=== PATIENT | male | born 1955 | race Caucasian/White ===

== ENCOUNTER 2018-03-21 14:35 | Emergency (ER) | payer MEDICAID, SELFPAY ==
[2018-03-21] VITALS (7 sets, daily range): BP systolic 103–141; BP diastolic 69–89; PULSE 86–94; RESP 16–25; TEMP 36.9; O2SAT 96–99; BMI 46.7
--- NOTE | 2018-03-21 14:49 | CT_ITS ---
STUDY: CT BRAIN WITHOUT CONTRAST REASON FOR EXAM: Male, 62 years old. Trauma RADIATION DOSAGE (If Supplied By Facility): CTDIvol = ( 44.99 ) mGy, DLP = ( 779.24 ) mGycm TECHNIQUE: Transaxial CT imaging of the brain was performed without administration of intravenous contrast material. Individualized dose optimization techniques were used for this CT. COMPARISON: Report of previous study of 04/24/2012 FINDINGS: Normal soft tissue structures. Normal calvarium. There is mild cerebral atrophy with widening of the extra-axial spaces and ventricular dilatation. Normal white matter tracts of the cerebral hemispheres. Normal basal ganglia and thalami. Normal brainstem. Normal cerebellum. There is no intracranial hemorrhage. There are no findings of an acute ischemic infarction. There is mucosal thickening of the left maxillary sinus and visualized bilateral frontal sinuses. CT/Brain/Head without Contrast IMPRESSION: Chronic involutional changes of the brain. Chronic pansinusitis. There is no intracranial hemorrhage or calvarial fracture. Electronically Signed: Sami Leon MD at 16:50 EDT , Service support ,
--- NOTE | 2018-03-21 14:51 | CT_ITS ---
STUDY: CT CERVICAL SPINE WITHOUT CONTRAST REASON FOR EXAM: Male, 62 years old. Fall. RADIATION DOSAGE (If Supplied By Facility): CTDIvol = ( 38.54 ) mGy, DLP = ( 777.17 ) mGycm TECHNIQUE: High resolution transaxial imaging was performed without contrast material. Sagittal and coronal images were reconstructed. Individualized dose optimization techniques were used for this CT. COMPARISON: None FINDINGS: Examination is limited by patient's size which causes artifact and significantly decreased resolution. Craniocervical junction and C1-C2 articulations are intact. There is straightening. There is normal alignment. No definite acute fractures or dislocations. Small fractures however cannot be excluded. Facet joints intact at all levels. Mild degenerative disc disease and loss of disc height at C5-C6 and C6-C7. The visualized soft tissues show no gross acute abnormalities. CT/Spine Cervical without Contras IMPRESSION: Limited by patient's size. No gross acute fracture/dislocation.. Electronically Signed: Juan Chou MD at 16:29 EDT , Service support ,
--- NOTE | 2018-03-21 14:59 | ED.VISSUMM ---
- ER Visit Summary Date of Service: 03/21/18 Chief Complaint: Fall unknown cause with decreased level of consciousness History of Present Illness: The patient is a 62 M who [facility]. Had a fall. Circumstances led to the fall are uncertain. The sales project manager from the nursing facility presently with the patient saw him fall. She states he had loss of consciousness. He is confused and not alert, which is abnormal for patient. Per review of old records and what sales project manager is able to tell me he is on no anticoagulant. He does have history of diabetes type 2 with insulin dependency. Patient's biggest complaint is pain. He complains of neck pain question chest pain. He does complain of head pain. He denies any nausea or vomiting. Reagent Tender states he did complain of abdominal pain. History is limited secondary to patient's altered mental status. Physical Examination: Vitals are unremarkable. He is not hypoxic. BMI is 46.8. There is no obvious head trauma. Pupils equal round reactive. Extra muscle intact. Sclerae anicteric. There is no hemotympanum. There is no CSF otorrhea or rhinorrhea. He does have pain the patient cervical spine. He remained with his head immobilized. Trachea is midline. There is no stridor. Lungs reveal rales at both bases with diminished breath sounds. This may be limited secondary fact the patient is supine as a prominent abdomen, which is restricting his expiratory volume. Heart is regular. Heart tones are distant. There is no obvious murmur, gallop or rub. Abdomen is marked for multiple ecchymotic areas. Abdominal wall veins are prominent. Unable to assess for hepatosplenomegaly secondary to body habitus. There is no caput medusa noted even though his veins are prominent. There is no CVA tenderness. Difficult to assess for thoracic lumbar tenderness. He has no pain the patient the pelvis. He has stigmata of peripheral vascular disease lower extremity. DP pulses absent bilaterally. He is not alert. He is disoriented to time. GCS is 14. He does move all extremities. DTRs are symmetric with no clonus or Babinski. Range 2 through 12 are intact. Test Results: CT of the head reveals no evidence of intracranial bleed. There is no acute findings. There is evidence of left maxillary sinusitis, chronic. C-spine reveals minimal degenerative changes C5-6. There is no fracture, subluxation or dislocation. There is no soft tissue swelling. White count is slightly elevated 12.5. Electro panel is marked for sodium 129 and chloride of 92. Glucose 119. Coags normal. EKG revealed a sinus rhythm with no ischemic changes. Emergency Department Course and Treatment: In light of patient's multiple medical problems decreased level consciousness secondary to fall need to rule out intracranial process. Since she has history of COPD with a BMI of approximate 47 one needs to rule out CO2 retention. An ABG was obtained. EKG was obtained to rule out cardiac dysrhythmia/ischemia. Appropriate blood work was also obtained including a PTT to rule out hypo-glycemia. Because he complains of neck pain a CT was obtained since he has a short neck and a cervical x-ray would be limited at best. Treatment Plan: When patient was reassessed at 1701. He was sitting up in no distress and back to baseline. The exact mechanism of his fall is unknown however with negative workup and return to baseline he will be discharged to nursing facility. Disposition: Discharged to nursing facility Impression: 1. Fall with injury 2. Concussion with loss of consciousness initial encounter 3. Hyponatremia secondary to diuretic 4. History of COPD 5. History of schizophrenia This note was generated with BlooBox dictation software. It may contain incorrect words, spelling, and punctuation that were not noted in review of the chart prior to signing ED Disposition - Plan for ED Patient: Disposition: [facility] Facility Chief Complaint: Fall Instructions: ED Fall Uncertain Cause, ED Concussion, ED Hyponatremia Referrals: Apolinar Win [Primary Care Provider] - 3-5 Days
--- NOTE | 2018-03-21 15:04 | ED.DCSUM_ITS ---
- ER Visit Summary Date of Service: 03/21/18 Chief Complaint: Fall unknown cause with decreased level of consciousness History of Present Illness: The patient is a 62 M who resides at a residential. Had a fall. Circumstances led to the fall are uncertain. The knitting machine operator from the nursing facility presently with the patient saw him fall. She states he had loss of consciousness. He is confused and not alert, which is abnormal for patient. Per review of old records and what knitting machine operator is able to tell me he is on no anticoagulant. He does have history of diabetes type 2 with insulin dependency. Patient's biggest complaint is pain. He complains of neck pain question chest pain. He does complain of head pain. He denies any nausea or vomiting. Door Frame Assembler Machine states he did complain of abdominal pain. History is limited secondary to patient's altered mental status. Physical Examination: Vitals are unremarkable. He is not hypoxic. BMI is 46.8. There is no obvious head trauma. Pupils equal round reactive. Extra muscle intact. Sclerae anicteric. There is no hemotympanum. There is no CSF otorrhea or rhinorrhea. He does have pain the patient cervical spine. He remained with his head immobilized. Trachea is midline. There is no stridor. Lungs reveal rales at both bases with diminished breath sounds. This may be limited secondary fact the patient is supine as a prominent abdomen, which is restricting his expiratory volume. Heart is regular. Heart tones are distant. There is no obvious murmur, gallop or rub. Abdomen is marked for multiple ecchymotic areas. Abdominal wall veins are prominent. Unable to assess for hepatosplenomegaly secondary to body habitus. There is no caput medusa noted even though his veins are prominent. There is no CVA tenderness. Difficult to assess for thoracic lumbar tenderness. He has no pain the patient the pelvis. He has stigmata of peripheral vascular disease lower extremity. DP pulses absent bilaterally. He is not alert. He is disoriented to time. GCS is 14. He does move all extremities. DTRs are symmetric with no clonus or Babinski. Range 2 through 12 are intact. Test Results: CT of the head reveals no evidence of intracranial bleed. There is no acute findings. There is evidence of left maxillary sinusitis, chronic. C-spine reveals minimal degenerative changes C5-6. There is no fracture, subluxation or dislocation. There is no soft tissue swelling. White count is slightly elevated 12.5. Electro panel is marked for sodium 129 and chloride of 92. Glucose 119. Coags normal. EKG revealed a sinus rhythm with no ischemic changes. Emergency Department Course and Treatment: In light of patient's multiple medical problems decreased level consciousness secondary to fall need to rule out intracranial process. Since she has history of COPD with a BMI of approximate 47 one needs to rule out CO2 retention. An ABG was obtained. EKG was obtained to rule out cardiac dysrhythmia/ischemia. Appropriate blood work was also obtained including a PTT to rule out hypo-glycemia. Because he complains of neck pain a CT was obtained since he has a short neck and a cervical x-ray would be limited at best. Treatment Plan: When patient was reassessed at 1701. He was sitting up in no distress and back to baseline. The exact mechanism of his fall is unknown however with negative workup and return to baseline he will be discharged to nursing facility. Disposition: Discharged to nursing facility Impression: 1. Fall with injury 2. Concussion with loss of consciousness initial encounter 3. Hyponatremia secondary to diuretic 4. History of COPD 5. History of schizophrenia This note was generated with Sparkroom dictation software. It may contain incorrect words, spelling, and punctuation that were not noted in review of the chart prior to signing ED Disposition - Plan for ED Patient: Disposition: Intermediate Facility Chief Complaint: Fall Instructions: ED Fall Uncertain Cause, ED Concussion, ED Hyponatremia Referrals: Apolinar Win [Primary Care Provider] - 3-5 Days
[2018-03-21 15:11] LABS: Base Excess 0 mmol/L (-2 to +2); Bicarbonate 25.5 mmol/L (22-26); Blood Gas Specimen Type ART; O2 Delivery Device Room Air; PO2 70 mmHG (75-100); SITE L Brachial; SO2 93 % (95-99); Time Given 1502; Total Carbon Dioxide 27 mmol/L; pCO2 45.8 mmHg (35-45); pH 7.36 (7.35-7.45)
[2018-03-21 15:24] LABS: Absolute Lymphocyte Count 1.73 X10^3/ul (0.83-4.51); Absolute Neutrophil Count 10.1 X10^3/uL (2.0-7.7); Basophil# 0.04 X10^3/uL; Basophil% 0.3 % (0-1); Eosinophil# 0.03 X10^3/uL; Eosinophils% 0.2 % (0-5); Hematocrit 38.6 % (40-54); Hemoglobin 12.7 g/dl (13.0-16.5); Lymphocyte # 1.73 X10^3/ul (4.0); Lymphocyte % 13.8 % (19-41); Mean Corp Hgb Conc 32.9 g/gl (32-36); Mean Corpuscular Hgb 30.4 pg (27.0-32.0); Mean Corpuscular Volume 92.3 fL (80-94); Mean Platelet Vol. 8.2 fl (6.2-12.0); Monocyte% 4.8 % (0-10); Neutrophil # 10.06 X10^3/uL (2.7-7.7); Neutrophil % 80.6 % (47-70); Platelet Count 284 K/mm3 (150-450); RBC Distribution Width CV 13.4 % (11.6-14.6); RBC Distribution Width SD 44.9 fl (35.1-43.9); Red Blood Count 4.18 M/mm3 (4.6-6.2); White Blood Count 12.5 K/mm3 (4.4-11.0)
[2018-03-21 15:25] LABS: POSITIVE COUNT NO; POSITIVE DIFFERENTIAL NO; POSITIVE MORPHOLOGY NO
[2018-03-21 15:26] LABS: Bedside Glucose 112 mg/dL (70-110)
[2018-03-21 15:29] LABS: Prothrombin Time (Protime)PT. 13.5 SECONDS (11.7-14.9)
[2018-03-21 15:30] LABS: Partial Thromboplast Time 29.1 Seconds (24.1-36.2)
--- NOTE | 2018-03-21 15:43 | RAD_ITS ---
STUDY: X-RAY CHEST REASON FOR EXAM: Male, 62 years old. Pain. TECHNIQUE: Single AP portable view of the chest. COMPARISON: 03/20/2014. FINDINGS: Limited by significant artifact from spine board. Normal lung volumes. Cannot exclude 1.8 cm nodule just beyond the left heart border in the mid left lung. CT scan recommended. No infiltrates. No effusions. Normal size heart. Normal mediastinum and ruben. Normal visualized pulmonary arteries. Normal visualized aortic arch and descending thoracic aorta. Normal visualized thoracic spine. Normal visualized ribs, clavicles, and shoulders. There is no demonstrated abnormality of the visualized soft tissue structures of the upper abdomen. RAD/Chest 1 View (Portable) IMPRESSION: Cannot exclude 1.8 cm nodule just beyond the left heart border in the mid left lung. CT scan recommended. Electronically Signed: Juan Chou MD at 15:51 EDT , Service support ,
[2018-03-21 15:45] LABS: Anion Gap 7 (5-15); BUN 13 mg/dL (7-18); BUN/Creat Ratio 11.3 RATIO (10-20); Calcium,Total 9.4 mg/dL (8.5-10.1); Chloride 92 mmol/L (98-107); Creatinine, Serum 1.15 mg/dL (0.70-1.30); EST Glomerular Filtration Rate 69 mL/min (>60); Est Glom Filt Rate - Afr Amer 83 mL/min (>60); Estimated Creatinine Clearance 47.71 ml/min; Glucose 119 mg/dL (74-106); Potassium 4.5 mmol/L (3.5-5.1); Sodium Level 129 mmol/L (136-145)
[2018-03-21 17:05] LABS: Color, Urine Yellow (Yellow); Glucose, Dipstick NEGATIVE (Normal); Ketone-Dipstick Negative (Negative); Protein-Dipstick 30 mg/dl (Negative); Urine Bilirubin Dipstick Negative (Negative); Urine Clarity Sl Cloudy (Clear); Urine Urobilinogen Normal (Normal)
[2018-03-21 17:06] LABS: Leukocyte Esterase-Dipstick 25 /ul (Negative); Nitrite-Dipstick Negative (Negative); Occult Blood-Urine Negative /ul (Negative)
[2018-03-21 17:08] LABS: Bacteria RARE /hpf (None Seen); Hyaline Cast 0-5 SEEN /lpf (0-5); Mucous, Urine 1+ /hpf (<or=2+); Red Blood Cells-Urine 0-5 SEEN /hpf (0-5); Squamous Epithelial Cells - UA 0-5 SEEN /hpf (0-5); White Blood Cells 0-5 SEEN /hpf (0-5)
== END 2018-03-21 17:50 | disposition skilled nursing facility (03) ==
PROVIDERS: Emergency Provider Emergency Medicine; Family Provider Family Medicine; PCP Family Medicine
DX: S06.0X9A Concussion with loss of consciousness of unspecified duration, initial encounter (principal); W19.XXXA Unspecified fall, initial encounter; Y93.9 Activity, unspecified; Y92.129 Unspecified place in nursing home as the place of occurrence of the external cause; E87.1 Hypo-osmolality and hyponatremia; J44.9 Chronic obstructive pulmonary disease, unspecified; F20.9 Schizophrenia, unspecified; I73.9 Peripheral vascular disease, unspecified; E66.9 Obesity, unspecified; Z68.42 Body mass index [BMI] 45.0-49.9, adult; E11.9 Type 2 diabetes mellitus without complications; I10 Essential (primary) hypertension; E03.9 Hypothyroidism, unspecified; Z79.82 Long term (current) use of aspirin; Z79.4 Long term (current) use of insulin; Z79.899 Other long term (current) drug therapy
CPT/HCPCS: 36600; 70450; 71045; 72125; 80048; 81001; 82803; 82962; 84484; 85025; 85610; 85730; 99285; P9612; A4216

== ENCOUNTER 2023-12-10 08:53 | Inpatient (IN) | payer MEDICAID, SELFPAY ==
[2023-12-10] VITALS (15 sets, daily range): BP systolic 95–114; BP diastolic 30–71; PULSE 80–92; RESP 16–24; TEMP 36.4–37.4; O2SAT 91–100; BMI 40.6
--- NOTE | 2023-12-10 09:08 | EKG12_ITS ---
Test Reason : SOB Blood Pressure : / mmHG Vent. Rate : 090 BPM Atrial Rate : 090 BPM P-R Int : 154 ms QRS Dur : 130 ms QT Int : 356 ms P-R-T Axes : 065 -78 032 degrees QTc Int : 435 ms Normal sinus rhythm Left axis deviation Right bundle branch block Abnormal ECG Confirmed by VIOLETTA PAINTER, SUMI ([id number]), editor continuity and script ASIF HUERTA ([id number]) on 12/11/2023 6:24:02 AM Referred By: JONATHON/SHAINA Confirmed By:SUMI SHIPLEY MD
--- NOTE | 2023-12-10 09:09 | ED.VIS.DYS ---
HPI History of Present Illness Chief Complaint: Shortness of Breath Informant: patient and EMS Onset/Context/Timing Onset: Today Context: gradual Timing: Continuous Current Severity: Moderate Maximum Severity: Moderate Associated Symptoms cough Chest Pain: Positive for None Narrative Narrative: 68-year-old male extensive past medical history of COPD, CHF, diabetes and Lynn's palsy. He is currently resides at [facility]. Reportedly today he had a room air pulse ox of 79% and it jumped up to 96% on 2 L. He was given a breathing treatment prior to arrival. Patient states he has not felt well for a week. He denies any fever but states he said a cough with nausea, vomiting and diarrhea. PE Risk Factors: Negative for Cancer, OCP + Smoking + > 35, Prior DVT or PE, Recent surgery or Recent travel Prior similar symptoms: No Recent Illness/Hospitalization: No [facility] Medical History (Updated 12/10/23 @ 11:[address] Jenna Howell, DO) Diabetes mellitus type II GERD History of Lynn's palsy History of COPD History of diabetes mellitus Hypertension Hypothyroidism Schizophrenia Home Medications acetaminophen 500 mg tablet 500 mg PO TID 03/20/14 [History Last Taken Unknown] aspirin 81 mg chewable tablet 81 mg PO DAILY@0800 03/20/14 [History Last Taken Unknown] benztropine 2 mg tablet 1 mg PO DAILY 03/20/14 [History Last Taken Unknown] carbamazepine 200 mg tablet (Tegretol) 200 mg PO 4X/DAY 03/20/14 [History Last Taken Unknown] clozapine 100 mg tablet (Clozaril) 100 mg PO BID 03/20/14 [History Last Taken Unknown] clozapine 200 mg tablet 500 mg PO QHS 03/20/14 [History Last Taken Unknown] duloxetine 20 mg capsule,delayed release 20 mg PO DAILY 03/20/14 [History Last Taken Unknown] ergocalciferol (vitamin D2) 1,250 mcg (50,000 unit) capsule (Vitamin D2) 50,000 unit PO Q7D 03/20/14 [History Last Taken Unknown] famotidine 20 mg tablet 20 mg PO BID 03/20/14 [History Last Taken Unknown] fluticasone 250 mcg-salmeterol 50 mcg/dose blistr powdr for inhalation (Advair Diskus) 1 puff inhalation BID 03/20/14 [History Last Taken Unknown] folic acid 800 mcg tablet 1 mg PO DAILY 03/20/14 [History Last Taken Unknown] furosemide 40 mg tablet 20 mg PO DAILY 03/20/14 [History Last Taken Unknown] levothyroxine 75 mcg tablet 75 mcg PO DAILY 03/20/14 [History Last Taken Unknown] lisinopril 2.5 mg tablet 2.5 mg PO DAILY 03/20/14 [History Last Taken Unknown] lorazepam 0.5 mg tablet 1 mg PO TID 03/20/14 [History Last Taken Unknown] metformin 500 mg tablet 500 mg PO BIDCM 03/20/14 [History Last Taken Unknown] metoprolol succinate 25 mg tablet,extended release 24 hr 12.5 mg PO DAILY 03/20/14 [History Last Taken Unknown] olanzapine 20 mg tablet (Zyprexa) 15 mg PO DAILY 03/20/14 [History Last Taken Unknown] omega-3 fatty acids-fish oil 340 mg-1,000 mg capsule (Fish Oil) 1 ea PO DAILY 03/20/14 [History Last Taken Unknown] simvastatin 40 mg tablet 40 mg PO QHS 03/20/14 [History Last Taken Unknown] albuterol sulfate 90 mcg/actuation aerosol inhaler (ProAir HFA) 2 puff inhalation Q4H PRN PRN Wheezing 03/21/14 [History Last Taken Unknown] albuterol sulfate 90 mcg/actuation aerosol inhaler (Ventolin HFA) 2 puff inhalation Q3H PRN Wheezing 03/21/14 [History Last Taken Unknown] aluminum-mag hydroxide-simethicone 400 mg-400 mg-40 mg/5 mL oral susp (Mag-Al Plus Extra Strength) 30 ml PO Q4H PRN PRN Indigestion 03/21/14 [History Last Taken Unknown] magnesium hydroxide 400 mg/5 mL oral suspension 30 ml PO DAILY PRN PRN Constipation 03/21/14 [History Last Taken Unknown] tramadol 50 mg tablet 50 mg PO Q6H PRN PRN Pain 03/21/14 [History Last Taken Unknown] calcium carbonate 500 mg calcium (1,250 mg) tablet 500 mg PO BID 03/21/18 [History Last Taken Unknown] insulin glargine 100 unit/mL subcutaneous solution (Lantus U-100 Insulin) 5 unit subcut QHS 03/21/18 [History Last Taken Unknown] montelukast 10 mg tablet 10 mg PO DAILY 03/21/18 [History Last Taken Unknown] sodium chloride 1 gram tablet 1 g PO BID 03/21/18 [History Last Taken Unknown] tamsulosin 0.4 mg capsule 0.4 mg PO DAILY 03/21/18 [History Last Taken Unknown] albuterol sulfate 2.5 mg/3 mL (0.083 %) solution for nebulization 2.5 mg inhalation Q4H PRN shortness of breath or wheezing 12/10/23 [History Last Taken Unknown] Allergy/AdvReac Type Severity Reaction Status Date / Time No Known Allergies Allergy Verified 12/10/23 09:00 Social History Smoking Status: Light Smoker (<10/day) ROS ROS ED ROS Narrative Cough. Nausea, vomiting diarrhea. Review of Systems ROS Unobtainable: Denies due to encephalopathy Constitutional Constitutional ED: Denies chills or fever(s) ENT ENT ED: Denies ear pain Cardiovascular Cardiovascular: Denies chest pain Respiratory/Chest Respiratory/Chest: Reports cough; Denies dyspnea Gastrointestinal Gastrointestinal: Reports diarrhea, nausea and vomiting; Denies abdominal pain, constipation or melena Genitourinary Genitourinary ED: Denies dysuria Musculoskeletal Musculoskeletal: Denies arthralgias Integumentary Denies abscess Neurologic Neurologic: Denies headache(s) Psychiatric Psychiatric: Denies anxiety Endocrine Endocrinology: Denies cold intolerance Hematologic/Lymphatic Hematologic/Lymphatic: Denies easy bleeding Allergic/Immunologic Allergic/Immunologic ED: Denies mouth swelling, tongue swelling or urticaria EXAM Physical Exam Narrative Exam Narrative: 68-year-old male vital signs are 6 show a initial blood pressure 97/30. He is hypotensive. Temperature nine 9.3. Pulse ox 92% on oxygen. Reportedly was 79% on room air earlier today. HEENT exam pupils round reactive light. No facial trauma. No facial droop. Moist mucous membranes. Neck nontender. No lymphadenopathy. Lungs coarse breath sounds bilaterally. No wheezing. No appreciable rhonchi. Heart regular rhythm rate about 90 no murmur. Chest wall and ribs nontender. Abdomen soft nontender. Moving all 4 extremities. Nontender no deformity. No edema. Neurologically he is awake. He is answering questions. He has no focal motor deficit except he does have right facial palsy with a history of Lnyn's palsy. Const Vital Signs: 03/13/24 08:55 12/10/23 08:59 12/10/23 09:42 Temperature 99.3 F H 99.3 F H Temperature Source Oral Oral Pulse Rate 92 92 87 Respiratory Rate 24 H 24 H 22 H Respiratory Effort Respiratory Depth Respiratory Pattern Blood Pressure 97/30 L 97/30 L 113/62 Blood Pressure Mean 52 52 79 Pulse Ox 92 92 92 Oxygen Delivery Method Room Air Room Air Room Air 12/10/23 10:03 12/10/23 10:03 12/10/23 10:05 Temperature 99.3 F H Temperature Source Temporal Pulse Rate 86 86 Respiratory Rate 21 H 21 H Respiratory Effort Short of Breath Respiratory Depth Normal Respiratory Pattern Tachypnea Blood Pressure 112/64 112/64 Blood Pressure Mean 80 80 Pulse Ox 91 92 Oxygen Delivery Method Room Air Room Air Room Air Positive well nourished, well developed and obese; Negative for cachectic, contractures or unkempt General Appearance ED: well developed; Negative for unkempt, cachectic, contractures, NAD or pallor Nutritional Appearance: obese; Negative for cachectic HEENT Reports moist mucous membranes atraumatic; Negative for trauma or tenderness Eyes PERRL and EOMs intact bilaterally General Eye ED: Negative for pale conjunctiva or scleral icterus Neck no lymphadenopathy, supple, no meningeal signs and no JVD Lymph Lymphatic: Negative for other Resp normal respiratory effort and clear to auscultation bilaterally Effort and Inspection: Negative for pain with movement Auscultation: Negative for rales, rhonchi, wheezes or diminished lung sounds Cardio regular rate, regular rhythm, S1 normal heart sound, S2 normal heart sound and no murmurs Rate: Negative for bradycardia or tachycardic Rhythm: Negative for abnormal rhythm GI non-tender, non-distended and no masses Inspection: Negative for other Palpation: soft; Negative for tender, guarding or rebound tenderness present Back/Spine no CVA tenderness and normal to inspection General Back: Negative for CVA tenderness Extremity normal to inspection General Extremety ED: Negative for edema or tenderness General Extremity: Negative for edema Neuro No oriented x3 Neuro Narrative: Right facial droop. Sensorium / Orientation: alert, oriented to person and oriented to place; Negative for oriented to time Motor Exam: strength 5/5 throughout Psych mental status grossly normal Appearance: Negative for unkempt Attitude: No agitated Mood & Affect: Negative for depressed, anxious or tearful Skin no wounds General Skin Exam: Negative for jaundice or pallor Lesions: no lesions Rashes: no rashes Trauma: Negative for abrasion or laceration MDM MDM MDM Narrative Medical decision making narrative: 68-year-old male extensive past medical history from extended-care facility with hypotension 97/30 and hypoxic on room air at 79%. Due to his hypotension low-grade fever he meets the sepsis protocol be put to the sepsis protocol. Tylenol for his fever. IV fluid bolus. Most likely will need to be admitted. Repeat exam at 10:40 AM patient resting comfortably. Currently is not hypoxic his pulse ox on room air is between 92 to 94%. He is in no respiratory distress. He is receiving IV fluids. He did not get the Tylenol because he has trouble with potential aspiration. I have the hospitalist on page for admission. We will start the patient on IV antibiotics both Zithromax and Rocephin until proven whether he has pneumonia or not. History & Record Review Discussion w/independent historian: EMS personnel and Patient Additional record(s) reviewed:: Prior inpatient record, Prior outpatient record, Prior ED visit and Prior labs Lab Data Attestation: I reviewed the patient's lab results. Lab results narrative: CBC shows a normal white count 9.1. H&H 10.5 and 31.6. Platelets 233. Hemoglobin was previously 12.7. PT/INR 13 and 1. PTT 32. Electrolytes show sodium 131. Gap of 8. BUN 27 creatinine 1.42. Kidney function was previously normal. Glucose 135. Lactic acid 2.0. Liver enzymes unremarkable. COVID-negative. Flu a positive. Chest x-ray possible left hilar and left upper lobe infiltrate. Labs: Laboratory Results - last 24 hr 12/10/23 09:16 WBC 9.1 RBC 3.48 L Hgb 10.5 L Hct 31.6 L MCV 90.8 MCH 30.2 MCHC 33.2 RDW Std Deviation 44.8 H RDW Coeff of Reid 13.4 Plt Count 233 MPV 9.0 Immature Gran % (Auto) 0.400 Neut % (Auto) 87.8 H Lymph % (Auto) 4.5 L [place] % (Auto) 7.1 Eos % (Auto) 0.0 Baso % (Auto) 0.2 Absolute Neuts (auto) 8.0 H Absolute Lymphs (auto) 0.41 L Nucleated RBC % 0 PT 13.9 INR 1.1 APTT 32.4 Sodium 131 L Potassium 4.3 Chloride 97 L Carbon Dioxide 26.0 Anion Gap 8 BUN 27 H Creatinine 1.42 H Estim Creat Clear Calc 50.22 Est GFR (MDRD) Af Amer 64 Est GFR (MDRD) Non-Af 53 L BUN/Creatinine Ratio 19.0 Glucose 135 H Lactic Acid 2.0 Calcium 8.8 Total Bilirubin 0.60 AST 36 ALT 31 Alkaline Phosphatase 88 Total Protein 7.4 Albumin 3.1 L Globulin 4.3 H Albumin/Globulin Ratio 0.7 L Radiography Chest X-Ray - ED: 1 View, Read by ED Physician, Heart, Mediastinum, Bony Structures, Chronic Changes and Left Infiltrate Diagnostic Testing: Clinical Impression(s) from Imaging Studies Chest X-Ray 12/10/23 09:15 IMPRESSION: Patchy left perihilar and left lower lobe infiltrate. Electronically Signed: Cleve Clarke MD at 10:15 EDT , Chest x-ray, portable, single view interpreted both by myself and the radiologist shows a left hilar and left upper lobe possible infiltrate. Rhythm Strip Rhythm Strip: Sinus Rhythm Rate: 90 Ectopy: None EKG Initial EKG: Attestation: I personally reviewed and interpreted this EKG as follows: Interpretation: Sinus Rhythm and No Acute Injury Pattern Comments: Normal sinus rhythm rate of 90 no acute signs of [place] or ischemia. Right bundle branch block. Discharge Plan Dx/Rx/DC Orders Clinical Impression: Acute kidney injury, Acute dehydration, History of COPD, Influenza A, Anemia, Hypoxia, History of Lynn's palsy, History of diabetes mellitus, Pneumonia Disposition Disposition: Acute Care [facility]
[2023-12-10] MEDS: 0.9% Normal Saline (1000mL) 1,000 ML 999 ML IV (09:15)
--- NOTE | 2023-12-10 09:15 | RAD_ITS ---
STUDY: X-RAY CHEST REASON FOR EXAM: Male, 68 years old. Cough TECHNIQUE: Single AP portable view of the chest. COMPARISON: Comparison is made with prior study dated March 21, 2018. FINDINGS: EKG electrodes are seen. Patchy left perihilar and left lower lobe infiltrate. There is no demonstrated pleural abnormality. Normal size heart. Normal mediastinum and ruben. Normal visualized pulmonary arteries. Normal visualized aortic arch and descending thoracic aorta. There are diffuse degenerative changes of the visualized thoracic spine. Normal visualized ribs, clavicles, and shoulders. There is no demonstrated abnormality of the visualized soft tissue structures of the upper abdomen. RAD/Chest 1 View (Portable) IMPRESSION: Patchy left perihilar and left lower lobe infiltrate. Electronically Signed: Cleve Clarke MD at 10:15 EDT ,
[2023-12-10 09:37] LABS: Absolute Lymphocyte Count 0.41 X10^3/uL (0.83-4.51); Basophil# 0.02 X10^3/uL; Basophil% 0.2 % (0-1); Hematocrit 31.6 % (40-54); Hemoglobin 10.5 g/dL (13.0-16.5); Lymphocyte # 0.41 X10^3/ul (0.83-4.51); Lymphocyte % 4.5 % (19-41); Mean Corp Hgb Conc 33.2 g/dL (32-36); Mean Corpuscular Hgb 30.2 pg (27.0-32.0); Mean Corpuscular Volume 90.8 fL (80-94); Monocyte# 0.65 X10^3/uL; Monocyte% 7.1 % (0-10); NRBC Flagged by Analyzer 0 % (0-5); Neutrophil # 7.99 X10^3/uL (2.7-7.7); Neutrophil % 87.8 % (47-70); POSITIVE DIFFERENTIAL YES; Platelet Count 233 K/mm3 (150-450); RBC Distribution Width CV 13.4 % (11.6-14.6); RBC Distribution Width SD 44.8 fl (35.1-43.9); Red Blood Count 3.48 M/mm3 (4.6-6.2); White Blood Count 9.1 K/mm3 (4.4-11.0)
[2023-12-10 09:47] LABS: International Normalized Ratio 1.1; Prothrombin Time (Protime)PT. 13.9 SECONDS (11.7-14.9)
[2023-12-10 09:48] LABS: Partial Thromboplast Time 32.4 Seconds (24.1-36.2)
[2023-12-10 09:53] LABS: ALB/GLOB Ratio 0.7 RATIO (0.9-2.4); AST(SGOT) 36 U/L (15-37); Alanine Aminotransfer ALT/SGPT 31 U/L (16-61); Albumin, Serum 3.1 g/dL (3.2-5.0); Alkaline Phosphatase 88 U/L (45-117); Anion Gap 8 (5-15); BUN 27 mg/dL (7-18); Calcium,Total 8.8 mg/dL (8.5-10.1); Chloride 97 mmol/L (98-107); Creatinine, Serum 1.42 mg/dL (0.70-1.30); EST Glomerular Filtration Rate 53 mL/min (>60); Est Glom Filt Rate - Afr Amer 64 mL/min (>60); Estimated Creatinine Clearance 50.22 ml/min; Globulin 4.3 g/dL (2.2-4.2); Glucose 135 mg/dL (74-106); Potassium 4.3 mmol/L (3.5-5.1); Protein, Total 7.4 g/dL (6.4-8.2); Sodium Level 131 mmol/L (136-145)
--- NOTE | 2023-12-10 10:06 | ED.RN ---
rn at the bedside to administer po tylenol, patient states he is able to swallow pills. rn has pt swallow water first and pt coughs on water. dr coleman notified at this time.
--- NOTE | 2023-12-10 10:50 | NURSING ---
DR GIBRAN MERRITT
--- NOTE | 2023-12-10 10:59 | HP.PCM.HOS_ITS ---
HPI - General General Date of Admission: 12/10/23 Date of Service: 12/10/23 Chief Complaint: Shortness of breath HPI Narrative FAYE TRINIDAD, is a 68 M who presented to the emergency department at [facility] on 12/10/2023 with shortness of breath. He is currently a resident at [facility] and they have an outbreak of influenza. Per report from [facility] he had a pulse ox of about 79% on room air and then it jumped up to 96% on 2 L nasal cannula. He was given a breathing treatment prior to arrival. Patient indicated on presentation he had not been well for about a week. He denies fever but stated he has had a cough with some nausea and intermittent vomiting and diarrhea. 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 On presentation he was found of a temperature of 99.3, blood pressure was 97/30, respiratory was 24 and oxygen saturation here was initially 92% on room air. His CBC shows a normal white count with a chronic anemia that is stable and a left shift with an 87.8% neutrophilia. Coags were normal. His chemistry panel showed mild hyponatremia that appears to be chronic and likely precipitated from his psych medications as well as an elevated BUN/creatinine at 27 and 1.42 with apparent baseline of 1.0-1.2. His glucose was mildly elevated at 135. Lactic acid was normal. Chest x-ray showed a patchy left perihilar and left lower lobe infiltrate. Rapid flu was positive on presentation. He was given aerosols and started on antibiotics in the emergency department and request for admission was made. [facility] Medical History Diabetes mellitus type II GERD History of Lynn's palsy History of COPD History of diabetes mellitus Hypertension Hypothyroidism Schizophrenia Home Medications acetaminophen 500 mg tablet 1,000 mg PO TID 03/20/14 [History Last Taken Unknown] carbamazepine 200 mg tablet (Tegretol) 200 mg PO 4X/DAY 03/20/14 [History Last Taken Unknown] clozapine 100 mg tablet (Clozaril) 100 mg PO BID SCHIZOPHRENIA 03/20/14 [History Last Taken Unknown] duloxetine 20 mg capsule,delayed release 20 mg PO DAILY 03/20/14 [History Last Taken Unknown] famotidine 20 mg tablet 20 mg PO BID 03/20/14 [History Last Taken Unknown] fluticasone 250 mcg-salmeterol 50 mcg/dose blistr powdr for inhalation (Advair Diskus) 1 puff inhalation BID 03/20/14 [History Last Taken Unknown] levothyroxine 75 mcg tablet 75 mcg PO DAILY 03/20/14 [History Last Taken Unknown] lisinopril 2.5 mg tablet 2.5 mg PO DAILY 03/20/14 [History Last Taken Unknown] metformin 500 mg tablet 1,000 mg PO BID 03/20/14 [History Last Taken Unknown] metoprolol succinate 25 mg tablet,extended release 24 hr 12.5 mg PO DAILY 03/20/14 [History Last Taken Unknown] simvastatin 40 mg tablet 40 mg PO QHS 03/20/14 [History Last Taken Unknown] albuterol sulfate 90 mcg/actuation aerosol inhaler (ProAir HFA) 2 puff inhalation Q4H PRN PRN Wheezing 03/21/14 [History Last Taken Unknown] magnesium hydroxide 400 mg/5 mL oral suspension 30 ml PO DAILY PRN Constipation 03/21/14 [History Last Taken Unknown] calcium carbonate 500 mg calcium (1,250 mg) tablet 500 mg PO BID 03/21/18 [History Last Taken Unknown] montelukast 10 mg tablet 10 mg PO DAILY 03/21/18 [History Last Taken Unknown] tamsulosin 0.4 mg capsule 0.4 mg PO DAILY 03/21/18 [History Last Taken Unknown] albuterol sulfate 2.5 mg/3 mL (0.083 %) solution for nebulization 2.5 mg inhalation Q4H PRN shortness of breath or wheezing 12/10/23 [History Last Taken Unknown] aluminum-mag hydroxide-simethicone 200 mg-200 mg-20 mg/5 mL oral susp (Antacid) 30 ml PO Q4H PRN GI UPSET 12/10/23 [History Last Taken Unknown] aspirin 81 mg tablet,delayed release 81 mg PO DAILY 12/10/23 [History Last Taken Unknown] benztropine 0.5 mg tablet 0.5 mg PO DAILY 12/10/23 [History Last Taken Unknown] bisacodyl 10 mg rectal suppository (Dulcolax (bisacodyl)) 10 mg OK DAILY PRN constipation 12/10/23 [History Last Taken Unknown] cholecalciferol (vitamin D3) 1,250 mcg (50,000 unit) capsule 1,250 mcg PO TU 12/10/23 [History Last Taken Unknown] clozapine 100 mg tablet 500 mg PO QHS SCHIZOPHRENIA 12/10/23 [History Last Taken Unknown] docusate sodium 100 mg tablet 100 mg PO DAILY CONSTIPATION 12/10/23 [History Last Taken Unknown] folic acid 400 mcg tablet 400 mcg PO DAILY 12/10/23 [History Last Taken Unknown] furosemide 20 mg tablet 20 mg PO DAILY 12/10/23 [History Last Taken Unknown] ibuprofen 400 mg tablet (IBU) 400 mg PO Q6H PRN pain 12/10/23 [History Last Taken Unknown] lorazepam 1 mg tablet (Ativan) 1 mg PO TID 12/10/23 [History Last Taken Unknown] nicotine (polacrilex) 2 mg buccal lozenge 2 mg PO Q2H 12/10/23 [History Last Taken Unknown] nicotine 10 mg inhalation cartridge (Nicotrol) 1 inh inhalation Q2H PRN nicotine cravings 12/10/23 [History Last Taken Unknown] olanzapine 15 mg tablet 15 mg PO QHS 12/10/23 [History Last Taken Unknown] omega-3 fatty acids 1,000 mg capsule 1,000 mg PO BID CHOLESTEROL 12/10/23 [H istory Last Taken Unknown] oseltamivir 75 mg capsule (Tamiflu) 75 mg PO BID 12/10/23 [History Last Taken Unknown] sodium chloride 1,000 mg soluble tablet 1,000 mg PO BID 12/10/23 [History Last Taken Unknown] white petrolatum 44 % topical ointment (DermaPhor) 1 ea topical PRN DRY SKIN 12/10/23 [History Last Taken Unknown] Allergy/AdvReac Type Severity Reaction Status Date / Time No Known Allergies Allergy Verified 12/10/23 09:00 unable to obtain unable to obtain Social History Smoking Status: Light Smoker (<10/day) ROS ROS Narrative Speech is fairly unintelligible and patient is somewhat confused so review of systems was extremely difficult and patient was not able to contribute much at this time Vital Signs Vital Signs Vital Signs: 12/10/23 08:55 12/10/23 08:59 12/10/23 09:42 Temperature 99.3 F H 99.3 F H Temperature Source Oral Oral Pulse Rate 92 92 87 Respiratory Rate 24 H 24 H 22 H Respiratory Effort Respiratory Depth Respiratory Pattern Blood Pressure 97/30 L 97/30 L 113/62 Blood Pressure Mean 52 52 79 Pulse Ox 92 92 92 Oxygen Delivery Method Room Air Room Air Room Air 12/10/23 10:03 12/10/23 10:03 12/10/23 10:05 Temperature 99.3 F H Temperature Source Temporal Pulse Rate 86 86 Respiratory Rate 21 H 21 H Respiratory Effort Short of Breath Respiratory Depth Normal Respiratory Pattern Tachypnea Blood Pressure 112/64 112/64 Blood Pressure Mean 80 80 Pulse Ox 91 92 Oxygen Delivery Method Room Air Room Air Room Air Weight Weight: 97.4 kg Body Mass Index (BMI) 40.6 Physical Exam Const alert, no apparent distress and well nourished; Negative for average body habitus or healthy appearing Constitutional Narrative: Mild confusion, speech is garbled which is his baseline due to history of Lynn's palsy and psychiatric disorder, morbidly obese, male, sitting up in bed, very pleasant and eye contact is good, nursing at bedside, currently pillows comfor table and nontoxic overall. General Appearance: cooperative HEENT normocephalic, head/scalp atraumatic and hearing grossly normal bilaterally HEENT Narrative: Mallampati 4, large tongue, no thrush, edentulous Eyes PERRL, EOMs intact bilaterally and conjunctivae normal Eyes Narrative: No scleral icterus Neck no lymphadenopathy and supple Neck Narrative: Trachea midline, no thyroid enlargement Resp no retractions, no use of accessory muscles and No clear to auscultation bilaterally Resp Narrative: Mild tachypnea, scattered end expiratory wheezing diffusely Auscultation: wheezes; Negative for rales or rhonchi Cardio regular rate, regular rhythm, S1 normal heart sound, S2 normal heart sound, no murmurs, no rub, no gallops and no clicks GI normal to inspection, nondistended, normoactive bowel sounds, soft to palpation and non-tender Extremity no clubbing, cyanosis or edema Extremity Narrative: Pedal pulses are 2+, feet are considerably dry and have extensive callus formation Skin no rashes or lesions noted, no wounds, skin turgor normal, no jaundice, no petechiae and no mottling Neuro No CN's II-XII intact bilaterally, moves all extremities and no focal motor deficits Neuro Narrative: Follows commands well but speech is difficult to understand, chronic facial droop on the right, no significant weakness noted Sensorium / Orientation: awake, alert and oriented to person Speech: Negative for speech normal Psych affect normal Psych Narrative: Very pleasant, interacts appropriately Results Lab / Micro Data 12/10/23 09:16 12/10/23 09:16 Labs: Laboratory Results - last 24 hr 12/10/23 09:16: WBC 9.1, RBC 3.48 L, Hgb 10.5 L, Hct 31.6 L, MCV 90.8, MCH 30.2, MCHC 33.2, RDW Std Deviation 44.8 H, RDW Coeff of Reid 13.4, Plt Count 233, MPV 9.0, Immature Gran % (Auto) 0.400, Neut % (Auto) 87.8 H, Lymph % (Auto) 4.5 L, [place] % (Auto) 7.1, Eos % (Auto) 0.0, Baso % (Auto) 0.2, Absolute Neuts (auto) 8.0 H, Absolute Lymphs (auto) 0.41 L, Nucleated RBC % 0, PT 13.9, INR 1.1, APTT 32.4, Sodium 131 L, Potassium 4.3, Chloride 97 L, Carbon Dioxide 26.0, Anion Gap 8, BUN 27 H, Creatinine 1.42 H, Estim Creat Clear Calc 50.22, Est GFR (MDRD) Af Amer 64, Est GFR (MDRD) Non-Af 53 L, BUN/Creatinine Ratio 19.0, Glucose 135 H, Lactic Acid 2.0, Calcium 8.8, Total Bilirubin 0.60, AST 36, ALT 31, Alkaline Phosphatase 88, Total Protein 7.4, Albumin 3.1 L, Globulin 4.3 H, Albumin/Globulin Ratio 0.7 L Micro: Microbiology 12/10/23 09:15 Mucosa - Nose SARS-CoV-2, Influenza & RSV (PCR) - Final Influenzae A Rhythm Strip Rhythm Strip: Sinus Rhythm Rate: 90 Ectopy: None Imaging Radiology Impression Chest X-Ray 12/10/23 09:15 IMPRESSION: Patchy left perihilar and left lower lobe infiltrate. Electronically Signed: Cleve Clarke MD at 10:15 EDT , Assessment & Plan Assessment/Plan (1) Pneumonia: (2) Influenza A: (3) Anemia: (4) Hypoxia: (5) Acute dehydration: (6) Hyponatremia: (7) Elevated serum creatinine: (8) COPD with acute exacerbation: PLAN: Plan Acute hypoxic respiratory failure secondary to viral pneumonia plus minus bacterial superinfection/acute exacerbation of COPD -Patient was found to be hypoxic on room air at his extended care facility with an oxygen saturation 79% and improved to 96 on 2 L nasal cannula -Wean oxygen as able -Influenza A is positive -Patient was started on Tamiflu as an outpatient will continue -Check respiratory viral panel -Check strep pneumo and Legionella antigens -Will cover with ceftriaxone and azithromycin for now -Steroids 40 every 8 -Aggressive pulmonary toilet -Incentive spirometry and Acapella if patient can participate -Check sputum culture if able to be produced Hyponatremia -Appears to be chronic and likely related to his baseline psychiatric medications -Continue home sodium chloride tablets Anemia -Appears to be chronic -Check iron studies -No acute workup needed any further at this time Elevated serum creatinine -Admission serum creatinine slightly above baseline and appears to be related to dehydration -Gentle hydration -Repeat lab in a.m. -Hold home ibuprofen COPD -Hold home inhalers -Pulmonary toilet as noted above 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 DM-2 -Hold home metformin -SSI -Accu-Cheks as ordered Hyperlipidemia -Continue home simvastatin BPH with obstruction -Continue home Flomax Allergies -Continue home Singulair Hypertension -continue home metoprolol -Continue lisinopril -Continue home Lasix Hypothyroidism -Check TSH -Continue home levothyroxine Schizophrenia -Continue home Clozaril -Continue home Tegretol -Continue home Cogentin -Continue home Ativan -Continue home olanzapine DVT prophylaxis -Subcu Lovenox twice daily due to BMI greater than 40 CODE STATUS -DNR CCA with no intubation per records from [facility] Charges/Coding Visit Charges Inpatient E&M: 62649 Init Hosp L2
--- NOTE | 2023-12-10 11:04 | NURSING ---
MED SURG GIBRAN FLU A, DEHYDRATED, PNEUMONIA, HYPOXIA, ANEMIA
[2023-12-10] MEDS: Ceftriaxone 1 GM/50 ML BAG IV (11:33)
[2023-12-10 11:45] LABS: Ferritin 83 ng/mL (26-388); Iron 31 ug/dL (65-175); Iron Binding Capacity,Total 220 ug/dL (250-450); PERCENT IRON SATURATION 14.1 % (15.0-55.0)
[2023-12-10] MEDS: Azithromycin 500 MG in Dextrose 5%-Water (250mL Bag) 250 ML 250 MG IV (12:09)
[2023-12-10 13:26] LABS: Reflex Lactate? Y
--- NOTE | 2023-12-10 14:36 | NURSING ---
in to see patient with Primary RN. noted confusion, pt rolling tongue. hard to understand at times other times responses clear and appropriately. talked with Vesta RN in ER to establish baseline cognition, aware slurred words/ confused for them. talked with Makenna nurse at [facility] [place] states patient's baseline is a&ox3 but hard to understand and slurs words at time. per Dr. Dante garciaop is chronic, hx grimaldo's palsy. primary RN aware.
[2023-12-10] MEDS: Lactated Ringers 1,000 ML 75 ML IV (15:31)
[2023-12-10 16:15] LABS: Bedside Glucose 107 mg/dL (74-106)
[2023-12-10] MEDS: Ipratropium/Albuterol Sulfate 3 ML AMPUL.NEB INHALATION ×2 (19:57→23:16)
[2023-12-10] MEDS: Enoxaparin 40 MG/0.4 ML Syringe SC (20:32)
[2023-12-10] MEDS: guaiFENesin 1,200 MG Tablet 1200 MG PO (20:32)
--- OUTSIDE RECORDS SUMMARY | 2023-12-10 21:40 | XMS RPT_ITS | CCD ---
Author Name Unknown Address [address] [place] [address] Organization [facility] Care Team Providers Care Cooler Man Name Role Phone Aurelia Celaya MD Unavailable [phone] WINDY REED Unavailable Unavailable Jaylen Win Unavailable Unavailable Jaylen Win Unavailable Unavailable Aurelia Celaya MD Unavailable [phone] Medications Completed/Discontinued Medications Medication Drug Class(es) Dates Sig (Normalized) Sig (Original) ACETAMINOPHEN CAPS (2 sources) Start: 05-22-2017 TYLENOL CAPS ACETAMINOPHEN CAPS [id number] Aurelia Celaya MD ALBUTEROL SULFATE (4 sources) beta2-Adrenergic Agonist Start: 05-22-2017 ALBUTEROL SULFATE (2.5 MG/3ML) 0.083% NEBU ALBUTEROL SULFATE [id number] Aurelia Celaya MD Problems Active Problems Problem Classification Problem Date Documented Date Episodic/Chronic Chronic obstructive pulmonary disease and bronchiectasis (2 sources) Chronic obstructive lung disease; Translations: [Chronic obstructive pulmonary disease, unspecified] Onset: 05-22-2017 05-22-2017 Chronic Congestive heart failure; nonhypertensive (2 sources) Heart failure; Translations: [Heart failure, unspecified] Onset: 05-22-2017 05-22-2017 Chronic Developmental disorders (2 sources) Moderate mental retardation (I.Q. 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); Translations: [Moderate intellectual disabilities] Onset: 05-22-2017 05-22-2017 Chronic Diabetes mellitus without complication (2 sources) Type 2 diabetes mellitus without complication; Translations: [Type 2 diabetes mellitus without complications] Onset: 05-22-2017 05-22-2017 Chronic Esophageal disorders (2 sources) Gastroesophageal reflux disease; Translations: [Gastro-esophageal reflux disease without esophagitis] Onset: 05-22-2017 05-22-2017 Chronic Essential hypertension (2 sources) Essential hypertension; Translations: [Essential (primary) hypertension] Onset: 05-22-2017 05-22-2017 Chronic Gastroduodenal ulcer (except hemorrhage) (2 sources) Chronic peptic ulcer; Translations: [Chronic peptic ulcer, site unspecified, without hemorrhage or perforation] Onset: 05-22-2017 05-22-2017 Chronic Hyperplasia of prostate (2 sources) Benign localized hyperplasia of prostate; Translations: [Benign prostatic hyperplasia without lower urinary tract symptoms] Onset: 05-22-2017 05-22-2017 Chronic Hypertension with complications and secondary hypertension (2 sources) Hypertensive heart failure; Translations: [Hypertensive heart disease with heart failure] Onset: 05-22-2017 05-22-2017 Chronic Other nutritional; endocrine; and metabolic disorders (3 sources) Hypocalcemia; Translations: [Morbid obesity] Onset: 05-22-2017 05-22-2017 Chronic Other nutritional; endocrine; and metabolic disorders (1 source) Morbid obesity; Translations: [Morbid (severe) obesity due to excess calories] Onset: 05-22-2017 05-22-2017 Chronic Pancreatic disorders (not diabetes) (2 sources) Acute pancreatitis without necrosis or infection, unspecified; Translations: [Acute pancreatitis without necrosis or infection, unspecified] Onset: 05-22-2017 05-22-2017 Peripheral and visceral atherosclerosis (2 sources) Peripheral vascular disease; Translations: [Peripheral vascular disease, unspecified] Onset: 05-22-2017 05-22-2017 Chronic Schizophrenia and other psychotic disorders (2 sources) Schizophrenia; Translations: [Schizophrenia, unspecified] Onset: 05-22-2017 05-22-2017 Chronic Substance-related disorders (2 sources) Nicotine dependence; Translations: [Nicotine dependence, unspecified, uncomplicated] Onset: 05-22-2017 05-22-2017 Chronic Thyroid disorders (2 sources) Hypothyroidism; Translations: [Hypothyroidism, unspecified] Onset: 05-22-2017 05-22-2017 Chronic Past or Other Problems Problem Classification Problem Date Documented Da te Episodic/Chronic Abdominal pain (4 sources) Generalized abdominal pain; Translations: [Lower abdominal pain] Onset: 05-22-2017 05-22-2017 Episodic Anal and rectal conditions (2 sources) Anal and rectal polyp; Translations: [Rectal polyp] Onset: 05-22-2017 05-22-2017 Episodic Fluid and electrolyte disorders (2 sources) Hypo-osmolality and or hyponatremia; Translations: [Hypo-osmolality and hyponatremia] Onset: 05-22-2017 05-22-2017 Episodic Gastrointestinal hemorrhage (2 sources) Hemorrhage of rectum and anus; Translations: [Hemorrhage of anus and rectum] Onset: 05-22-2017 05-22-2017 Episodic Hemorrhoids (2 sources) Hemorrhoids; Translations: [Unspecified hemorrhoids] Onset: 05-22-2017 05-22-2017 Episodic Inflammation; infection of eye (except that caused by tuberculosis or sexually transmitteddisease) (2 sources) External hordeolum; Translations: [Hordeolum externum unspecified eye, unspecified eyelid] Onset: 05-22-2017 05-22-2017 Episodic Malaise and fatigue (2 sources) Asthenia; Translations: [Weakness] Onset: 05-22-2017 05-22-2017 Episodic Nonspecific chest pain (2 sources) Chest pain; Translations: [Chest pain, unspecified] Onset: 05-22-2017 05-22-2017 Episodic Other and unspecified benign neoplasm (2 sources) Benign neoplasm of descending colon; Translations: [Benign neoplasm of descending colon] Onset: 05-22-2017 05-22-2017 Episodic Other connective tissue disease (2 sources) Muscle atrophy; Translations: [Muscle wasting and atrophy, not elsewhere classified, unspecified site] Onset: 05-22-2017 05-22-2017 Episodic Other eye disorders (2 sources) Tear film insufficiency; Translations: [Dry eye syndrome of unspecified lacrimal gland] Onset: 05-22-2017 05-22-2017 Episodic Other nervous system disorders (2 sources) H/O: Lynn's palsy; Translations: [Personal history of other diseases of the nervous system and sense organs] Onset: 05-22-2017 05-22-2017 Episodic Residual codes; unclassified (2 sources) Altered mental status; Translations: [Altered mental status, unspecified] Onset: 05-22-2017 05-22-2017 Episodic Results Test Name Value Interpretation Reference Range Facil ity Vital Signs Date Time Vital Sign Value Performing Clinician Facility 05-22-2017 13: BMI (Body Mass Index) 41.19 kg/m2 Aurelia Celaya MD [facility] [employer] Work Phone: 05-22-2017 13:22-0400 Body Temperature 98.2 [degF] Aurelia Celaya MD [facility] Work Phone: 05-22-2017 13:22-0400 BP Diastolic 72 mm[Hg] Aurelia Celaya MD [facility] Work Phone: 05-22-2017 13:22-0400 BP Systolic 125 mm[Hg] Aurelia Celaya MD [facility] Work Phone: 05-22-2017 13:22-0400 Height 162.56 cm Aurelia Celaya MD [facility] Work Phone: 05-22-2017 13:22-0400 Pulse (Heart Rate) 89 /min Aurelia Celaya MD [facility] Work Phone: 05-22-2017 13:22-0400 Respiratory Rate 18 /min Aurelia Celaya MD [facility] Work Phone: 05-22-2017 13:22-0400 Weight 108.86 kg Aurelia Celaya MD [facility] Work Phone: Encounters Encounter Date Encounter Type Care Provider Facility Start: 05-23-2017 [facility] Date Care Activity Detail Author Start: 05-22-2017 End: 05-26-2017 Follow Up Appt Other Follow Up Appt Other [facility] Work Phone: Payers Date Payer Category Payer Policy ID Medicaid Summary Purpose Family History No Family History Records Found Advance Directives No Advanced Directives Records Found Additional Source Comments (unrecognized sect ion and content) No Status Records Found INFORMATION SOURCE (unrecogn ized section and content) FOR RECORDS PERTAINING TO PATIENTS WHO ARE OR HAVE BEEN ENROLLED IN A CHEMICAL DEPENDENCY/SUBSTANCEABUSE PROGRAM, SOME INFORMATION MAY BE OMITTED. This clinical summary was aggregated from multiple sources. Caution should be exercised in using it in the provision of clinical care. This summary normalizes information from multiple sources, and as a consequence, information in this document may materially change the coding, format and clinical context of patient data. In addition, data may be omitted in some cases. CLINICAL DECISIONS SHOULD BE BASED ON THE PRIMARY CLINICAL RECORDS. [facility] provides no warranty or guarantee of the accuracy or completeness of information in this document.
[2023-12-11] VITALS (13 sets, daily range): BP systolic 115–140; BP diastolic 62–70; PULSE 67–89; RESP 16–18; TEMP 36.4–37; O2SAT 89–96; BMI 40.5
[2023-12-11] MEDS: MELATONIN 3 MG TABLET PO (00:38)
[2023-12-11 00:51] LABS: Bedside Glucose 148 mg/dL (74-106)
[2023-12-11 01:18] LABS: Bacteria 0 SEEN /hpf (None Seen); Mucous, Urine 0 SEEN /hpf (<or=2+); Red Blood Cells-Urine 0 SEEN /hpf (0-5); Squamous Epithelial Cells - UA 0 SEEN /hpf (0-5); White Blood Cells 0 SEEN /hpf (0-5)
[2023-12-11 01:22] LABS: Color, Urine Yellow (Yellow); Glucose, Dipstick Normal (Normal); Ketone-Dipstick Negative (Negative); Leukocyte Esterase-Dipstick Negative /ul (Negative); Nitrite-Dipstick Negative (Negative); Occult Blood-Urine 25 /ul (Negative); Protein-Dipstick 30 mg/dl (Negative); Specific Gravity, Urine 1.005 (1.002-1.030); Urine Bilirubin Dipstick Negative (Negative); Urine Clarity Clear (Clear); Urine Urobilinogen Normal (Normal)
[2023-12-11] MEDS: Ipratropium/Albuterol Sulfate 3 ML AMPUL.NEB INHALATION ×6 (03:25→23:04)
[2023-12-11 07:11] LABS: Bedside Glucose 135 mg/dL (74-106)
[2023-12-11 08:16] LABS: Absolute Lymphocyte Count 1.41 X10^3/uL (0.83-4.51); Absolute Neutrophil Count 10.7 X10^3/uL (2.0-7.7); Basophil# 0.03 X10^3/uL; Basophil% 0.2 % (0-1); Hematocrit 32.4 % (40-54); Hemoglobin 10.5 g/dL (13.0-16.5); Lymphocyte # 1.41 X10^3/ul (0.83-4.51); Lymphocyte % 11.3 % (19-41); Mean Corp Hgb Conc 32.4 g/dL (32-36); Mean Corpuscular Hgb 29.3 pg (27.0-32.0); Mean Corpuscular Volume 90.5 fL (80-94); Mean Platelet Vol. 9.8 fl (6.2-12.0); Monocyte# 0.33 X10^3/uL; Monocyte% 2.6 % (0-10); NRBC Flagged by Analyzer 0 % (0-5); Neutrophil # 10.66 X10^3/uL (2.7-7.7); Neutrophil % 85.3 % (47-70); Platelet Count 241 K/mm3 (150-450); RBC Distribution Width CV 13.3 % (11.6-14.6); RBC Distribution Width SD 44.3 fl (35.1-43.9); Red Blood Count 3.58 M/mm3 (4.6-6.2); White Blood Count 12.5 K/mm3 (4.4-11.0)
[2023-12-11] MEDS: Enoxaparin 40 MG/0.4 ML Syringe SC ×2 (09:27→23:10)
[2023-12-11] MEDS: Acetaminophen 325 MG Tablet 650 MG PO (09:27)
[2023-12-11] MEDS: Ceftriaxone 2 GM in 0.9% Normal Saline (50mL MB+) 50 ML IV (09:28)
[2023-12-11] MEDS: guaiFENesin 1,200 MG Tablet 1200 MG PO ×2 (09:31→23:10)
[2023-12-11] MEDS: Azithromycin 500 MG in Dextrose 5%-Water (250mL Bag) 250 ML 250 MG IV (09:36)
[2023-12-11 09:59] LABS: ALB/GLOB Ratio 0.6 RATIO (0.9-2.4); AST(SGOT) 27 U/L (15-37); Alanine Aminotransfer ALT/SGPT 28 U/L (16-61); Albumin, Serum 2.9 g/dL (3.2-5.0); Alkaline Phosphatase 85 U/L (45-117); Anion Gap 10 (5-15); BUN 17 mg/dL (7-18); Calcium,Total 8.8 mg/dL (8.5-10.1); Chloride 103 mmol/L (98-107); EST Glomerular Filtration Rate 79 mL/min (>60); Est Glom Filt Rate - Afr Amer 96 mL/min (>60); Estimated Creatinine Clearance 71.31 ml/min; Globulin 4.7 g/dL (2.2-4.2); Glucose 132 mg/dL (74-106); Magnesium 1.7 mg/dL (1.6-2.6); Phosphorus 2.5 mg/dL (2.5-4.9); Potassium 4.1 mmol/L (3.5-5.1); Protein, Total 7.6 g/dL (6.4-8.2); Sodium Level 136 mmol/L (136-145); Thyroid Stim Hormone (TSH) 0.65 uIU/mL (0.358-3.74)
--- NOTE | 2023-12-11 11:33 | CASEMGMT ---
Discharge Planning Updates faxed to [facility] CHARLES Gentile and fax confirmation received. Mayela Chua, Discharge Planning Asst.
[2023-12-11] MEDS: Insulin Lispro 100 UNIT/ML INSULN.PEN SC ×2 (12:03→16:27)
[2023-12-11 12:26] LABS: Bedside Glucose 222 mg/dL (74-106)
--- NOTE | 2023-12-11 12:41 | CASEMGMT ---
Social Work SW met with pt and introduced self and role of SW. Pt is admitted from [facility]. Pt confirms plans to return to [facility] when able. Phone call to pt's sister/HCPOA Gonzales who confirms plan to return to [facility]. DC appeals assistant notified to send updates to facility. Plan: Return to [facility], when medically ready EDINSON Nathan
--- NOTE | 2023-12-11 12:45 | CASEMGMT ---
Social Work Living will and health care power of assistant district attorney naming his sister Gonzales Cuevas was printed from the Echart and placed on pt chart for scanning into the EMR. EDINSON Nathan
--- NOTE | 2023-12-11 13:46 | PN.HOSP_ITS ---
Reason for Visit Reason for Visit: Shortness of breath Subjective Subjective Patient indicates he is feeling much better. Has been weaned to room air. Did an ambulatory pulse ox and he is 94 on room air at rest but drops to 89 with exertion. I would like to see him a little bit better with exertion hopefully next 24 hours with ongoing IV steroids and aggressive pulmonary toilet, etc. we can get him back home tomorrow as long as he continues to improve. Objective Data Objective Data Vital Signs: Vital Signs Temp Pulse Resp BP Pulse Ox O2 Del Method 97.5 F L 82 18 140/70 H 94 Room Air 12/11/23 08:57 12/11/23 11:10 12/11/23 11:10 12/11/23 08:57 12/11/23 12:15 12/11/23 11:10 Oxygen Delivery Method Room Air Weight: 97.386 kg Body Mass Index (BMI) 40.5 Intake & Output: Intake and Output for Last 24 Hours 12/09/23 12/10/23 12/11/23 23:59 23:59 23:59 Intake Total 1905 / 1905 2550 / 2550 Output Total 300 / 300 1100 / 1100 Balance 1605 / 1605 1450 / 1450 Lab / Micro Data 12/11/23 06:53 12/11/23 06:53 Labs: Laboratory Results - last 24 hr 12/10/23 13:35: Lactic Acid 2.0 12/10/23 15:57: POC Glucose 107 H 12/10/23 20:44: POC Glucose 148 H 12/11/23 01:00: Urine Color Yellow, Urine Clarity Clear, Urine pH 7.0, Ur Specific [place] 1.005, Urine Protein 30 H, Urine Glucose (UA) Normal, Urine Ketones Negative, Urine Occult Blood 25 H, Urine Nitrite Negative, Urine Bilirubin Negative, Urine Urobilinogen Normal, Ur Leukocyte Esterase Negative, Urine RBC 0 SEEN, Urine WBC 0 SEEN, Ur Squamous Epith Cells 0 SEEN, Urine Bacteria 0 SEEN, Urine Mucus 0 SEEN 12/11/23 05:37: POC Glucose 135 H 12/11/23 06:53: WBC 12.5 H, RBC 3.58 L, Hgb 10.5 L, Hct 32.4 L, MCV 90.5, MCH 29.3, MCHC 32.4, RDW Std Deviation 44.3 H, RDW Coeff of Reid 13.3, Plt Count 241, MPV 9.8, Immature Gran % (Auto) 0.600, Neut % (Auto) 85.3 H, Lymph % (Auto) 11.3 L, Grand % (Auto) 2.6, Eos % (Auto) 0.0, Baso % (Auto) 0.2, Absolute Neuts (auto) 10.7 H, Absolute Lymphs (auto) 1.41, Nucleated RBC % 0, Sodium 136, Potassium 4.1, Chloride 103, Carbon Dioxide 23.0, Anion Gap 10, BUN 17, Creatinine 1.00, Estim Creat Clear Calc 71.31, Est GFR (MDRD) Af Amer 96, Est GFR (MDRD) Non-Af 79, BUN/Creatinine Ratio 17.0, Glucose 132 H, Calcium 8.8, Phosphorus 2.5, Magnesium 1.7, Total Bilirubin 0.60, AST 27, ALT 28, Alkaline Phosphatase 85, Total Protein 7.6, Albumin 2.9 L, Globulin 4.7 H, Albumin/Globulin Ratio 0.6 L, TSH 0.65 12/11/23 12:00: POC Glucose 222 H Micro: Microbiology 12/11/23 09:53 Stool Stool Occult Blood (JUSTINE) - Final 12/11/23 06:15 Stool Enteric Bacteriology - Final 12/11/23 06:15 Stool Clostridioides difficile (PCR) - Final 12/10/23 16:15 Mucosa - Nasopharyngeal Respiratory Panel (PCR) - Final Influenza A (Subtype H3) 12/10/23 09:15 Mucosa - Nose SARS-CoV-2, Influenza & RSV (PCR) - Final Influenzae A Radiography Diagnostic Testing: Radiology Impression Chest X-Ray 12/10/23 09:15 IMPRESSION: Patchy left perihilar and left lower lobe infiltrate. Electronically Signed: Cleve Clarke MD at 10:15 EDT , Rhythm Strip Rhythm Strip: Sinus Rhythm Rate: 90 Ectopy: None Physical Exam Const alert, no apparent distress and well nourished; Negative for average body habitus or healthy appearing Constitutional Narrative: Upper middle-aged, male, sitting up in a chair at the bedside, morbidly obese, appears comfortable and nontoxic, has been weaned to room air at rest General Appearance: cooperative HEENT normocephalic, head/scalp atraumatic, hearing grossly normal bilaterally and moist oral mucous membranes HEENT Narrative: Mallampati is 3-4, no thrush Resp normal respiratory effort, no retractions, no use of accessory muscles and No clear to auscultation bilaterally Resp Narrative: Few scattered wheezes but much improved, tachypnea has resolved Auscultation: wheezes; Negative for rales or rhonchi Cardio regular rate, regular rhythm, S1 normal heart sound, S2 normal heart sound, no murmurs, no rub, no gallops and no clicks GI normal to inspection, nondistended, normoactive bowel sounds, soft to palpation and non-tender Extremity no clubbing, cyanosis or edema Extremity Narrative: Pedal pulses are 2+, feet are considerably dry and have extensive callus formation Neuro No CN's II-XII intact bilaterally, moves all extremities and no focal motor deficits Neuro Narrative: Follows commands well but speech is difficult to understand, chronic facial droop on the right, no significant weakness noted Speech: Negative for speech normal Psych affect normal Psych Narrative: Very pleasant, interacts appropriately Assessment & Plan Assessment/Plan (1) Pneumonia: (2) Influenza A: (3) Anemia: (4) Hypoxia: (5) Acute dehydration: (6) Hyponatremia: (7) Elevated serum creatinine: (8) COPD with acute exacerbation: PLAN: Plan Acute hypoxic respiratory failure secondary to viral influenza A pneumonia plus minus bacterial superinfection/acute exacerbation of COPD -Patient was found to be hypoxic on room air at his extended care facility with an oxygen saturation 79% and improved to 96 on 2 L nasal cannula -Patient has been weaned to room air at rest and amatory pulse ox was 89% -Influenza A is positive -Patient was started on Tamiflu as an outpatient will continue -Check respiratory viral panel -Urine antigens for strep pneumo and Legionella were ordered yesterday but not yet collected-discussed with nursing -Will cover with ceftriaxone and azithromycin for now -Continue steroids 40 every 8 -Aggressive pulmonary toilet -Incentive spirometry and Acapella if patient can participate -Sputum culture was ordered and pending Hyponatremia -Resolved -Continue home sodium chloride tablets Anemia -Appears to be chronic and currently stable -Iron studies are consistent with anemia of chronic disease -No acute workup needed any further at this time Elevated serum creatinine -Resolved COPD -Hold home inhalers -Pulmonary toilet as noted above 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 DM-2 -Hold home metformin -Fasting blood sugar this morning is 132 and stable -SSI -Accu-Cheks as ordered Hyperlipidemia -Continue home simvastatin BPH with obstruction -Continue home Flomax Allergies -Continue home Singulair Hypertension -continue home metoprolol -Continue lisinopril -Continue home Lasix Hypothyroidism -TSH within normal limits -Continue home levothyroxine Schizophrenia -Continue home Clozaril -Continue home Tegretol -Continue home Cogentin -Continue home Ativan -Continue home olanzapine DVT prophylaxis -Subcu Lovenox twice daily due to BMI greater than 40 CODE STATUS -DNR CCA with no intubation per records from ECF Disposition: -Probable discharge tomorrow -He was able to be on room air at rest but did desat to 89% with exertion. I would like to see him, but little bit with exertion prior to sending him back to avoid readmission Charges/Coding Visit Charges Inpatient E&M: 97157 Subs Hosp L2
[2023-12-11] MEDS: LORazepam 1 MG Tablet PO ×2 (14:38→23:10)
[2023-12-11] MEDS: carBAMazepine 200 MG Tablet PO ×3 (14:40→23:10)
[2023-12-11 16:53] LABS: Bedside Glucose 163 mg/dL (74-106)
[2023-12-11] MEDS: cloZAPine 100 MG TABLET 500 MG PO (23:09)
[2023-12-11] MEDS: cloZAPine 100 MG TABLET PO (23:09)
[2023-12-11] MEDS: Sodium Chloride 1 GM Tablet PO (23:09)
[2023-12-11] MEDS: Atorvastatin Calcium 20 MG Tablet PO (23:09)
[2023-12-11] MEDS: OLANZapine 10 MG Tablet 15 MG PO (23:10)
[2023-12-11] MEDS: Calcium (Elemental) 500 MG Tablet PO (23:10)
[2023-12-11] MEDS: Famotidine 20 MG Tablet PO (23:26)
[2023-12-12] VITALS (11 sets, daily range): BP systolic 127–141; BP diastolic 73–82; PULSE 68–93; RESP 16–21; TEMP 36.1–36.6; O2SAT 92–98; BMI 38.7
[2023-12-12 06:46] LABS: Hematocrit 31.4 % (40-54); Hemoglobin 10.5 g/dL (13.0-16.5); Mean Corp Hgb Conc 33.4 g/dL (32-36); Mean Corpuscular Hgb 30.5 pg (27.0-32.0); Mean Corpuscular Volume 91.3 fL (80-94); Mean Platelet Vol. 9.2 fl (6.2-12.0); Platelet Count 274 K/mm3 (150-450); RBC Distribution Width CV 13.8 % (11.6-14.6); RBC Distribution Width SD 46.3 fl (35.1-43.9); Red Blood Count 3.44 M/mm3 (4.6-6.2); White Blood Count 12.1 K/mm3 (4.4-11.0)
[2023-12-12] MEDS: LORazepam 1 MG Tablet PO (06:48)
[2023-12-12] MEDS: Levothyroxine 75 MCG Tablet PO (06:48)
[2023-12-12] MEDS: Ipratropium/Albuterol Sulfate 3 ML AMPUL.NEB INHALATION ×4 (07:10→19:30)
[2023-12-12 07:18] LABS: Bedside Glucose 147 mg/dL (74-106)
[2023-12-12 07:33] LABS: Anion Gap 6 (5-15); BUN 20 mg/dL (7-18); BUN/Creat Ratio 22.4 RATIO (10-20); Calcium,Total 8.9 mg/dL (8.5-10.1); Chloride 110 mmol/L (98-107); Creatinine, Serum 0.89 mg/dL (0.70-1.30); EST Glomerular Filtration Rate 90 mL/min (>60); Est Glom Filt Rate - Afr Amer 109 mL/min (>60); Estimated Creatinine Clearance 78.13 ml/min; Glucose 175 mg/dL (74-106); Potassium 4.3 mmol/L (3.5-5.1); Sodium Level 139 mmol/L (136-145)
[2023-12-12] MEDS: 0.9% Saline Lock 10 ML Syringe IV (08:42)
[2023-12-12] MEDS: Azithromycin 500 MG in Dextrose 5%-Water (250mL Bag) 250 ML 250 MG IV (08:42)
--- NOTE | 2023-12-12 09:44 | NURSING ---
Lab is aware of stat Ammonia level and CPS is aware of stat ABG's
[2023-12-12] MEDS: 0.9% Normal Saline (250mL Bag) 250 ML 15 ML IV (09:45)
[2023-12-12 10:17] LABS: Allen Test Positive; Base Excess -3 mmol/L (-2 to +2); Bicarbonate 21.8 mmol/L (22-26); Blood Gas Specimen Type ART; Mode Not entered; O2 Delivery Device Not entered; PO2 78 mmHG (75-100); SITE L Radial; SO2 95 % (95-99); Total Carbon Dioxide 23 mmol/L; pH 7.39 (7.35-7.45)
[2023-12-12] MEDS: Ceftriaxone 2 GM in 0.9% Normal Saline (50mL MB+) 50 ML IV (10:38)
[2023-12-12] MEDS: Enoxaparin 40 MG/0.4 ML Syringe SC ×2 (10:41→21:18)
[2023-12-12 10:53] LABS: Bedside Glucose 236 mg/dL (74-106)
[2023-12-12] MEDS: Insulin Lispro 100 UNIT/ML INSULN.PEN SC ×2 (11:54→17:48)
--- NOTE | 2023-12-12 12:29 | CT_ITS ---
STUDY: CT BRAIN WITHOUT CONTRAST REASON FOR EXAM: Male, 68 years old. Altered MS RADIATION DOSAGE (If Supplied By Facility): CTDIvol = ( 44.99 ) mGy, DLP = ( 812.98 ) mGycm TECHNIQUE: Transaxial CT imaging of the brain was performed without administration of intravenous contrast material. Individualized dose optimization techniques were used for this CT. COMPARISON: Comparison is made with prior study dated March 21, 2018. FINDINGS: Normal soft tissue structures. Normal calvarium. There is mild cerebral atrophy with widening of the extra-axial spaces and ventricular dilatation. There are areas of decreased attenuation within the white matter tracts of the supratentorial brain, consistent with microvascular disease changes. 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 Normal brainstem. Normal cerebellum. There is no intracranial hemorrhage. There are no findings of an acute ischemic infarction. Atherosclerotic calcification of the vertebral arteries and cavernous portions of the internal carotid arteries bilaterally. Pansinusitis. CT/Brain/Head without Contrast IMPRESSION: Chronic involutional changes of the brain. Electronically Signed: Cleve Clarke MD at 13:31 EDT ,
[2023-12-12] MEDS: carBAMazepine 200 MG Tablet PO ×3 (14:59→21:20)
--- NOTE | 2023-12-12 15:12 | PCM.PN.HOSP ---
Reason for Visit Reason for Visit: Shortness of breath Subjective Subjective Patient up in a chair and very sleepy today. Per nursing he was fine per night and early this morning but after he received his scheduled Ativan which is a chronic medication for him this morning he became more somnolent and sleepy. Metabolic workup has not been unremarkable and imaging was normal. He remains on room air. Objective Data Objective Data Vital Signs: Vital Signs Temp Pulse Resp BP Pulse Ox O2 Del Method 96.9 F L 93 18 133/82 H 98 Room Air 12/12/23 15:01 12/12/23 15:01 12/12/23 15:01 12/12/23 15:01 12/12/23 15:01 12/12/23 15:01 Oxygen Delivery Method Room Air Weight: 93 kg Body Mass Index (BMI) 38.7 Intake & Output: Intake and Output for Last 24 Hours 12/10/23 12/11/23 12/12/23 23:59 23:59 23:59 Intake Total 1905 / 1905 2705 / 2705 405 / 405 Output Total 300 / 300 1100 / 1100 Balance 1605 / 1605 1605 / 1605 405 / 405 Lab / Micro Data 12/12/23 06:35 12/12/23 06:35 Labs: Laboratory Results - last 24 hr 12/11/23 16:24: POC Glucose 163 H 12/12/23 06:35: WBC 12.1 H, RBC 3.44 L, Hgb 10.5 L, Hct 31.4 L, MCV 91.3, MCH 30.5, MCHC 33.4, RDW Std Deviation 46.3 H, RDW Coeff of Reid 13.8, Plt Count 274, MPV 9.2, Sodium 139, Potassium 4.3, Chloride 110 H, Carbon Dioxide 23.0, Anion Gap 6, BUN 20 H, Creatinine 0.89, Estim Creat Clear Calc 78.13, Est GFR (MDRD) Af Amer 109, Est GFR (MDRD) Non-Af 90, BUN/Creatinine Ratio 22.4 H, Glucose 175 H, Calcium 8.9 12/12/23 06:47: POC Glucose 147 H 12/12/23 10:27: Ammonia 25.0 12/12/23 10:33: POC Glucose 236 H Micro: Microbiology 12/11/23 01:00 Urine, Clean Catch Urine Culture - Preliminary Culture exhibits no growth. 12/10/23 09:16 Blood Culture (Wb) - Arm Right Blood Culture - Preliminary No growth in 48 hours. 12/10/23 09:39 Blood Culture (Wb) - Right Wrist Blood Culture - Preliminary No growth in 48 hours. 12/11/23 14:45 Urine, Clean Catch Streptococcus pneumoniae Antigen (M - Final 12/11/23 14:45 Urine, Clean Catch Legionella Antigen - Final 12/11/23 09:53 Stool Stool Occult Blood (JUSTINE) - Final 12/11/23 06:15 Stool Enteric Bacteriology - Final 12/11/23 06:15 Stool Clostridioides difficile (PCR) - Final 12/10/23 16:15 Mucosa - Nasopharyngeal Respiratory Panel (PCR) - Final Influenza A (Subtype H3) 12/10/23 09:15 Mucosa - Nose SARS-CoV-2, Influenza & RSV (PCR) - Final Influenzae A ABG Data ABG results: ABG 12/12/23 10:14 Specimen Type ART Sample Site L Radial pH 7.39 Bicarbonate Actual 21.8 L Total CO2 23 Base Excess -3 L O2 Saturation 95 O2 % 21.0 ABG pCO2 36.0 ABG pO2 78 Jose Test Positive O2 Delivery Device Not entered Vent Mode Not entered Radiography Diagnostic Testing: Radiology Impression Brain CT 12/12/23 12:29 IMPRESSION: Chronic involutional changes of the brain. Electronically Signed: Cleve Clarke MD at 13:31 EDT , Rhythm Strip Rhythm Strip: Sinus Rhythm Rate: 90 Ectopy: None Physical Exam Const no apparent distress and well nourished; Negative for average body habitus or healthy appearing Constitutional Narrative: Upper middle-aged, male, sitting up in a chair at the bedside, morbidly obese, appears comfortable and nontoxic, but he is very sleepy and difficult to arouse, he does move all 4 extremities symmetrically to sternal rub and opens his eyes but drifts back off to sleep very quickly Orientation / Consciousness: lethargic HEENT normocephalic, head/scalp atraumatic and moist oral mucous membranes HEENT Narrative: Large tongue with chronically slurred speech Resp normal respiratory effort, no retractions, no use of accessory muscles and No clear to auscultation bilaterally Resp Narrative: Few scattered end expiratory wheezes but overall much improved Auscultation: wheezes; Negative for rales or rhonchi Cardio regular rate, regular rhythm, S1 normal heart sound, S2 normal heart sound, no murmurs, no rub, no gallops and no clicks GI normal to inspection, nondistended, normoactive bowel sounds, soft to palpation and non-tender Neuro No CN's II-XII intact bilaterally, moves all extremities and no focal motor deficits Neuro Narrative: Patient very sleepy Sensorium / Orientation: awake, alert and oriented to person Speech: Negative for speech normal Psych affect normal Psych Narrative: Very pleasant, interacts appropriately Assessment & Plan Assessment/Plan (1) Pneumonia: (2) Influenza A: (3) Anemia: (4) Hypoxia: (5) Acute dehydration: (6) Hyponatremia: (7) Elevated serum creatinine: (8) COPD with acute exacerbation: PLAN: Plan Acute hypoxic respiratory failure secondary to viral influenza A pneumonia plus minus bacterial superinfection/acute exacerbation of COPD -Patient was found to be hypoxic on room air at his extended care facility with an oxygen saturation 79% and improved to 96 on 2 L nasal cannula -Patient is now on room air -Influenza A is positive -Patient was started on Tamiflu as an outpatient will continue -Strep pneumo and Legionella antigens are negative but chest x-ray showed left lower lobe infiltrate -Discontinue azithromycin and would continue antibiotics for total of 7 days -Day 3 of 7 with ceftriaxone -Continue steroids 40 every 8 -Aggressive pulmonary toilet -Incentive spirometry and Acapella if patient can participate -Sputum culture was ordered and pending Toxic/metabolic encephalopathy -Suspect medication induced with Ativan -He was on his baseline dose of 1 mg 3 times daily from his med rec from the facility -Decreased to 0.5 mg 3 times daily as needed for agitation -Ammonia level is normal -ABG is unremarkable -CT head is unremarkable -As the days gone on patient has become more alert but still fairly sleepy which precludes discharge Hyponatremia -Resolved -Continue home sodium chloride tablets Anemia -Appears to be chronic and currently stable -Iron studies are consistent with anemia of chronic disease -No acute workup needed any further at this time Elevated serum creatinine -Resolved COPD -Hold home inhalers -Pulmonary toilet as noted above 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 DM-2 -Hold home metformin -Fasting blood sugar this morning is 132 and stable -SSI -Accu-Cheks as ordered Hyperlipidemia -Continue home simvastatin BPH with obstruction -Continue home Flomax Allergies -Continue home Singulair Hypertension -continue home metoprolol -Continue lisinopril -Continue home Lasix Hypothyroidism -TSH within normal limits -Continue home levothyroxine Schizophrenia -Continue home Clozaril -Continue home Tegretol -Continue home Cogentin -Hold home scheduled Ativan due to somnolence -Continue home olanzapine DVT prophylaxis -Subcu Lovenox twice daily due to BMI greater than 40 CODE STATUS -DNR CCA with no intubation per records from ECF Disposition: -Patient sleepier than normal with Ativan dosing seems to be the contributing factor -Workup negative -Hopeful for resolution and discharge tomorrow Charges/Coding Visit Charges Inpatient E&M: 26222 Subs Hosp L2
--- NOTE | 2023-12-12 15:18 | CASEMGMT ---
Social Work Pt can return to [facility] nursing facility when medically ready. Green sheet on pt's chart to facilitate weekend discharge. EDINSON Nathan
[2023-12-12 18:08] LABS: Bedside Glucose 160 mg/dL (74-106)
[2023-12-12] MEDS: guaiFENesin 1,200 MG Tablet 1200 MG PO (21:18)
[2023-12-12] MEDS: Calcium (Elemental) 500 MG Tablet PO (21:21)
[2023-12-12] MEDS: cloZAPine 100 MG TABLET 500 MG PO (21:21)
[2023-12-12] MEDS: cloZAPine 100 MG TABLET PO (21:21)
[2023-12-12] MEDS: Famotidine 20 MG Tablet PO (21:21)
[2023-12-12] MEDS: Sodium Chloride 1 GM Tablet PO (21:21)
[2023-12-12] MEDS: Atorvastatin Calcium 20 MG Tablet PO (21:22)
[2023-12-12] MEDS: OLANZapine 10 MG Tablet 15 MG PO (21:24)
[2023-12-13] VITALS (7 sets, daily range): BP systolic 139–164; BP diastolic 67–93; PULSE 66–89; RESP 16–20; TEMP 36.7; O2SAT 95–99; BMI 40.4
[2023-12-13] MEDS: Acetaminophen 325 MG Tablet 650 MG PO (02:47)
[2023-12-13 03:44] LABS: Bacteria 0 SEEN /hpf (None Seen); Mucous, Urine 0 SEEN /hpf (<or=2+); Red Blood Cells-Urine 0 SEEN /hpf (0-5); Squamous Epithelial Cells - UA 0 SEEN /hpf (0-5); White Blood Cells 0 SEEN /hpf (0-5)
[2023-12-13 03:45] LABS: Color, Urine Yellow (Yellow); Glucose, Dipstick Normal (Normal); Ketone-Dipstick Negative (Negative); Leukocyte Esterase-Dipstick Negative /ul (Negative); Nitrite-Dipstick Negative (Negative); Occult Blood-Urine 10 /ul (Negative); Protein-Dipstick 30 mg/dl (Negative); Specific Gravity, Urine 1.005 (1.002-1.030); Urine Bilirubin Dipstick Negative (Negative); Urine Clarity Clear (Clear); Urine Urobilinogen Normal (Normal)
[2023-12-13] MEDS: Levothyroxine 75 MCG Tablet PO (05:10)
[2023-12-13 07:22] LABS: Bedside Glucose 137 mg/dL (74-106)
[2023-12-13 07:48] LABS: Absolute Neutrophil Count 10.6 X10^3/uL (2.0-7.7); Basophil# 0.04 X10^3/uL; Basophil% 0.3 % (0-1); Hematocrit 34.6 % (40-54); Hemoglobin 11.1 g/dL (13.0-16.5); Lymphocyte % 15.6 % (19-41); Mean Corp Hgb Conc 32.1 g/dL (32-36); Mean Corpuscular Hgb 29.4 pg (27.0-32.0); Mean Corpuscular Volume 91.5 fL (80-94); Mean Platelet Vol. 9.6 fl (6.2-12.0); Monocyte# 0.43 X10^3/uL; Monocyte% 3.2 % (0-10); NRBC Flagged by Analyzer 0 % (0-5); Neutrophil # 10.64 X10^3/uL (2.7-7.7); Neutrophil % 79.2 % (47-70); Platelet Count 330 K/mm3 (150-450); RBC Distribution Width CV 13.6 % (11.6-14.6); RBC Distribution Width SD 45.6 fl (35.1-43.9); Red Blood Count 3.78 M/mm3 (4.6-6.2); White Blood Count 13.4 K/mm3 (4.4-11.0)
[2023-12-13] MEDS: Ipratropium/Albuterol Sulfate 3 ML AMPUL.NEB INHALATION (07:55)
[2023-12-13 08:27] LABS: Anion Gap 6 (5-15); BUN 17 mg/dL (7-18); BUN/Creat Ratio 18.9 RATIO (10-20); Calcium,Total 9.3 mg/dL (8.5-10.1); Chloride 104 mmol/L (98-107); EST Glomerular Filtration Rate 89 mL/min (>60); Est Glom Filt Rate - Afr Amer 108 mL/min (>60); Estimated Creatinine Clearance 79.11 ml/min; Glucose 146 mg/dL (74-106); Potassium 4.5 mmol/L (3.5-5.1); Sodium Level 133 mmol/L (136-145)
[2023-12-13] MEDS: cloZAPine 100 MG TABLET PO (10:49)
[2023-12-13] MEDS: Benztropine Mesylate 0.5 MG TABLET PO (10:49)
[2023-12-13] MEDS: Tamsulosin HCl 0.4 MG Capsule 0.400000000000000022 MG PO (10:49)
[2023-12-13] MEDS: Furosemide 20 MG Tablet PO (10:50)
[2023-12-13] MEDS: 0.9% Saline Lock 10 ML Syringe IV (10:50)
[2023-12-13] MEDS: Ceftriaxone 2 GM in 0.9% Normal Saline (50mL MB+) 50 ML IV (10:50)
[2023-12-13] MEDS: Metoprolol(XL)Succ 25 MG Tablet 12.5 MG PO (10:53)
[2023-12-13] MEDS: Calcium (Elemental) 500 MG Tablet PO (10:54)
[2023-12-13] MEDS: carBAMazepine 200 MG Tablet PO ×2 (10:54→15:54)
[2023-12-13] MEDS: Famotidine 20 MG Tablet PO (10:54)
[2023-12-13] MEDS: Aspirin E.C. 81 MG Tablet PO (10:55)
[2023-12-13] MEDS: Montelukast 10 MG Tablet PO (10:56)
[2023-12-13] MEDS: Lisinopril 2.5 MG Tablet PO (10:56)
[2023-12-13] MEDS: guaiFENesin 1,200 MG Tablet 1200 MG PO (10:56)
[2023-12-13] MEDS: Enoxaparin 40 MG/0.4 ML Syringe SC (10:56)
[2023-12-13] MEDS: DULoxetine Hcl 20 MG Capsule PO (10:57)
[2023-12-13] MEDS: Sodium Chloride 1 GM Tablet PO (10:58)
[2023-12-13 12:32] LABS: Bedside Glucose 143 mg/dL (74-106)
--- NOTE | 2023-12-13 14:49 | PCM.TXEXTCAR ---
Diet Diet Order/Speech Therapy: 12/10/23 14:18 Diet: Consistent Carb - Calorie Controlled Food consistency:: Regular Liquid Consistency:: Regular/Thin Dietary Modifications:: Cardiac / Heart Healthy Diet Comments: cut up meats please; plastic silverware, no knife How many daily calories?: 1800 calorie Routine Orders/Code Status Code Status: DNRCC-A (No intubation) Therapies Weight Bearing: Full weight bearing Problem/Diagnosis (1) Pneumonia: Status: Acute Code(s): J18.9 - Pneumonia, unspecified organism Comment: Organism unknown (2) Influenza A: Status: Acute Code(s): J10.1 - Influenza due to other identified influenza virus with other respiratory manifestations (3) Anemia: Status: Chronic Code(s): D64.9 - Anemia, unspecified (4) Hypoxia: Status: Acute Code(s): R09.02 - Hypoxemia (5) Acute dehydration: Status: Acute Code(s): E86.0 - Dehydration (6) Hyponatremia: Status: Acute Code(s): E87.1 - Hypo-osmolality and hyponatremia (7) Elevated serum creatinine: Status: Acute Code(s): R79.89 - Other specified abnormal findings of blood chemistry (8) COPD with acute exacerbation: Status: Acute Code(s): J44.1 - Chronic obstructive pulmonary disease with (acute) exacerbation Allergies/Procedures Done in Hospital Allergies No Known Allergies Allergy (Verified 12/10/23 09:00) Procedures: None Type of Care/Length of Stay Estimated LOS: More Than 30 Days Type of Care Needed: Intermediate Rehab Potential: Fair Prognosis: Fair Additional Orders/Day of Discharge H&P will serve as current which was dated: 12/10/23 Day of Discharge: 12/13/23 Dietary and Speech Recommendations Dietitian Recommendations/Changes: continue cardiac, 1800 calorie controlled diet as ordered; will add cut up meats per SNF routine. ONS if PO intake at meals fails. Discharge Plan Admission Admit Date/Time: 12/10/23 10:50 Primary Reason for Your Visit: hypoxia, pneumonia. Influenza Attending Provider: Aleksandar Gomez Primary Care Provider: Jaylen Win Consulting Providers: Jenna Howell Discharge Orders/Prescriptions Prescriptions: New lorazepam 0.5 mg Tablet 0.5 mg PO Q8H PRN PRN (Reason: Agitation) Qty: 10 0RF cefdinir 300 mg capsule 300 mg PO BID Qty: 6 0RF Rx Instructions: Started on 12/14/2023, administered for 3 days then stop Continued metformin 500 MG tablet 1,000 mg PO BID Patient Comments: DIABETES fluticasone propion-salmeterol [Advair Diskus] 1 PUFF inhaler 1 puff inhalation BID Patient Comments: COPD clozapine [Clozaril] 100 MG tablet 100 mg PO BID acetaminophen 500 MG tablet 1,000 mg PO TID simvastatin 40 MG tablet 40 mg PO QHS levothyroxine 75 MCG tablet 75 mcg PO DAILY carbamazepine [Tegretol] 200 MG tablet 200 mg PO 4X/DAY Patient Comments: SEIZURES famotidine 20 MG tablet 20 mg PO BID metoprolol succinate 25 MG tablet 12.5 mg PO DAILY lisinopril 2.5 MG tablet 2.5 mg PO DAILY duloxetine 20 MG capsule 20 mg PO DAILY magnesium hydroxide 30 ML suspension 30 ml PO DAILY PRN (Reason: Constipation) albuterol sulfate [ProAir HFA] 1 PUFF inhaler 2 puff inhalation Q4H PRN PRN (Reason: Wheezing) calcium carbonate 500 MG tablet 500 mg PO BID tamsulosin 0.4 MG capsule 0.4 mg PO DAILY montelukast 10 MG tablet 10 mg PO DAILY albuterol sulfate 2.5 mg /3 mL (0.083 %) solution for nebulization 2.5 mg inhalation Q4H PRN (Reason: shortness of breath or wheezing) aspirin 81 mg tablet,delayed release (DR/EC) 81 mg PO DAILY benztropine 0.5 mg tablet 0.5 mg PO DAILY clozapine 100 mg tablet 500 mg PO QHS docusate sodium 100 mg tablet 100 mg PO DAILY bisacodyl [Dulcolax (bisacodyl)] 10 mg suppository 10 mg WA DAILY PRN (Reason: constipation) omega-3 fatty acids 1,000 mg capsule 1,000 mg PO BID folic acid 400 mcg tablet 400 mcg PO DAILY furosemide 20 mg tablet 20 mg PO DAILY ibuprofen [IBU] 400 mg tablet 400 mg PO Q6H PRN (Reason: pain) alum-mag hydroxide-simeth [Antacid] 200-200-20 mg/5 mL suspension 30 ml PO Q4H PRN (Reason: GI UPSET) nicotine (polacrilex) 2 mg lozenge 2 mg PO Q2H Rx Instructions: DO NOT EXCEED 8 LOZENGES PER DAY Nicotrol 10 mg cartridge 1 inh inhalation Q2H PRN (Reason: nicotine cravings) Rx Instructions: DO NOT EXCEED 8 CARTRIDGES PER DAY sodium chloride 1,000 mg tablet,soluble 1,000 mg PO BID cholecalciferol (vitamin D3) 1,250 mcg (50,000 unit) capsule 1,250 mcg PO TU olanzapine 15 mg tablet 15 mg PO QHS Discontinued lorazepam [Ativan] 1 mg tablet 1 mg PO TID DermaPhor 44 % ointment 1 ea topical PRN oseltamivir [Tamiflu] 75 mg capsule 75 mg PO BID Referrals / Follow Up: Jaylen Win MD [Primary Care Provider] - Disposition Disposition (needs filled in before D/C Order can be placed): NonSkilled NH/Intermed Care
--- NOTE | 2023-12-13 15:10 | PCM.DC.SUM ---
Providers Date of Admission: 12/10/23 Date of Discharge: 12/13/23 Primary Care Physician: Dr. Jaylen Win MD Reason For Visit: ACUTE HYPOXIA 2/2 INFLUENZA A Diagnosis Discharge Diagnosis (1) Pneumonia: Status: Acute Code(s): J18.9 - Pneumonia, unspecified organism (2) Influenza A: Status: Acute Code(s): J10.1 - Influenza due to other identified influenza virus with other respiratory manifestations (3) Anemia: Status: Chronic Code(s): D64.9 - Anemia, unspecified (4) Hypoxia: Status: Acute Code(s): R09.02 - Hypoxemia (5) Acute dehydration: Status: Acute Code(s): E86.0 - Dehydration (6) Hyponatremia: Status: Acute Code(s): E87.1 - Hypo-osmolality and hyponatremia (7) Elevated serum creatinine: Status: Acute Code(s): R79.89 - Other specified abnormal findings of blood chemistry (8) COPD with acute exacerbation: Status: Acute Code(s): J44.1 - Chronic obstructive pulmonary disease with (acute) exacerbation Plan 1. Acute community-acquired pneumonia-bacterial in nature, organism not identified #2 influenza A acute #3 hypoxia secondary to #1 #4 schizophrenia #5 type 2 diabetes #6 essential hypertension #7 hypothyroidism Acute hypoxic respiratory failure was ruled out Medications at Discharge Home Medications acetaminophen 500 mg tablet 1,000 mg PO TID 03/20/14 carbamazepine 200 mg tablet (Tegretol) 200 mg PO 4X/DAY 03/20/14 clozapine 100 mg tablet (Clozaril) 100 mg PO BID SCHIZOPHRENIA 03/20/14 duloxetine 20 mg capsule,delayed release 20 mg PO DAILY 03/20/14 famotidine 20 mg tablet 20 mg PO BID 03/20/14 fluticasone 250 mcg-salmeterol 50 mcg/dose blistr powdr for inhalation (Advair Diskus) 1 puff inhalation BID 03/20/14 levothyroxine 75 mcg tablet 75 mcg PO DAILY 03/20/14 lisinopril 2.5 mg tablet 2.5 mg PO DAILY 03/20/14 metformin 500 mg tablet 1,000 mg PO BID 03/20/14 metoprolol succinate 25 mg tablet,extended release 24 hr 12.5 mg PO DAILY 03/20/14 simvastatin 40 mg tablet 40 mg PO QHS 03/20/14 albuterol sulfate 90 mcg/actuation aerosol inhaler (ProAir HFA) 2 puff inhalation Q4H PRN PRN Wheezing 03/21/14 magnesium hydroxide 400 mg/5 mL oral suspension 30 ml PO DAILY PRN Constipation 03/21/14 calcium carbonate 500 mg calcium (1,250 mg) tablet 500 mg PO BID 03/21/18 montelukast 10 mg tablet 10 mg PO DAILY 03/21/18 tamsulosin 0.4 mg capsule 0.4 mg PO DAILY 03/21/18 albuterol sulfate 2.5 mg/3 mL (0.083 %) solution for nebulization 2.5 mg inhalation Q4H PRN shortness of breath or wheezing 12/10/23 aluminum-mag hydroxide-simethicone 200 mg-200 mg-20 mg/5 mL oral susp (Antacid) 30 ml PO Q4H PRN GI UPSET 12/10/23 aspirin 81 mg tablet,delayed release 81 mg PO DAILY 12/10/23 benztropine 0.5 mg tablet 0.5 mg PO DAILY 12/10/23 bisacodyl 10 mg rectal suppository (Dulcolax (bisacodyl)) 10 mg [place] DAILY PRN constipation 12/10/23 cholecalciferol (vitamin D3) 1,250 mcg (50,000 unit) capsule 1,250 mcg PO TU 12/10/23 clozapine 100 mg tablet 500 mg PO QHS SCHIZOPHRENIA 12/10/23 docusate sodium 100 mg tablet 100 mg PO DAILY CONSTIPATION 12/10/23 folic acid 400 mcg tablet 400 mcg PO DAILY 12/10/23 furosemide 20 mg tablet 20 mg PO DAILY 12/10/23 ibuprofen 400 mg tablet (IBU) 400 mg PO Q6H PRN pain 12/10/23 nicotine (polacrilex) 2 mg buccal lozenge 2 mg PO Q2H 12/10/23 nicotine 10 mg inhalation cartridge (Nicotrol) 1 inh inhalation Q2H PRN nicotine cravings 12/10/23 olanzapine 15 mg tablet 15 mg PO QHS 12/10/23 omega-3 fatty acids 1,000 mg capsule 1,000 mg PO BID CHOLESTEROL 12/10/23 sodium chloride 1,000 mg soluble tablet 1,000 mg PO BID 12/10/23 cefdinir 300 mg capsule 300 mg PO BID #6 caps 12/13/23 lorazepam 0.5 mg tablet 0.5 mg PO Q8H PRN PRN Agitation #10 tabs 12/13/23 Hospital Course Operations None Procedures None Summary of Care Provided Minutes Spent on Discharge: 32 Hospital Course: This 68-year-old white male was seen in the emergency room at [facility] with complaints of shortness of breath. He was a resident at a skilled nursing which specialized in behavioral problems, there was an outbreak of influenza at the facility. Patient's pulse ox at the nursing facility was 79% on room air and he was placed on 2 L and it improved to 96%. Patient was given a breathing treatment prior to arrival in the emergency room. Evaluation in the emergency room showed his oxygen saturation initially 92% on room air, CBC showed a normal white blood cell count, chemistry panel showed mild hyponatremia which appears to be chronic, BUN was elevated at 27, chest x-ray showed a patchy left perihilar and left lower lobe infiltrate. Rapid influenza test was positive for influenza A. Patient was admitted to [place] [id number], he was given IV antibiotics, IV corticosteroids, aerosol treatments, and pulse ox was monitored, his oxygen was able to be weaned off at the time of discharge. Patient was placed on Tamiflu during his hospital stay. On 12/13/2023, patient was seen and examined: On examination he appeared in good health and spirits. Vital signs as documented. Skin warm and dry and without overt rashes. Neck without JVD, neck was supple, trachea midline, thyroid was normal. Lungs clear bilaterally, normal air movement was noted. Heart exam notable for regular rhythm, normal sounds and absence of murmurs, rubs or gallops. Abdomen unremarkable and without evidence of organomegaly, masses, or abdominal aortic enlargement. Bowel sounds are present, abdomen is not distended. Extremities nonedematous, no cyanosis was noted, no clubbing was noted. Neuro: Cranial nerves II through XII are grossly intact, no focal motor deficits were noted, sensation to light touch and pinprick intact, motor exam 5/5 throughout. Psych: Patient is alert, he does not appear agitated Weight / BMI Weight Weight: 97.1 kg Body Mass Index (BMI) 40.4 ABG / Lab / Microbiology Data 12/13/23 06:51 12/13/23 06:51 Laboratory: Laboratory Results - last 24 hr 12/12/23 17:45: POC Glucose 160 H 12/13/23 03:30: Urine Color Yellow, Urine Clarity Clear, Urine pH 7.0, Ur Specific [place] 1.005, Urine Protein 30 H, Urine Glucose (UA) Normal, Urine Ketones Negative, Urine Occult Blood 10 H, Urine Nitrite Negative, Urine Bilirubin Negative, Urine Urobilinogen Normal, Ur Leukocyte Esterase Negative, Urine RBC 0 SEEN, Urine WBC 0 SEEN, Ur Squamous Epith Cells 0 SEEN, Urine Bacteria 0 SEEN, Urine Mucus 0 SEEN 12/13/23 06:51: WBC 13.4 H, RBC 3.78 L, Hgb 11.1 L, Hct 34.6 L, MCV 91.5, MCH 29.4, MCHC 32.1, RDW Std Deviation 45.6 H, RDW Coeff of Reid 13.6, Plt Count 330, MPV 9.6, Immature Gran % (Auto) 1.700 H, Neut % (Auto) 79.2 H, Lymph % (Auto) 15.6 L, Cass % (Auto) 3.2, Eos % (Auto) 0.0, Baso % (Auto) 0.3, Absolute Neuts (auto) 10.6 H, Absolute Lymphs (auto) 2.10, Nucleated RBC % 0, Sodium 133 L, Potassium 4.5, Chloride 104, Carbon Dioxide 23.0, Anion Gap 6, BUN 17, Creatinine 0.90, Estim Creat Clear Calc 79.11, Est GFR (MDRD) Af Amer 108, Est GFR (MDRD) Non-Af 89, BUN/Creatinine Ratio 18.9, Glucose 146 H, Calcium 9.3 12/13/23 07:03: POC Glucose 137 H 12/13/23 11:53: POC Glucose 143 H Microbiology: Microbiology 12/11/23 01:00 Urine, Clean Catch Urine Culture - Final Culture exhibits no growth. 12/10/23 09:16 Blood Culture (Wb) - Arm Right Blood Culture - Preliminary No growth in 48 hours. 12/10/23 09:39 Blood Culture (Wb) - Right Wrist Blood Culture - Preliminary No growth in 48 hours. 12/11/23 14:45 Urine, Clean Catch Streptococcus pneumoniae Antigen (M - Final 12/11/23 14:45 Urine, Clean Catch Legionella Antigen - Final 12/11/23 09:53 Stool Stool Occult Blood (JUSTINE) - Final 12/11/23 06:15 Stool Enteric Bacteriology - Final 12/11/23 06:15 Stool Clostridioides difficile (PCR) - Final 12/10/23 16:15 Mucosa - Nasopharyngeal Respiratory Panel (PCR) - Final Influenza A (Subtype H3) 12/10/23 09:15 Mucosa - Nose SARS-CoV-2, Influenza & RSV (PCR) - Final Influenzae A Meaningful Use Info Meaningful Use Diagnoses (Choose all that apply): None applicable Discharge Plan Admission Admit Date/Time: 12/10/23 10:50 Primary Reason for Your Visit: hypoxia, pneumonia. Influenza Attending Provider: Aleksandar Gomez Primary Care Provider: Jaylen Win Consulting Providers: Jenna Howell Discharge Orders/Prescriptions Prescriptions: New lorazepam 0.5 mg Tablet 0.5 mg PO Q8H PRN PRN (Reason: Agitation) Qty: 10 0RF cefdinir 300 mg capsule 300 mg PO BID Qty: 6 0RF Rx Instructions: Started on 12/14/2023, administered for 3 days then stop Continued metformin 500 MG tablet 1,000 mg PO BID Patient Comments: DIABETES fluticasone propion-salmeterol [Advair Diskus] 1 PUFF inhaler 1 puff inhalation BID Patient Comments: COPD clozapine [Clozaril] 100 MG tablet 100 mg PO BID acetaminophen 500 MG tablet 1,000 mg PO TID simvastatin 40 MG tablet 40 mg PO QHS levothyroxine 75 MCG tablet 75 mcg PO DAILY carbamazepine [Tegretol] 200 MG tablet 200 mg PO 4X/DAY Patient Comments: SEIZURES famotidine 20 MG tablet 20 mg PO BID metoprolol succinate 25 MG tablet 12.5 mg PO DAILY lisinopril 2.5 MG tablet 2.5 mg PO DAILY duloxetine 20 MG capsule 20 mg PO DAILY magnesium hydroxide 30 ML suspension 30 ml PO DAILY PRN (Reason: Constipation) albuterol sulfate [ProAir HFA] 1 PUFF inhaler 2 puff inhalation Q4H PRN PRN (Reason: Wheezing) calcium carbonate 500 MG tablet 500 mg PO BID tamsulosin 0.4 MG capsule 0.4 mg PO DAILY montelukast 10 MG tablet 10 mg PO DAILY albuterol sulfate 2.5 mg /3 mL (0.083 %) solution for nebulization 2.5 mg inhalation Q4H PRN (Reason: shortness of breath or wheezing) aspirin 81 mg tablet,delayed release (DR/EC) 81 mg PO DAILY benztropine 0.5 mg tablet 0.5 mg PO DAILY clozapine 100 mg tablet 500 mg PO QHS docusate sodium 100 mg tablet 100 mg PO DAILY bisacodyl [Dulcolax (bisacodyl)] 10 mg suppository 10 mg [place] DAILY PRN (Reason: constipation) omega-3 fatty acids 1,000 mg capsule 1,000 mg PO BID folic acid 400 mcg tablet 400 mcg PO DAILY furosemide 20 mg tablet 20 mg PO DAILY ibuprofen [IBU] 400 mg tablet 400 mg PO Q6H PRN (Reason: pain) alum-mag hydroxide-simeth [Antacid] 200-200-20 mg/5 mL suspension 30 ml PO Q4H PRN (Reason: GI UPSET) nicotine (polacrilex) 2 mg lozenge 2 mg PO Q2H Rx Instructions: DO NOT EXCEED 8 LOZENGES PER DAY Nicotrol 10 mg cartridge 1 inh inhalation Q2H PRN (Reason: nicotine cravings) Rx Instructions: DO NOT EXCEED 8 CARTRIDGES PER DAY sodium chloride 1,000 mg tablet,soluble 1,000 mg PO BID cholecalciferol (vitamin D3) 1,250 mcg (50,000 unit) capsule 1,250 mcg PO TU olanzapine 15 mg tablet 15 mg PO QHS Discontinued lorazepam [Ativan] 1 mg tablet 1 mg PO TID DermaPhor 44 % ointment 1 ea topical PRN oseltamivir [Tamiflu] 75 mg capsule 75 mg PO BID Referrals / Follow Up: Jaylen Win MD [Primary Care Provider] - Disposition Disposition (needs filled in before D/C Order can be placed): NonSkilled NH/Intermed Care Charges/Coding Visit Charges Inpatient E&M: 14303 Disch Hosp >30min
[2023-12-13 16:24] LABS: Bedside Glucose 146 mg/dL (74-106)
--- NOTE | 2023-12-13 16:52 | NURSING ---
Report given to Janes LEE at [facility] at this time.
== END 2023-12-13 17:03 | disposition intermediate care facility (04) | DRG 113 ==
LOC: ED 13:48 → MS3 13:52
PROVIDERS: Internal Medicine; Admitting Provider Internal Medicine; Emergency Provider Emergency Medicine; PCP Family Medicine; Visit Provider Internal Medicine
DX: J10.01 Influenza due to other identified influenza virus with the same other identified influenza virus pneumonia (principal); G92.8 Other toxic encephalopathy; J44.0 Chronic obstructive pulmonary disease with (acute) lower respiratory infection; D63.8 Anemia in other chronic diseases classified elsewhere; E87.1 Hypo-osmolality and hyponatremia; N13.8 Other obstructive and reflux uropathy; I11.0 Hypertensive heart disease with heart failure; E11.65 Type 2 diabetes mellitus with hyperglycemia; F20.9 Schizophrenia, unspecified; I50.9 Heart failure, unspecified; J44.1 Chronic obstructive pulmonary disease with (acute) exacerbation; E03.9 Hypothyroidism, unspecified; J15.9 Unspecified bacterial pneumonia; E86.0 Dehydration; G51.0 Bell's palsy; F17.200 Nicotine dependence, unspecified, uncomplicated; E78.5 Hyperlipidemia, unspecified; Z66 Do not resuscitate; N40.1 Benign prostatic hyperplasia with lower urinary tract symptoms
CPT/HCPCS: 36415; 36600; 70450; 71045; 80048; 80053; 81001; 82140; 82274; 82728; 82803; 82962; 83540; 83550; 83605; 83735; 84100; 84443; 85025; 85027; 85610; 85730; 87040; 87086; 87449; 87493; 87506; 87631; 87633; 93005; 94640; 94668; 97161; 97802; 99252; 99285; 99406; J7030; J7050; J7120; A4216; G0463

== ENCOUNTER 2025-03-19 23:03 | Emergency (ER) | payer MEDICAID, SELFPAY ==
[2025-03-19 23:06] VITALS: BP 113/61; PULSE 89; RESP 17; TEMP 36.9; O2SAT 98; BMI 40.9
--- NOTE | 2025-03-19 23:25 | EDS_ITS ---
HPI History of Present Illness Chief Complaint: Alt LOC Narrative Narrative: 69-year-old male presents from [facility] with hypotension and decreased responsiveness. He does have a state of [place] DO NOT RESUSCITATE comfort care only there was signed by his sister and by Dr. Nesbitt. He is only responsive to painful stimuli mildly. [facility] Medical History Pneumonia History of diabetes mellitus History of Lynn's palsy History of COPD Schizophrenia Hypothyroidism Hypertension GERD Diabetes mellitus type II Home Medications ?Medication ?Instructions ?Recorded ?Last Taken ?Type acetaminophen 500 mg tablet 1,000 mg PO TID 03/20/14 U nknown History carbamazepine 200 mg tablet 200 mg PO 4X/DAY 03/20/14 Unknown History (Tegretol) clozapine 100 mg tablet (Clozaril) 100 mg PO BID SCHIZ OPHRENIA 03/20/14 Unknown History duloxetine 20 mg capsule,delayed 20 mg PO DAILY Unknown History release fluticasone 250 mcg-salmeterol 50 1 puff inhalation BI D 03/20/14 Unknown History mcg/dose blistr powdr for inhalation (Advair Diskus) levothyroxine 75 mcg tablet 75 mcg PO DAILY 03/20/14 U nknown History lisinopril 2.5 mg tablet 2.5 mg PO DAILY 03/20/14 Unk nown History metformin 500 mg tablet 1,000 mg PO BID 03/20/14 Unk nown History metoprolol succinate 25 mg 12.5 mg PO DAILY 03/20/14 U nknown History tablet,extended release 24 hr simvastatin 40 mg tablet 40 mg PO QHS 03/20/14 Unknow n History magnesium hydroxide 400 mg/5 mL 30 ml PO DAILY PRN Con stipation 03/21/14 Unknown History oral suspension calcium carbonate 500 mg PO BID 03/21/18 Unkno wn History tamsulosin 0.4 mg capsule 0.4 mg PO DAILY 03/21/18 Unk nown History albuterol sulfate 2.5 mg/3 mL 2.5 mg inhalation Q4H TN N 12/10/23 Unknown History (0.083 %) solution for nebulization shortness of breat h or wheezing aluminum-mag hydroxide-simethicone 30 ml PO Q4H PRN GI UPSET 12/10/23 Unknown History 200 mg-200 mg-20 mg/5 mL oral susp (Antacid) aspirin 81 mg tablet,delayed 81 mg PO DAILY 12/10/23 U nknown History release benztropine 0.5 mg tablet 0.5 mg PO DAILY 12/10/23 Unk nown History bisacodyl 10 mg rectal suppository 10 mg [place] DAILY PRN constipation 12/10/23 Unknown History (Dulcolax (bisacodyl)) cholecalciferol (vitamin D3) 1,250 1,250 mcg PO TU Unknown History mcg (50,000 unit) capsule clozapine 100 mg tablet 400 mg PO QHS SCHIZOPHRENIA 12/10/23 Unknown History docusate sodium 100 mg tablet 100 mg PO DAILY CONSTIPA TION 12/10/23 Unknown History folic acid 400 mcg tablet 1 mg PO DAILY 12/10/23 Unkno wn History furosemide 20 mg tablet 20 mg PO DAILY 12/10/23 Unkn own History ibuprofen 400 mg tablet (IBU) 400 mg PO Q6H PRN pain 0 12/10/23 Unknown History nicotine (polacrilex) 2 mg buccal 2 mg PO Q2H 12/10/23 Unknown History lozenge nicotine 10 mg inhalation 1 inh inhalation Q2H PRN yuki otine 12/10/23 Unknown History cartridge (Nicotrol) cravings olanzapine 15 mg tablet 15 mg PO QHS 12/10/23 Unknow n History omega-3 fatty acids 1,000 mg 1,000 mg PO BID CHOLESTER OL 12/10/23 Unknown History capsule sodium chloride 1,000 mg soluble 1,000 mg PO BID 12/09 Unknown History tablet lorazepam 0.5 mg tablet 0.5 mg PO Q8H PRN PRN Agitat ion 12/13/23 Unknown Rx #10 tabs Allergy/AdvReac Type Severity Reaction Status Date / Time No Known Allergies Allergy Verified 03/19/25 23:05 Social History Smoking Status: Light Smoker (<10/day) ROS ROS ED ROS Narrative Unable to obtain from patient due to current mental status. EXAM Physical Exam Narrative Exam Narrative: Afebrile. Vital signs noted. Blood pressure 113/61 initially. Responds to painful stimuli. Cardiovascular examination regular rate and rhythm. Lungs clear to auscultation bilaterally. Abdomen soft and nontender. Positive bowel sounds. Const Vital Signs: 03/19/25 23:06 03/19/25 23:58 Temperature 98.4 F 98.3 F Temperature Source Oral Pulse Rate 89 81 Respiratory Rate 17 19 H Blood Pressure 113/61 85/51 L Blood Pressure Mean 78 62 Pulse Ox 98 92 MDM MDM MDM Narrative Medical decision making narrative: I do not feel differential diagnosis is applicable. Currently not hypotensive. [id number] glucose 129. Additionally has a [facility] DNR comfort care only signed. I did speak with his sister Nicole. He will be [facility] back to [facility] [place] [facility] under his [facility] DNR comfort care only. I feel any testing can be performed there and that no emergent testing or imaging is needed, and to honor his DNR [employer] status. Disposition is discharged. Lab Data Labs: Laboratory Results - last 24 hr 03/19/25 23:10 POC Glucose 129 H Discharge Plan Triage Chief Complaint: Alt LOC ED Provider: Chito Silva Dx/Rx/DC Orders Clinical Impression: Do not resuscitate status with supporting documentation Instructions: Understanding DNR Orders Prescriptions: No Action metformin 500 MG tablet 1,000 mg PO BID Patient Comments: DIABETES fluticasone propion-salmeterol [Advair Diskus] 1 PUFF inhaler 1 puff inhalation BID Patient Comments: COPD clozapine [Clozaril] 100 MG tablet 100 mg PO BID acetaminophen 500 MG tablet 1,000 mg PO TID simvastatin 40 MG tablet 40 mg PO QHS levothyroxine 75 MCG tablet 75 mcg PO DAILY carbamazepine [Tegretol] 200 MG tablet 200 mg PO 4X/DAY Patient Comments: SEIZURES metoprolol succinate 25 MG tablet 12.5 mg PO DAILY lisinopril 2.5 MG tablet 2.5 mg PO DAILY duloxetine 20 MG capsule 20 mg PO DAILY magnesium hydroxide 30 ML suspension 30 ml PO DAILY PRN (Reason: Constipation) calcium carbonate 500 MG tablet 500 mg PO BID tamsulosin 0.4 MG capsule 0.4 mg PO DAILY albuterol sulfate 2.5 mg /3 mL (0.083 %) solution for nebulization 2.5 mg inhalation Q4H PRN (Reason: shortness of breath or wheezing) aspirin 81 mg tablet,delayed release (DR/EC) 81 mg PO DAILY benztropine 0.5 mg tablet 0.5 mg PO DAILY clozapine 100 mg tablet 400 mg PO QHS docusate sodium 100 mg tablet 100 mg PO DAILY bisacodyl [Dulcolax (bisacodyl)] 10 mg suppository 10 mg [place] DAILY PRN (Reason: constipation) omega-3 fatty acids 1,000 mg capsule 1,000 mg PO BID folic acid 400 mcg tablet 1 mg PO DAILY furosemide 20 mg tablet 20 mg PO DAILY ibuprofen [IBU] 400 mg tablet 400 mg PO Q6H PRN (Reason: pain) alum-mag hydroxide-simeth [Antacid] 200-200-20 mg/5 mL suspension 30 ml PO Q4H PRN (Reason: GI UPSET) nicotine (polacrilex) 2 mg lozenge 2 mg PO Q2H Rx Instructions: DO NOT EXCEED 8 LOZENGES PER DAY Nicotrol 10 mg cartridge 1 inh inhalation Q2H PRN (Reason: nicotine cravings) Rx Instructions: DO NOT EXCEED 8 CARTRIDGES PER DAY sodium chloride 1,000 mg tablet,soluble 1,000 mg PO BID cholecalciferol (vitamin D3) 1,250 mcg (50,000 unit) capsule 1,250 mcg PO TU olanzapine 15 mg tablet 15 mg PO QHS lorazepam 0.5 mg Tablet 0.5 mg PO Q8H PRN PRN (Reason: Agitation) Qty: 10 0RF Primary Care Provider: Jaylen Win Referrals: Jaylen Win MD [Primary Care Provider] - As soon as possible Activity Restrictions/Additional Instructions: The patient is DO NOT RESUSCITATE comfort care only. He may need consultation with hospice. Print Language: [place] Islander Disposition Disposition: Home, Self Care Discharge Date/Time: 03/20/25 00:11
[2025-03-19 23:29] LABS: Bedside Glucose 129 mg/dL (74-106)
--- OUTSIDE RECORDS SUMMARY | 2025-03-19 23:45 | XMS RPT_ITS | CCD ---
Author Organization [facility] Care Team Providers Care Order Builder Name Role Phone Aurelia Celaya MD Unavailable [phone] DEREK WINDY Unavailable Unavailable Jaylen Win Unavailable Unavailable Jaylen Win Unavailable Unavailable Aurelia Celaya MD Unavailable Dr. Jaylen Win Primary Care Provider Dr. Geronimo Corley Emergency Provider Dr. Jenna Howell Admit Provider Dr. Jenna Howell Attending Provider Dr. Jenna Howell Other Provider Dr. Aleksandar Gomez Attending Provider Dr. Aleksandar Gomez Other Provider Jaylen Win Primary Care Unavailable Jenna Howell Consulting Unavailable Jenna Howell Attending Unavailable Jenna Howell Admitting Unavailable Aleksandar Gomez Attending Unavailable Aleksandar Gomez Consulting Unavailable Jenna Howell Admitting Unavailable Aleksandar Gomez Attending Unavailable Jaylen Win Primary Care Unavailable Jenna Howell Consulting Unavailable Medications Current Medications Medication Drug Class(es) Dates Sig (Normalized) Sig (Original) albuterol 0.83 mg/ml inhalation solution (9 sources) beta2-Adrenergic Agonist Start: 12-10-2023 take 2.5 mg by inhalation every four hours Albuterol Sulfate Active 2.5 MG INHALATION Q4H December 10, 2023 12:00am Start: 05-22-2017 ALBUTEROL SULF ATE (2.5 MG/3ML) 0.083% [facility] AL[facility]UL[facility]ATE [id number] Aurelia Celaya MD Start: 05-22-2017 PROAIR HFA 108 (90 Base) MCG/ACT AERS ALBUTEROL SULFATE [id number] Aurelia Celaya MD Start: 05-22-2017 PROAIR HFA 108 (90 Base) MCG/ACT AERS ALBUTEROL SULFATE [id number] Aurelia Celaya MD Start: 03-21-2014 take 1 puff(s) by in halation every four hours as needed Albuterol Sulfate (Proair Hfa) 1 PUFF inhaler Active 2 PUFF INHALATION EVERY 4 HOURS NEEDED March 21, 2014 12:00am Start: 03-21-2014 End: 12-10-2023 take 1 puff(s) by inhalation every three hours Albuterol Sulfate (Ventolin Hfa) 1 INHALER inhaler Discontinued 2 PUFF INHALATION Q3H March 21, 2014 12:00am December 10, 2023 11:28am Albuterol Sulfate (Proair Hfa) 1 PUFF inhaler (1 source) Start: 03-21-2014 take 1 puff(s) by inhalation every four hours as needed Albuterol Sulfate (Proair Hfa) 1 PUFF inhaler Active 2 PUFF INHALATION EVERY 4 HOURS NEEDED March 21, 2014 12:00am Alum-Mag Hydroxide-Simeth (Antacid) 200-200-20 mg/5 mL suspension (2 sources) Start: 12-10-2023 take 1 mL by mouth every four hours Alum-Mag Hydroxide-Simeth (Antacid) 200-200-20 mg/5 mL suspension Active 30 ML PO Q4H December 10, 2023 12:00am aspirin 81 mg delayed release oral tablet (4 sources) Platelet Aggregation Inhibitor, Nonsteroidal Anti-inflammatory Drug Start: 12-10-2023 take 81 mg by mouth once daily Aspirin Active 81 MG PO DAILY December 10, 2023 12:00am Start: 03-20-2014 End: 12-10-2023 take 81 mg by mouth once daily Aspirin Discontinued 81 MG PO DAILY@0800 March 20, 2014 12:00am December 10, 2023 11:04am benztropine mesylate 0.5 mg oral tablet (6 sources) Anticholinergic, Antihistamine Start: 12-10-2023 take 0.5 mg by mouth once daily Benztropine Active 0.5 MG PO DAILY December 10, 2023 12:00am Start: 05-22-2017 take 1 tablet by once daily BENZTROPINE MESYLATE 1 MG TABS One tablet by mouth daily BENZTROPINE MESYLATE [id number] Aurelia Celaya MD Start: 03-20-2014 End: 12-10-2023 take 1 mg by mouth once daily Benztropine Discontinued 1 MG PO DAILY March 20, 2014 12:00am December 10, 2023 11:04am bisacodyl 10 mg rectal suppository (6 sources) Stimulant Laxative Start: 12-10-2023 Bisacodyl ( Dulcolax (Bisacodyl)) 10 mg suppository Active 10 MG RC DAILY December 10, 2023 12:00am Start: 05-22-2017 DULCOLAX TBEC PRN BISACODYL TBEC [id number] Aurelia Celaya MD Start: 05-22-2017 DULCOLAX SUPP PRN BISACODYL SUPP [id number] Aurelia Celaya MD calcium carbonate 1250 mg oral tablet (2 sources) Start: 03-21-2018 take 500 mg by mouth twice daily Calcium Carbonate Active 500 MG PO TWICE A DAY March 21, 2018 12:00am carBAMazepine 200 mg oral tablet (4 sources) Mood Stabilizer Start: 03-20-2014 take 1 tablet by mouth four times daily Carbamazepine (Tegretol) 200 MG tablet Active 200 MG PO 4 TIMES DAILY March 20, 2014 12:00am cefdinir 300 mg oral capsule (1 source) Cephalosporin Antibacterial Start: 12-13-2023 Cefdinir Active 300 MG PO TWICE A DAY December 13, 2023 12:00am Started on 12/14/2023, administered for 3 days then stop cholecalciferol 1.25 mg oral capsule (2 sources) Vitamin D Start: 12-10-2023 Cholecalciferol (Vitamin D3) Active 1250 MCG PO TU December 10, 2023 12:00am cloZAPine 100 mg oral tablet (8 sources) Atypical Antipsychotic Start: 12-10-2023 take 500 mg by mouth at bedtime Clozapine Active 500 MG PO AT BEDTIME December 10, 2023 12:00am Start: 05-22-2017 take 5 tablets by mo [facility] at bedtime CLOZARIL 100 MG TABS Give 5 tablets by mouth at bedtime CLOZAPINE [id number] Aurelia Celaya MD Start: 03-20-2014 take 1 tablet by nasim twice daily Clozapine (Clozaril) 100 MG tablet Active 100 MG PO TWICE A DAY March 20, 2014 12:00am Start: 03-20-2014 End: 12-10-2023 take 500 mg by mouth at bedtime Clozapine Discontinued 500 MG PO AT BEDTIME March 20, 2014 12:00am December 10, 2023 11:07am docusate sodium 100 mg oral tablet (2 sources) Start: 12-10-2023 take 100 mg by mouth once daily Docusate Sodium Active 100 MG PO DAILY December 10, 2023 12:00am DULoxetine 20 mg delayed release oral capsule (4 sources) Serotonin and Norepinephrine Reuptake Inhibitor Start: 03-20-2014 take 20 mg by mouth once daily Duloxetine Active 20 MG PO DAILY March 20, 2014 12:00am folic acid 0.4 mg oral tablet (4 sources) Start: 12-10-2023 take 400 ug by mouth once daily Folic Acid Active 400 MCG PO DAILY December 10, 2023 12:00am Start: 03-20-2014 End: 12-10-2023 take 1 mg by mouth once daily Folic Acid Discontinued 1 MG PO DAILY March 20, 2014 12:00am December 10, 2023 11:13am furosemide 20 mg oral tablet (6 sources) Loop Diuretic Start: 12-10-2023 take 20 mg by mouth once daily Furosemide Active 20 MG PO DAILY December 10, 2023 12:00am Start: 05-22-2017 [facility] LASIX 20 MG TABS One tablet by mouth daily FUROSEMIDE [id number] Aurelia Celaya MD Start: 03-20-2014 End: 12-10-2023 take 20 mg by mouth once daily Furosemide Discontinued 20 MG PO DAILY March 20, 2014 12:00am December 10, 2023 11:13am ibuprofen 400 mg oral tablet (2 sources) Nonsteroidal Anti-inflammatory Drug Start: 12-10-2023 take 1 tablet by mouth every six hours Ibuprofen (Ibu) 400 mg tablet Active 400 MG PO EVERY 6 HOURS December 10, 2023 12:00am levothyroxine sodium 0.075 mg oral tablet (4 sources) l-Thyroxine Start: 03-20-2014 take 75 ug by mouth once daily Levothyroxine Active 75 MCG PO DAILY March 20, 2014 12:00am lisinopril 2.5 mg oral tablet (4 sources) Angiotensin Converting Enzyme Inhibitor Start: 03-20-2014 take 2.5 mg by mouth once daily Lisinopril Active 2.5 MG PO DAILY March 20, 2014 12:00am LORazepam 0.5 mg oral tablet (9 sources) Benzodiazepine Start: 12-13-2023 take 0.5 mg by mouth every eight hours as needed Lorazepam Active 0.5 MG PO EVERY 8 HOURS NEEDED December 13, 2023 12:00am Start: 12-10-2023 End: 12-13-2023 take 1 tablet by mouth three times daily Lorazepam (Ativan) 1 mg tablet Discontinued 1 MG PO THREE TIMES A DAY December 10, 2023 12:00am December 13, 2023 3:00pm Start: 05-22-2017 take 1 tablet by nasim th three times daily ATIVAN 1 MG TABS One tablet by mouth three times daily LORAZEPAM [id number] Aurelia Celaya MD Start: 05-22-2017 LORAZEPAM 1 MG TABS 1 tablet every 6 hours LORAZEPAM [id number] Aurelia Celaya MD Start: 03-20-2014 End: 12-10-2023 take 1 mg by mouth three times daily Lorazepam Discontinued 1 MG PO THREE TIMES A DAY March 20, 2014 12:00am December 10, 2023 11:05am Magnesium Hydroxide (2 sources) Start: 03-21-2014 take 1 mL by mouth once daily Magnesium Hydroxide Active 30 ML PO DAILY March 21, 2014 12:00am montelukast 10 mg oral tablet (4 sources) Leukotriene Receptor Antagonist Start: 03-21-2018 take 10 mg by mouth once daily Montelukast Active 10 MG PO DAILY March 21, 2018 12:00am Start: 05-22-2017 SINGULAIR 10 M G TABS MONTELUKAST SODIUM [id number] Aurelia Celaya MD nicotine 2 mg oral lozenge (4 sources) Cholinergic Nicotinic Agonist Start: 12-10-2023 take 10 mg by inhalation every two hours Nicotine (Nicotrol) 10 mg cartridge Active 1 INH INHALATION Q2H December 10, 2023 12:00am DO NOT EXCEED 8 CARTRIDGES PER DAY Start: 12-10-2023 take 2 mg by mouth e very two hours Nicotine (Polacrilex) Active 2 MG PO Q2H December 10, 2023 12:00am DO NOT EXCEED 8 LOZENGES PER DAY OLANZapine 15 mg oral tablet (6 sources) Atypical Antipsychotic Start: 12-10-2023 take 15 mg by mouth at bedtime Olanzapine Active 15 MG PO AT BEDTIME December 10, 2023 12:00am Start: 05-22-2017 ZYPREXA 15 MG TABS OLANZAPINE [id number] Aurelia Celaya MD Start: 03-20-2014 End: 12-10-2023 Olanzapine (Zyprexa) 20 MG t ablet Discontinued 15 MG PO DAILY March 20, 2014 12:00am December 10, 2023 11:27am [place]-3 Fatty Acids (2 sources) Start: 12-10-2023 take 1000 mg by mouth twice daily [place]-3 Fatty Acids Active 1000 MG PO TWICE A DAY December 10, 2023 12:00am simvastatin 40 mg oral tablet (4 sources) HMG-CoA Reductase Inhibitor Start: 03-20-2014 take 40 mg by mouth at bedtime Simvastatin Active 40 MG PO AT BEDTIME March 20, 2014 12:00am sodium chloride 1000 mg oral tablet (6 sources) Start: 12-10-2023 take 1000 mg by mouth twice daily Sodium Chloride Active 1000 MG PO TWICE A DAY December 10, 2023 12:00am Start: 03-21-2018 End: 12-10-2023 take 1 g by mouth twice daily Sodium Chloride Disconti nued 1 GM PO TWICE A DAY March 21, 2018 12:00am December 10, 2023 11:24am Start: 05-22-2017 SODIUM CHLORID E TABS SODIUM CHLORIDE TABS [id number] Aurelia Celaya MD tamsulosin hydrochloride 0.4 mg oral capsule (4 sources) alpha-Adrenergic Ulisses Start: 03-21-2018 take 0.4 mg by mouth once daily Tamsulosin Active 0.4 MG PO DAILY March 21, 2018 12:00am Start: 05-22-2017 take 1 tablet by nasim th once daily FLOMAX 0.4 MG CAPS One tablet by mouth daily TAMSULOSIN HCL [id number] Aurelia Celaya MD Completed/Discontinued Medications Medication Drug Class(es) Dates Sig (Normalized) Sig (Original) ACETAMINOPHEN CAPS (4 sources) Start: 05-22-2017 TYLENOL CAPS ACETAMINOPHEN CAPS [id number] Aurelia Celaya MD Start: 03-20-2014 take 1000 mg by mout h three times daily Acetaminophen Active 1000 MG PO THREE TIMES A DAY March 20, 2014 12:00am Alum-Mag Hydroxide-Simeth (Mag-Al Plus Extra Strength) 30 ML suspension (2 sources) Start: 03-21-2014 End: 12-10-2023 take 1 mL by mouth every four hours as needed Alum-Mag Hydroxide-Simeth (Mag-Al Plus Extra Strength) 30 ML suspension Discontinued 30 ML PO EVERY 4 HOURS NEEDED March 21, 2014 12:00am December 10, 2023 11:28am ALUM & MAG HYDROXIDE-SIMETH SUSP (2 sources) Start: 05-22-2017 MYLANTA SUSP ALUM & MAG HYDROXIDE-SIMETH SUSP [id number] Aurelia Celaya MD DEXTROMETHORPHAN HBR SYRP (2 sources) Uncompetitive H-zifhst-B-aspart[place] te Receptor Antagonist, Sigma-1 Agonist Start: 05-22-2017 TUSSIN COUGH SYRP DEXTROMETHORPHAN HBR SYRP [id number] Aurelia Celaya MD Start: 05-22-2017 TUSSIN COUGH S YRP DEXTROMETHORPHAN HBR SYRP [id number] Aurelia Celaya MD ergocalciferol 1.25 mg oral capsule (2 sources) Provitamin D2 Compound Start: 03-20-2014 End: 12-10-2023 take 1 capsule by mouth every week Ergocalciferol (Vitamin D2) (Vitamin D2) 50,000 UNIT capsule Discontinued [id number] UNIT PO Q7D March 20, 2014 12:00am December 10, 2023 11:12am famotidine 20 mg oral tablet (4 sources) Histamine-2 Receptor Antagonist Start: 05-22-2017 take 1 tablet by mouth once daily PEPCID 20 MG TABS One tablet by mouth daily FAMOTIDINE [id number] Aurelia Celaya MD Start: 03-20-2014 take 20 mg by mouth twice geena y Famotidine Active 20 MG PO TWICE A DAY March 20, 2014 12:00am fish oil (1 source) Start: 05-22-2017 take 1 tablet by mouth once daily OMEGA-3 FISH OIL CAPS One tablet by mouth daily OMEGA-3 FATTY ACIDS CAPS [id number] Aurelia Celaya MD FLUTICASONE-SALM ETEROL (4 sources) Corticosteroid, beta2-Adrenergic Agonist Start: 05-22-2017 ADVAIR DISKUS 250-50 MCG/DOSE AEPB FLUTICASONE-SALMETER OL [id number] Aurelia Celaya MD Start: 05-22-2017 ADVAIR DISKUS 250-50 MCG/DOSE AE FLUTICASONE-SALMETEROL [id number] Aurelia Celaya MD Start: 03-20-2014 take 1 puff(s) by in halation twice daily Fluticasone Propion-Salmeterol (Advair Diskus) 1 PUFF inhaler Active 1 PUFF INHALATION TWICE A DAY March 20, 2014 12:00am INSULIN GLARGINE (2 sources) Insulin Analog Start: 05-22-2017 LANTUS SOLOSTA R 100 UNIT/ML [facility] INSULIN GLARGINE [id number] Aurelia Celaya MD Start: 05-22-2017 LANTUS SOLOSTA R 100 UNIT/ML [facility] INSULIN GLARGINE [id number] Aurelia Celaya MD Insulin Glargine (Lantus) 100 UNIT/ML solution (2 sources) Start: 03-21-2018 End: 12-10-2023 Insulin Glargine (Lantus) 100 UNIT/ML solution Discontinued 5 UNIT SC AT BEDTIME March 21, 2018 12:00am December 10, 2023 11:25am LOPERAMIDE HCL TABS (2 sources) Opioid Agonist Start: 05-22-2017 IMODIUM A-D TA BS LOPERAMIDE HCL TABS [id number] Aurelia Celaya MD metFORMIN hydrochloride 1000 mg oral tablet (4 sources) Biguanide Start: 05-22-2017 take 1 tablet by mouth twice daily METFORMIN HCL 1000 MG TABS One tablet by mouth twice daily METFORMIN HCL [id number] Aurelia Celaya MD Start: 03-20-2014 take 1000 mg by mout h twice daily Metformin Active 1000 MG PO TWICE A DAY March 20, 2014 12:00am METOPROLOL SUCCINATE (4 sources) beta-Adrenergic Ulisses Start: 05-22-2017 take 1 tablet by mouth once daily TOPROL XL 25 MG [id number] One tablet by mouth daily METOPROLOL SUCCINATE [id number] Aurelia Celaya MD Start: 03-20-2014 take 12.5 mg by mout h once daily Metoprolol Succinate Active 12.5 MG PO DAILY March 20, 2014 12:00am OMEGA-3 FATTY ACIDS CAPS (1 source) Start: 05-22-2017 take 1 tablet by mouth once daily OMEGA-3 FISH OIL CAPS One tablet by mouth daily OMEGA-3 FATTY ACIDS CAPS [id number] Aurelia Celaya MD [place]-3 Fatty Acids-Fish Oil (Fish Oil) 1 EACH capsule (2 sources) Start: 03-20-2014 End: 12-10-2023 [place]-3 Fatty Acids-Fish Oil (Fish Oil) 1 EACH capsule Discontinued 1 EACH PO DAILY March 20, 2014 12:00am December 10, 2023 11:28am oseltamivir 75 mg oral capsule (2 sources) Neuraminidase Inhibitor Start: 12-10-2023 End: 12-13-2023 take 1 capsule by mouth twice daily Oseltamivir (Tamiflu) 75 mg capsule Discontinued 75 MG PO TWICE A DAY December 10, 2023 12:00am December 13, 2023 2:58pm petrolatum 0.44 mg/mg topical ointment (2 sources) Start: 12-10-2023 End: 12-13-2023 White Petrolatum (Dermaphor) 44 % ointment Discontinued 1 EACH TOPICAL NEEDED December 10, 2023 12:00am December 13, 2023 2:58pm promethazine hydrochloride 25 mg oral tablet (2 sources) Phenothiazine Start: 05-22-2017 PROMETHAZINE HCL 25 MG TABS PROMETHAZINE HCL [id number] Aurelia Celaya MD traMADol hydrochloride 50 mg oral tablet (4 sources) Opioid Agonist Start: 03-21-2014 End: 12-10-2023 take 50 mg by mouth every six hours as needed Tramadol Discontinued 50 MG PO EVERY 6 HOURS NEEDED March 21, 2014 12:00am December 10, 2023 11:28am CHOLECALCIFEROL CAPS (2 sources) Start: 05-22-2017 VITAMIN D CAPS CHOLECALCIFEROL CAPS [id number] Aurelia Celaya MD Problems Active Problems Problem Classification Problem Date Documented Date Episodic/Chronic Chronic obstructive pulmonary disease and bronchiectasis (7 sources) Chronic obstructive lung disease; Translations: [Acute exacerbation of chronic obstructive airways disease] Onset: 05-22-2017 05-22-2017 Chronic Congestive heart failure; nonhypertensive (2 sources) Heart failure; Translations: [Heart failure, unspecified] Onset: 05-22-2017 05-22-2017 Chronic Deficiency and other anemia (2 sources) Anemia; Translations: [Anemia, unspecified] 12-10-2023 Episodic Deficiency and other anemia (3 sources) Anemia, unspecified; Translations: [Anemia, unspecified] Onset: 12-15-2023 12-10-2023 Episodic Developmental disorders (2 sources) Moderate mental retardation (I.Q. 35-49); Translations: [Moderate intellectual disabilities] Onset: 05-22-2017 05-22-2017 Chronic Diabetes mellitus without complication (4 sources) Type 2 diabetes mellitus without complication; Translations: [Type 2 diabetes mellitus] Onset: 05-22-2017 05-22-2017 Chronic Esophageal disorders (4 sources) Gastroesophageal reflux disease; Translations: [Gastro-esophageal reflux disease without esophagitis] Onset: 05-22-2017 05-22-2017 Chronic Essential hypertension (4 sources) Essential hypertension; Translations: [Hypertensive disorder] Onset: 05-22-2017 05-22-2017 Chronic Fluid and electrolyte disorders (12 sources) Hypo-osmolality and or hyponatremia; Translations: [Dehydration] Onset: 05-22-2017 05-22-2017 Episodic Gastroduodenal ulcer (except hemorrhage) (2 sources) Chronic [...] with heart failure] Onset: 05-22-2017 05-22-2017 Chronic Influenza (6 sources) Influenza due to Influenza A virus; Translations: [Influenza due to other identified influenza virus with other respiratory manifestations] Onset: 12-15-2023 12-10-2023 Episodic Other lower respiratory disease (2 sources) History of chronic obstructive airway disease; Translations: [Personal history of other diseases of the respiratory system] 12-10-2023 Episodic Other lower respiratory disease (2 sources) Hypoxia; Translations: [Hypoxemia] 12-10-2023 Episodic Other lower respiratory disease (3 sources) Hypoxemia; Translations: [Hypoxemia] Onset: 12-15-2023 12-10-2023 Episodic Other nervous system disorders (4 sources) H/O: Lynn's palsy; Translations: [Personal history of other diseases of the nervous system and sense organs] Onset: 05-22-2017 05-22-2017 Episodic Other nutritional; endocrine; and metabolic disorders (3 sources) Hypocalcemia; Translations: [Morbid obesity] Onset: 05-22-2017 05-22-2017 Chronic Other nutritional; endocrine; and metabolic disorders (1 source) Morbid obesity; Translations: [Morbid (severe) obesity due to excess calories] Onset: 05-22-2017 05-22-2017 Chronic Other nutritional; endocrine; and metabolic disorders (2 sources) H/O: diabetes mellitus; Translations: [Personal history of other endocrine, nutritional and metabolic disease] 12-10-2023 Episodic Other screening for suspected conditions (not mental disorders or infectious disease) (5 sources) Serum creatinine raised; Translations: [Other specified abnormal findings of blood chemistry] Onset: 12-15-2023 12-10-2023 Episodic Pancreatic disorders (not diabetes) (2 sources) Acute pancreatitis without necrosis or infection, unspecified; Translations: [Acute pancreatitis without necrosis or infection, unspecified] Onset: 05-22-2017 05-22-2017 Peripheral and visceral atherosclerosis (2 sources) Peripheral vascular disease; Translations: [Peripheral vascular disease, unspecified] Onset: 05-22-2017 05-22-2017 Chronic Pneumonia (except that caused by tuberculosis or sexually transmitted disease) (5 sources) Pneumonia; Translations: [Pneumonia, unspecified organism] Onset: 12-15-2023 12-10-2023 Episodic Schizophrenia and other psychotic disorders (4 sources) Schizophrenia; Translations: [Schizophrenia, unspecified] Onset: 05-22-2017 05-22-2017 Chronic Substance-related disorders (2 sources) Nicotine dependence; Translations: [Nicotine dependence, unspecified, uncomplicated] Onset: 05-22-2017 05-22-2017 Chronic Thyroid disorders (4 sources) Hypothyroidism; Translations: [Hypothyroidism, unspecified] Onset: 05-22-2017 05-22-2017 Chronic Past or Other Problems Problem Classification Problem Date Documented Da te Episodic/Chronic Abdominal pain (4 sources) Generalized abdominal pain; Translations: [Lower abdominal pain] Onset: 05-22-2017 05-22-2017 Episodic Anal and rectal conditions (2 sources) Anal and rectal polyp; Translations: [Rectal polyp] Onset: 05-22-2017 05-22-2017 Episodic Gastrointestinal hemorrhage (2 [...] unspecified lacrimal gland] Onset: 05-22-2017 05-22-2017 Episodic Residual codes; unclassified (2 sources) Altered mental status; Translations: [Altered mental status, unspecified] Onset: 05-22-2017 05-22-2017 Episodic Results Test Name Value Interpretation Reference Range Facility Culture, Blood (WB)on 2023 CUB No growth in 5 days. Normal [facility] Comment on above: Performed By: #### L 501.080 #### [facility] [address] [place], [place], [id number] (100) CUB No growth in 5 days. Normal [facility] Comment on above: Performed By: #### L 501.080 #### [facility] [address] [place], [address] Absolute lymphocyte countOrd ered By: Jenna Howell on 12-13-2023 Lymphocytes Auto (Unsp spec) [#/Vol] 2.10 10*3/uL 0.83-4.51 [facility] Automated lymphocyte count a s percentage of total leukocytesOrdered By: Jenna Howell on 12-13-2023 Lymphocytes/100 WBC Auto (Unsp spec) 15.6 % 19-41 [facility] Basic Metabolic Profile (BMP )on 12-13-2023 BUN/CRE 18.9 RATIO Normal 10-20 [facility] Comment on above: Performed By: #### L 100.0100, L500.2500 #### [facility] [address] [place], [address] CA,Total 9.3 mg/dL Normal 8.5-10.1 [facility] Comment on above: Performed By: #### L 100.0100, L500.2500 #### [facility] [address] [place], [address] Chloride [Moles/Vol] 104 mmol/L Normal 98-107 [facility] Comment on above: Performed By: #### L 100.0100, L500.2500 #### [facility] [address] [place], [address] CO2 [Moles/Vol] 23.0 mmol/L Normal 21.0-32.0 [facility] Comment on above: Performed By: #### L 100.0100, L500.2500 #### [facility] [address] [place], [address] Creatinine [Mass/Vol] 0.90 mg/dL Normal 0.70-1.30 [facility] Comment on above: Result Comment: The validity of the calculated GFR GFRAA in patients over 70 years has not been determined. Clinical correlation is essential. Performed By: #### L 100.0100, L500.2500 #### [facility] [address] [place], [address] ECRCL 79.11 ml/min Normal [facility] Comment on above: Performed By: #### L 100.0100, L500.2500 #### [facility] [address] [place], [address] EST GFR - AA 108 mL/min Normal >60 [facility] Comment on above: Result Comment: Afri can [place] GFR Calc Performed By: #### L 100.0100, L500.2500 #### [facility] [address] [place], [address] GAP 6 Normal 5-15 [facility] Comment on above: Performed By: #### L 100.0100, L500.2500 #### [facility] [address] [place], [address] GFR/1.73 sq M.predicted among non-blacks MDRD (S/P/Bld) [Vol rate/Area] 89 mL/min/{1.73_m2} Normal >60 [facility] Comment on above: Result Comment: Non- GFR Calc Performed By: #### L 100.0100, L500.2500 #### [facility] [address] [place], [address] Glucose [Mass/Vol] 146 mg/dL High 74-106 [facility] Comment on above: Result Comment: Fast ing Glucose result greater than or equal to 126 mg/dL suggests DIABETES MELLITUS per A.D.A. criteria. Performed By: #### L 100.0100, L500.2500 #### [facility] [address] [place], [address] Potassium [Moles/Vol] 4.5 mmol/L Normal 3.5-5.1 [facility] Comment on above: Performed By: #### L 100.0100, L500.2500 #### [facility] [address] [place], [address] Sodium [Moles/Vol] 133 mmol/L Low 136-145 [facility] Comment on above: Performed By: #### L 100.0100, L500.2500 #### [facility] [address] [place], [address] Urea nitrogen [Mass/Vol] 17 mg/dL Normal 7-18 [facility] Comment on above: Performed By: #### L 100.0100, L500.2500 #### [facility] [address] [place], [address] Basophil percentageOrdered B y: Jenna Howell on 12-13-2023 Basophils/100 WBC (Bld) 0.3 % 0-1 [facility] Chloride [Moles/Vol] 104 mmol/L 98-107 [facility] Eosinophils/100 WBC (Bld) 0.0 % 0-5 [facility] Glucose [Mass/Vol] 146 mg/dL 74-106 [facility] Comment on above: Fasting Glucose resu lt greater than or equal to 126 mg/dL suggests DIABETES MELLITUS per A.D.A. criteria. Hemoglobin (Bld) [Mass/Vol] 11.1 g/dL 13.0-16.5 [facility] Monocytes/100 WBC (Bld) 3.2 % 0-10 [facility] Neutrophils (Bld) [#/Vol] 10.6 10*3/uL 2.0-7.7 [facility] Neutrophils/100 WBC (Bld) 79.2 % 47-70 [facility] Potassium [Moles/Vol] 4.5 mmol/L 3.5-5.1 [facility] Sodium [Moles/Vol] 133 mmol/L 136-145 [facility] WBC (Bld) [#/Vol] 13.4 10*3/uL 4.4-11.0 [facility] Basophil percentageOrdered B y: Kwaku Beauchamp on 12-13-2023 Basophil percentage 0 SEEN /hpf 0-5 [facility] Bedside Glucoseon 12-13-2023 FINGERSTICK GLU 146 mg/dL High 74-106 [facility] Comment on above: Result Comment: KASHIF GEMENT OF PATIENT CARE PER NURSING PROTOCOL Performed By: #### L 501.080 #### [facility] [address] [place], [address] FINGERSTICK GLU 143 mg/dL High 74-106 [facility] Comment on above: Result Comment: KASHIF GEMENT OF PATIENT CARE PER NURSING PROTOCOL Performed By: #### L 501.080 #### [facility] [address] [place], [address] FINGERSTICK GLU 137 mg/dL High 74-106 [facility] Comment on above: Result Comment: KASHIF GEMENT OF PATIENT CARE PER NURSING PROTOCOL Performed By: #### L 100.0100, L500.2500 #### [facility] [address] [place], [address] Bilirubin Test strip Ql (U)O rdered By: Kwaku Beauchamp on 12-13-2023 Bilirubin Ql (U) Negative Negative [facility] CBC W/Diff, Automatedon 11-27 Absolute Lymph 2.10 X10 3/uL Normal 0.83-4.51 [facility] Comment on above: Performed By: #### L 100.0100, L500.2500 #### [facility] [address] [place], [address] Absolute Neut 10.6 X10 3/uL High 2.0-7.7 [facility] Comment on above: Performed By: #### L 100.0100, L500.2500 #### [facility] [address] [place], [address] Basophils/100 WBC (Bld) 0.3 % Normal 0-1 [facility] Comment on above: Performed By: #### L 100.0100, L500.2500 #### [facility] [address] [place], [address] Eosinophils/100 WBC (Bld) 0.0 % Normal 0-5 [facility] Comment on above: Performed By: #### L 100.0100, L500.2500 #### [facility] [address] [place], [address] Erythrocyte distribution width (RBC) [Ratio] 13.6 % Normal 11.6-14.6 [facility] Comment on above: Performed By: #### L 100.0100, L500.2500 #### [facility] [address] [place], [address] Hematocrit (Bld) [Volume fraction] 34.6 % Low 40-54 [facility] Comment on above: Performed By: #### L 100.0100, L500.2500 #### [facility] [address] [place], [address] Hemoglobin (Bld) [Mass/Vol] 11.1 g/dL Low 13.0-16.5 [facility] Comment on above: Performed By: #### L 100.0100, L500.2500 #### [facility] [address] [place], [address] IG% 1.700 High 0.0-0.9 [facility] Comment on above: Result Comment: IG% - Immature Granulocytes (promyelocytes, myelocytes and metamyelocytes) > 1% indicates that a LEFT SHIFT is Present. Performed By: #### L 100.0100, L500.2500 #### [facility] [address] [place], [address] Lymphocytes/100 WBC (Bld) 15.6 % Low 19-41 [facility] Comment on above: Performed By: #### L 100.0100, L500.2500 #### [facility] [address] [place], [address] MCH (RBC) [Entitic mass] 29.4 pg Normal 27.0-32.0 [facility] Comment on above: Performed By: #### L 100.0100, L500.2500 #### [facility] [address] [place], [address] MCHC (RBC) [Mass/Vol] 32.1 g/dL Normal 32-36 [facility] Comment on above: Performed By: #### L 100.0100, L500.2500 #### [facility] [address] [place], [address] MCV (RBC) [Entitic vol] 91.5 fL Normal 80-94 [facility] Comment on above: Performed By: #### L 100.0100, L500.2500 #### [facility] [address] [place], [address] Monocytes/100 WBC (Bld) 3.2 % Normal 0-10 [facility] Comment on above: Performed By: #### L 100.0100, L500.2500 #### [facility] [address] [place], [address] Neutrophils/100 WBC (Bld) 79.2 % High 47-70 [facility] Comment on above: Performed By: #### L 100.0100, L500.2500 #### [facility] [address] [place], [address] Nucleated RBC (Bld) [#/Vol] 0 10*3/uL Normal 0-5 [facility] Comment on above: Performed By: #### L 100.0100, L500.2500 #### [facility] [address] [place], [address] Platelet mean volume (Bld) [Entitic vol] 9.6 fL Normal 6.2-12.0 [facility] Comment on above: Performed By: #### L 100.0100, L500.2500 #### [facility] [address] [place], [address] Platelets (Bld) [#/Vol] 330 10*3/uL Normal 150-450 [facility] Comment on above: Performed By: #### L 100.0100, L500.2500 #### [facility] [address] [place], [address] RBC (Bld) [#/Vol] 3.78 10*6/uL Low 4.6-6.2 [facility] Comment on above: Performed By: #### L 100.0100, L500.2500 #### [facility] [address] [place], [address] RDW SD 45.6 fl High 35.1-43.9 [facility] Comment on above: Performed By: #### L 100.0100, L500.2500 #### [facility] [address] [place], [address] WBC (Bld) [#/Vol] 13.4 10*3/uL High 4.4-11.0 [facility] Comment on above: Performed By: #### L 100.0100, L500.2500 #### [facility] [address] [place], [address] Determination of erythrocyte mean corpuscular volume (MCV)Ordered By: Jenna Howell on 12-13-2023 MCV (RBC) [Entitic vol] 91.5 fL 80-94 [facility] Erythrocyte distribution wid th ratioOrdered By: Jenna Howell on 12-13-2023 Erythrocyte distribution width (RBC) [Ratio] 13.6 % 11.6-14.6 [facility] Erythrocyte distribution wid th standard deviationOrdered By: Jenna Howell on 12-13-2023 Erythrocyte distribution width (RBC) [Entitic vol] 45.6 fL 35.1-43.9 [facility] Hematocrit Auto (Bld) [Volum e fraction]Ordered By: Jenna Howell on 12-13-2023 Hematocrit (Bld) [Volume fraction] 34.6 % 40-54 [facility] Immature granulocytes/100 WB C Auto (Bld)Ordered By: Jenna Howell on 12-13-2023 Immature granulocytes/100 WBC (Bld) 1.700 % 0.0-0.9 [facility] Comment on above: IG% - Immature Granu locytes (promyelocytes, myelocytes and metamyelocytes) > 1% indicates that a LEFT SHIFT is Present. Ketones Test strip Ql (U)Ord ered By: Kwaku Beauchamp on 12-13-2023 Ketones Ql (U) Negative Negative [facility] - Chemistry and C hemistry - challengeOrdered By: Jenna Howell on 12-13-2023 CO2 [Moles/Vol] 23.0 mmol/L 21.0-32.0 [facility] Urea nitrogen/Creatinine [Mass ratio] 18.9 mg/mg 10-20 [facility] - Hematology and Cell countsOrdered By: Jenna Howell on 12-13-2023 MCH (RBC) [Entitic mass] 29.4 pg 27.0-32.0 [facility] MCHC (RBC) [Mass/Vol] 32.1 g/dL 32-36 [facility] Nucleated RBC/100 WBC (Bld) [Ratio] 0 % 0-5 [facility] Platelet mean volume (Bld) [Entitic vol] 9.6 fL 6.2-12.0 [facility] Platelets (Bld) [#/Vol] 330 10*3/uL 150-450 [facility] Mucus LM Ql (Urine sed)Order ed By: Kwaku Beauchamp on 12-13-2023 Mucus Ql (Urine sed) 0 SEEN /hpf [facility] Nitrite Test strip Ql (U)Ord ered By: Kwaku Beauchamp on 12-13-2023 Nitrite Ql (U) Negative Negative [facility] No Panel InformationOrdered By: Jenna Howell on 12-13-2023 Estimated Creatinine Clearance Calc 79.11 ml/min [facility] Estimated GFR (MDRD) Amer 108 mL/min >60 [facility] Comment on above: GFR Calc Estimated GFR (MDRD) Non-Af Amer 89 mL/min >60 [facility] Comment on above: Non- GFR Calc No Panel InformationOrdered By: Kwaku Beauchamp on 12-13-2023 Urine RBC 0 SEEN /hpf 0-5 [facility] Protein Test strip Ql (U)Ord ered By: Kwaku Beauchamp on 12-13-2023 Protein Ql (U) 30 mg/dl Negative [facility] RBC Auto (Bld) [#/Vol]Ordere d By: Jenna Howell on 12-13-2023 RBC (Bld) [#/Vol] 3.78 10*6/uL 4.6-6.2 [facility] Serum or plasma calcium omar urement (mass/volume)Ordered By: Jenna Howell on 12-13-2023 Calcium [Mass/Vol] 9.3 mg/dL 8.5-10.1 [facility] Serum or plasma creatinine m easurement (mass/volume)Ordered By: Jenna Howell on 12-13-2023 Creatinine [Mass/Vol] 0.90 mg/dL 0.70-1.30 [facility] Comment on above: The validity of the calculated GFR & GFRAA in patients over 70 years has not been determined. Clinical correlation is essential. Serum or plasma urea nitroge n measurement (mass/volume)Ordered By: Jenna Howell on 12-13-2023 Urea nitrogen [Mass/Vol] 17 mg/dL 7-18 [facility] Squamous epithelial cells de tection in urine sediment by light microscopyOrdered By: Kwaku Beauchamp on 12-13-2023 Epithelial cells.squamous LM Ql (Urine sed) 0 SEEN /hpf 0-5 [facility] Thin prep Papanicolaou smear with manual screeningOrdered By: Aleksandar Gomez on 12-13-2023 Thin prep Papanicolaou smear with manual screening 146 mg/dL 74-106 [facility] Comment on above: MANAGEMENT OF PATIEN T CARE PER NURSING PROTOCOL Thin prep Papanicolaou smear with manual screeningOrdered By: Jenna Howell on 12-13-2023 Thin prep Papanicolaou smear with manual screening 6 5-15 [facility] Urinalysis, Completeon 12-12 BACTERIA 0 SEEN Normal None Seen [facility] Comment on above: Order Comment: CLEAN CATCH Performed By: #### L 400.0001 #### [facility] [address] [place], [address] EPI,SQUAMOUS 0 SEEN Normal 0-5 [facility] Comment on above: Order Comment: CLEAN CATCH Performed By: #### L 400.0001 #### [facility] [address] [place], [address] Mucus Ql (Urine sed) 0 SEEN Normal [facility] Comment on above: Order Comment: CLEAN CATCH Performed By: #### L 400.0001 #### [facility] [address] [place], [address] RBC 0 SEEN Normal 0-5 [facility] Comment on above: Order Comment: CLEAN CATCH Performed By: #### L 400.0001 #### [facility] [address] [place], [address] WBC 0 SEEN Normal 0-5 [facility] Comment on above: Order Comment: CLEAN CATCH Performed By: #### L 400.0001 #### [facility] [address] [place], [address] Urine blood detectionOrdered By: Kwaku Beauchamp on 12-13-2023 RBC Ql (U) 10 /ul Negative [facility] Urine clarityOrdered By: Charles Beauchamp on 12-13-2023 Clarity (U) Clear Clear [facility] Urine color determinationOrd ered By: Kwaku Beauchamp on 12-13-2023 Color (U) Yellow Yellow [facility] Urine glucose detectionOrder ed By: Kwaku Beauchamp on 12-13-2023 Glucose Ql (U) Normal mg/dl Normal [facility] Urine leukocyte esterase det ection by dipstickOrdered By: Kwaku Beauchamp on 12-13-2023 Leukocyte esterase Test strip Ql (U) Negative Negative [facility] Urine pHOrdered By: Kwaku hastings on 12-13-2023 pH (U) 7.0 [pH] 5.0 - 8.0 [facility] Urine sediment bacteria coun t by microscopy (number/high power field)Ordered By: Kwaku Beauchamp on 12-13-2023 Bacteria LM.HPF (Urine sed) [#/Area] 0 /[HPF] None Seen [facility] Urine specific gravity measu rementOrdered By: Kwaku Beauchamp on 12-13-2023 Specific gravity (U) [Rel density] 1.005 1.002-1.030 [facility] Urine urobilinogen measureme ntOrdered By: Kwaku Beauchamp on 12-13-2023 Urobilinogen Ql (U) Normal mg/dl Normal [facility] Ammoniaon 12-12-2023 Ammonia (P) [Moles/Vol] 25.0 umol/L Normal 11-32 [facility] Comment on above: Performed By: #### L 501.080 #### [facility] [address] [place] [address], [id number] Assessment of wrist artery p atency prior to arterial punctureOrdered By: Jenna Howell on 12-12-2023 Arterial patency Wrist artery --pre arterial puncture Positive [facility] Base excessOrdered By: Mohsen Howell on 12-12-2023 Base excess Calc (BldV) [Moles/Vol] -3 mmol/L -2-2 [facility] Basic Metabolic Profile (BMP )on 12-12-2023 BUN/CRE 22.4 RATIO High 10-20 [facility] Comment on above: Performed By: #### L 501.080 #### [facility] [address] [place], [address] CA,Total 8.9 mg/dL Normal 8.5-10.1 [facility] Comment on above: Performed By: #### L 501.080 #### [facility] [address] [place], [address] Chloride [Moles/Vol] 110 mmol/L High 98-107 [facility] Comment on above: Performed By: #### L 501.080 #### [facility] [address] [place], [address] CO2 [Moles/Vol] 23.0 mmol/L Normal 21.0-32.0 [facility] Comment on above: Performed By: #### L 501.080 #### [facility] [address] [place], [address] Creatinine [Mass/Vol] 0.89 mg/dL Normal 0.70-1.30 [facility] Comment on above: Result Comment: The validity of the calculated GFR GFRAA in patients over 70 years has not been determined. Clinical correlation is essential. Performed By: #### L 501.080 #### [facility] [address] [place], [address] ECRCL 78.13 ml/min Normal [facility] Comment on above: Performed By: #### L 501.080 #### [facility] [address] [place], [address] EST GFR - AA 109 mL/min Normal >60 [facility] Comment on above: Result Comment: Afri can [place] GFR Calc Performed By: #### L 501.080 #### [facility] [address] [place], [address] GAP 6 Normal 5-15 [facility] Comment on above: Performed By: #### L 501.080 #### [facility] [address] [place], [address] GFR/1.73 sq M.predicted among non-blacks MDRD (S/P/Bld) [Vol rate/Area] 90 mL/min/{1.73_m2} Normal >60 [facility] Comment on above: Result Comment: Non- GFR Calc Performed By: #### L 501.080 #### [facility] [address] [place], [address] Glucose [Mass/Vol] 175 mg/dL High 74-106 [facility] Comment on above: Result Comment: Fast ing Glucose result greater than or equal to 126 mg/dL suggests DIABETES MELLITUS per A.D.A. criteria. Performed By: #### L 501.080 #### [facility] [address] [place], [address] Potassium [Moles/Vol] 4.3 mmol/L Normal 3.5-5.1 [facility] Comment on above: Performed By: #### L 501.080 #### [facility] [address] [place], [address] Sodium [Moles/Vol] 139 mmol/L Normal 136-145 [facility] Comment on above: Performed By: #### L 501.080 #### [facility] [address] [place], [address] Urea nitrogen [Mass/Vol] 20 mg/dL High 7-18 [facility] Comment on above: Performed By: #### L 501.080 #### [facility] [address] [place], [address] Basophil percentageOrdered B y: Jenna Dante on 12-12-2023 Ammonia (P) [Moles/Vol] 25.0 umol/L 11-32 [facility] Basophil percentage 23 mmol/L [facility] Basophils/100 WBC (Bld) 95 % 95-99 [facility] Bedside Glucoseon 12-12-2023 FINGERSTICK GLU 160 mg/dL High 74-106 [facility] Comment on above: Result Comment: KASHIF GEMENT OF PATIENT CARE PER NURSING PROTOCOL Performed By: #### L 501.080 #### [facility] [address] [place], [address] FINGERSTICK GLU 236 mg/dL High 74-106 [facility] Comment on above: Result Comment: KASHIF GEMENT OF PATIENT CARE PER NURSING PROTOCOL Performed By: #### L 501.080 #### [facility] [address] [place], [address] FINGERSTICK GLU 147 mg/dL High 74-106 [facility] Comment on above: Result Comment: KASHIF GEMENT OF PATIENT CARE PER NURSING PROTOCOL Performed By: #### L 501.080 #### [facility] [address] [place], [address] Blood Gases by [facility] JOSE TEST Positive Normal [facility] Comment on above: Performed By: #### L 9000.0800 #### [facility] [address] [place], [address] Base excess Calc (Bld) [Moles/Vol] -3 mmol/L Low -2 to +2 [facility] Comment on above: Performed By: #### L 9000.0800 #### [facility] [address] [place], [address] Blood Gas Type ART Normal [facility] Comment on above: Performed By: #### L 9000.0800 #### [facility] [address] [place], [address] CO2 [Moles/Vol] 23 mmol/L Normal [facility] Comment on above: Performed By: #### L 9000.0800 #### [facility] [address] [place], [address] FI02 21.0 Normal [facility] Comment on above: Performed By: #### L 9000.0800 #### [facility] [address] [place], [address] HCO3 (Bld) [Moles/Vol] 21.8 mmol/L Low 22-26 [facility] Comment on above: Performed By: #### L 9000.0800 #### [facility] [address] [place], [address] Mode Not entered [facility] Comment on above: Performed By: #### L 9000.0800 #### [facility] [address] [place], [address] O2 Delivery Dev Not entered [facility] Comment on above: Performed By: #### L 9000.0800 #### [facility] [address] [place], [address] pCO2 36.0 mmHg Normal 35-45 [facility] Comment on above: Performed By: #### L 9000.0800 #### [facility] [address] [place], [address] pH (Bld) 7.39 [pH] Normal 7.35-7.45 [facility] Comment on above: Performed By: #### L 9000.0800 #### [facility] [address] [place], [address] PO2 78 mmHG Normal 75-100 [facility] Comment on above: Performed By: #### L 9000.0800 #### [facility] [address] [place], [address] SITE L Radial Normal [facility] Comment on above: Performed By: #### L 9000.0800 #### [facility] [address] [place], [address] SO2 95 Normal 95-99 [facility] Comment on above: Performed By: #### L 9000.0800 #### [facility] [address] [place], [address] Brain/Head without Contrasto n 12-12-2023 Brain/Head without Contrast [facility] [address] [place] [address] Brain/Head without Contrast MR#: [id number] Acct: [id number] Name: FAYE TRINIDAD V Rep #: [id number] : [id number] M [id number] From: Cleve sidhu MD PCP: Dr. Jaylen Win MD Status: ADM IN Study: Brain/Head without Contrast Date of Exam: 11/27 02/19 Exam# [id number] Ordering Dr: Jenna Howell DO [id number] STUDY: CT BRAIN WITHOUT CONTRAST REASON FOR EXAM: Male, 68 years old. Altered MS RADIATION DOSAGE (If Supplied By Facility): CTDIvol = ( 44.99 ) mGy, DLP = ( 812.98 ) mGycm TECHNIQUE: Transaxial CT imaging of the brain was performed without administration of intravenous contrast material. Individualized dose optimization techniques were used for this CT. COMPARISON: Comparison is made with prior study dated March 21, 2018. FINDINGS: Normal soft tissue structures. Normal calvarium. There is mild cerebral atrophy with widening of the extra-axial spaces and ventricular dilatation. There are areas of decreased attenuation within the white matter tracts of the supratentorial brain, consistent with microvascular disease changes. 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 Normal brainstem. Normal cerebellum. There is no intracranial hemorrhage. There are no findings of an acute ischemic infarction. Atherosclerotic calcification of the vertebral arteries and cavernous portions of the internal carotid arteries bilaterally. Pansinusitis. CT/Brain/Head without Contrast IMPRESSION: Chronic involutional changes of the brain. Electronically Signed: Cleve Clarke MD at 13:31 EDT , CC: Dr. Jenna Howell DO; Dr. Jaylen Win MD Slate Cutter: Signed Normal [facility] CBC-Complete Blood Cnt No Di ffon 12-12-2023 Erythrocyte distribution width (RBC) [Ratio] 13.8 % Normal 11.6-14.6 [facility] Comment on above: Performed By: #### L 501.080 #### [facility] [address] [place], [address] Hematocrit (Bld) [Volume fraction] 31.4 % Low 40-54 [facility] Comment on above: Performed By: #### L 501.080 #### [facility] [address] [place], [address] Hemoglobin (Bld) [Mass/Vol] 10.5 g/dL Low 13.0-16.5 [facility] Comment on above: Performed By: #### L 501.080 #### [facility] [address] [place], [address] MCH (RBC) [Entitic mass] 30.5 pg Normal 27.0-32.0 [facility] Comment on above: Performed By: #### L 501.080 #### [facility] [address] [place], [address] MCHC (RBC) [Mass/Vol] 33.4 g/dL Normal 32-36 [facility] Comment on above: Performed By: #### L 501.080 #### [facility] [address] [place], [address] MCV (RBC) [Entitic vol] 91.3 fL Normal 80-94 [facility] Comment on above: Performed By: #### L 501.080 #### [facility] [address] [place], [address] Platelet mean volume (Bld) [Entitic vol] 9.2 fL Normal 6.2-12.0 [facility] Comment on above: Performed By: #### L 501.080 #### [facility] [address] [place], [address] Platelets (Bld) [#/Vol] 274 10*3/uL Normal 150-450 [facility] Comment on above: Performed By: #### L 501.080 #### [facility] [address] [place], [address] RBC (Bld) [#/Vol] 3.44 10*6/uL Low 4.6-6.2 [facility] Comment on above: Performed By: #### L 501.080 #### [facility] [address] [place], [address] RDW SD 46.3 fl High 35.1-43.9 [facility] Comment on above: Performed By: #### L 501.080 #### [facility] [address] [place], [address] WBC (Bld) [#/Vol] 12.1 10*3/uL High 4.4-11.0 [facility] Comment on above: Performed By: #### L 501.080 #### [facility] [address] [place], [address] Measurement, pHOrdered By: Cheri Howell on 12-12-2023 pH (Unsp spec) 7.39 [pH] 7.35-7.45 [facility] No Panel InformationOrdered By: Jenna Howell on 12-12-2023 Arterial Blood Partial Pressure CO2 36.0 mmHg 35-45 [facility] Arterial Blood Partial Pressure O2 78 mmHG 75-100 [facility] Blood Gas Bicarbonate Actual 21.8 mmol/L 22-26 [facility] Blood Gas Oxygen Percent 21.0 [facility] Blood Gas Sample Site L Radial [facility] Blood Gas Specimen Type ART [facility] Blood Gas Vent Mode Not entered [facility] Oxygen Delivery Device Not entered [facility] Urine Cultureon 12-12-2023 URC Culture exhibits no growth. Normal [facility] Comment on above: Performed By: #### L 501.080 #### [facility] [address] [facility] [address] Basophil percentageOrdered B y: Jenna Dante on 12-11-2023 Basophil percentage 2.5 mg/dL 2.5-4.9 [facility] Bilirubin [Mass/Vol] 0.60 mg/dL 0.20-1.00 [facility] Comment on above: For patients on eltr ombopag therapy, use of Dimension [place] TBIL is not recommended. Protein [Mass/Vol] 7.6 g/dL 6.4-8.2 [facility] Bedside Glucoseon 12-11-2023 FINGERSTICK GLU 163 mg/dL High 74-106 [facility] Comment on above: Result Comment: KASHIF GEMENT OF PATIENT CARE PER NURSING PROTOCOL Performed By: #### L 100.0100, L500.2500 #### [facility] [address] [facility] [address] FINGERSTICK GLU 222 mg/dL High 74-106 [facility] Comment on above: Result Comment: KASHIF GEMENT OF PATIENT CARE PER NURSING PROTOCOL Performed By: #### L 501.080 #### [facility] [address] [facility] [address] FINGERSTICK GLU 135 mg/dL High 74-106 [facility] Comment on above: Result Comment: KASHIF GEMENT OF PATIENT CARE PER NURSING PROTOCOL Performed By: #### L 100.0100, L500.2500 #### [facility] [address] [place], [address] FINGERSTICK GLU 148 mg/dL High 74-106 [facility] Comment on above: Result Comment: KASHIF TELLEZ OF PATIENT CARE PER NURSING PROTOCOL Performed By: #### L 501.080 #### [facility] [address] [place], [address] CBC W/Diff, Automatedon - Absolute Lymph 1.41 X10 3/uL Normal 0.83-4.51 [facility] Comment on above: Performed By: #### L 100.0100, L500.2500 #### [facility] [address] [place], [address] Absolute Neut 10.7 X10 3/uL High 2.0-7.7 [facility] Comment on above: Performed By: #### L 100.0100, L500.2500 #### [facility] [address] [place], [address] Basophils/100 WBC (Bld) 0.2 % Normal 0-1 [facility] Comment on above: Performed By: #### L 100.0100, L500.2500 #### [facility] [address] [place], [address] Eosinophils/100 WBC (Bld) 0.0 % Normal 0-5 [facility] Comment on above: Performed By: #### L 100.0100, L500.2500 #### [facility] [address] [place], [address] Erythrocyte distribution width (RBC) [Ratio] 13.3 % Normal 11.6-14.6 [facility] Comment on above: Performed By: #### L 100.0100, L500.2500 #### [facility] [address] [place], [address] Hematocrit (Bld) [Volume fraction] 32.4 % Low 40-54 [facility] Comment on above: Performed By: #### L 100.0100, L500.2500 #### [facility] [address] [place], [address] Hemoglobin (Bld) [Mass/Vol] 10.5 g/dL Low 13.0-16.5 [facility] Comment on above: Performed By: #### L 100.0100, L500.2500 #### [facility] [address] [place], [address] IG% 0.600 Normal 0.0-0.9 [facility] Comment on above: Result Comment: IG% - Immature Granulocytes (promyelocytes, myelocytes and metamyelocytes) > 1% indicates that a LEFT SHIFT is Present. Performed By: #### L 100.0100, L500.2500 #### [facility] [address] [place], [address] Lymphocytes/100 WBC (Bld) 11.3 % Low 19-41 [facility] Comment on above: Performed By: #### L 100.0100, L500.2500 #### [facility] [address] [place], [address] MCH (RBC) [Entitic mass] 29.3 pg Normal 27.0-32.0 [facility] Comment on above: Performed By: #### L 100.0100, L500.2500 #### [facility] [address] [place], [address] MCHC (RBC) [Mass/Vol] 32.4 g/dL Normal 32-36 [facility] Comment on above: Performed By: #### L 100.0100, L500.2500 #### [facility] [address] [place], [address] MCV (RBC) [Entitic vol] 90.5 fL Normal 80-94 [facility] Comment on above: Performed By: #### L 100.0100, L500.2500 #### [facility] [address] [place], [address] Monocytes/100 WBC (Bld) 2.6 % Normal 0-10 [facility] Comment on above: Performed By: #### L 100.0100, L500.2500 #### [facility] [address] [place], [address] Neutrophils/100 WBC (Bld) 85.3 % High 47-70 [facility] Comment on above: Performed By: #### L 100.0100, L500.2500 #### [facility] [address] [place], [address] Nucleated RBC (Bld) [#/Vol] 0 10*3/uL Normal 0-5 [facility] Comment on above: Performed By: #### L 100.0100, L500.2500 #### [facility] [address] [place], [address] Platelet mean volume (Bld) [Entitic vol] 9.8 fL Normal 6.2-12.0 [facility] Comment on above: Performed By: #### L 100.0100, L500.2500 #### [facility] [address] [place], [address] Platelets (Bld) [#/Vol] 241 10*3/uL Normal 150-450 [facility] Comment on above: Performed By: #### L 100.0100, L500.2500 #### [facility] [address] [place], [address] RBC (Bld) [#/Vol] 3.58 10*6/uL Low 4.6-6.2 [facility] Comment on above: Performed By: #### L 100.0100, L500.2500 #### [facility] [address] [place], [address] RDW SD 44.3 fl High 35.1-43.9 [facility] Comment on above: Performed By: #### L 100.0100, L500.2500 #### [facility] [address] [place], [address] WBC (Bld) [#/Vol] 12.5 10*3/uL High 4.4-11.0 [facility] Comment on above: Performed By: #### L 100.0100, L500.2500 #### [facility] [address] [place], [address] CDIFF (PCR)on 12-11-2023 CDIFF Is the patient receiving laxatives? N New/unexplained onset of 3 or more stools in past 24 hrs? Y Reference Range: Negative CepIPICOid GeneXpert: polymerase chain reaction (PCR) 027 027 NAP1-B1 Presumptive Negative *for epidemiolologic??? use C. Diff PCR Negative- No toxigenic C. Diff Detected Normal [facility] Comment on above: Performed By: #### L 501.080 #### [facility] [address] [place], [address] Comprehensive Metabolic Prof ilon 12-11-2023 Albumin [Mass/Vol] 2.9 g/dL Low 3.2-5.0 [facility] Comment on above: Performed By: #### L 100.0100, L500.2500 #### [facility] [address] [place], [address] Albumin/Globulin [Mass ratio] 0.6 {ratio} Low 0.9-2.4 [facility] Comment on above: Performed By: #### L 100.0100, L500.2500 #### [facility] [address] [place], [address] ALK P 85 U/L Normal 45-117 [facility] Comment on above: Performed By: #### L 100.0100, L500.2500 #### [facility] [address] [place], [address] ALT [Catalytic activity/Vol] 28 U/L Normal 16-61 [facility] Comment on above: Performed By: #### L 100.0100, L500.2500 #### [facility] [address] [place], [address] AST [Catalytic activity/Vol] 27 U/L Normal 15-37 [facility] Comment on above: Performed By: #### L 100.0100, L500.2500 #### [facility] [address] [place], [address] Bilirubin [Mass/Vol] 0.60 mg/dL Normal 0.20-1.00 [facility] Comment on above: Result Comment: For patients on eltrombopag therapy, use of Dimension [place] TBIL is not recommended. Performed By: #### L 100.0100, L500.2500 #### [facility] [address] [place], [address] BUN/CRE 17.0 RATIO Normal 10-20 [facility] Comment on above: Performed By: #### L 100.0100, L500.2500 #### [facility] [address] [place], [address] CA,Total 8.8 mg/dL Normal 8.5-10.1 [facility] Comment on above: Performed By: #### L 100.0100, L500.2500 #### [facility] [address] [place], [address] Chloride [Moles/Vol] 103 mmol/L Normal 98-107 [facility] Comment on above: Performed By: #### L 100.0100, L500.2500 #### [facility] [address] [place], [address] CO2 [Moles/Vol] 23.0 mmol/L Normal 21.0-32.0 [facility] Comment on above: Performed By: #### L 100.0100, L500.2500 #### [facility] [address] [place], [address] Creatinine [Mass/Vol] 1.00 mg/dL Normal 0.70-1.30 [facility] Comment on above: Result Comment: The validity of the calculated GFR GFRAA in patients over 70 years has not been determined. Clinical correlation is essential. Performed By: #### L 100.0100, L500.2500 #### [facility] [address] [place], [address] ECRCL 71.31 ml/min Normal [facility] Comment on above: Performed By: #### L 100.0100, L500.2500 #### [facility] [address] [place], [address] EST GFR - AA 96 mL/min Normal >60 [facility] Comment on above: Result Comment: Afri can [place] GFR Calc Performed By: #### L 100.0100, L500.2500 #### [facility] [address] [place], [address] GAP 10 Normal 5-15 [facility] Comment on above: Performed By: #### L 100.0100, L500.2500 #### [facility] [address] [place], [address] GFR/1.73 sq M.predicted among non-blacks MDRD (S/P/Bld) [Vol rate/Area] 79 mL/min/{1.73_m2} Normal >60 [facility] Comment on above: Result Comment: Non- GFR Calc Performed By: #### L 100.0100, L500.2500 #### [facility] [address] [place], [address] Globulin (S) [Mass/Vol] 4.7 g/dL High 2.2-4.2 [facility] Comment on above: Performed By: #### L 100.0100, L500.2500 #### [facility] [address] [place], [address] Glucose [Mass/Vol] 132 mg/dL High 74-106 [facility] Comment on above: Result Comment: Fast ing Glucose result greater than or equal to 126 mg/dL suggests DIABETES MELLITUS per A.D.A. criteria. Performed By: #### L 100.0100, L500.2500 #### [facility] [address] [place], [address] Potassium [Moles/Vol] 4.1 mmol/L Normal 3.5-5.1 [facility] Comment on above: Performed By: #### L 100.0100, L500.2500 #### [facility] [address] [place], [address] Sodium [Moles/Vol] 136 mmol/L Normal 136-145 [facility] Comment on above: Performed By: #### L 100.0100, L500.2500 #### [facility] [address] [place], [address] T PROT 7.6 g/dL Normal 6.4-8.2 [facility] Comment on above: Performed By: #### L 100.0100, L500.2500 #### [facility] [address] [place], [address] Urea nitrogen [Mass/Vol] 17 mg/dL Normal 7-18 [facility] Comment on above: Performed By: #### L 100.0100, L500.2500 #### [facility] [address] [place], [address] Culture, urineOrdered By: Emmanuel Corley on 12-11-2023 Bacteria identified Cx Nom (U) Culture exhibits no growth. [facility] ENTERIC PATHOGEN PANEL STOOL on 12-11-2023 EP PANEL Is the patient receiving laxatives? N New/unexplained onset of 3 or more stools in past 24 hrs? Y Normal Reference Range = Not Detected GI pathogens Pnl Stl PALLAVI+probe Not detected for Campylobacter group, Salmonella species, Shigella species, Vibrio Group, Yersinia enterocolitica, EHEC (Shiga Toxin 1, Shiga Toxin 2), Norovirus Gl/Gll, and Rotavirus A. Other common stool pathogens are not detected on this panel include: Aeromonas/Plesiomo juan jose or parasites. Order testing for these organisms separately if suspected. This is an amplified DNA test which makes it both specific and sensitive. CAMPYLOBACTER Not Detected Norovirus Not Detected Rotavirus Not Detected Salmonella Not Detected Shiga Toxin Not Detected Shigella sp. Not Detected VIBRIO Not Detected Yersinia Not Detected Normal [facility] Comment on above: Performed By: #### L 501.080 #### [facility] [address] [place], [place], [address] Laboratory - Chemistry and C hemistry - challengeOrdered By: Jenna Howell on 12-11-2023 Albumin/Globulin [Mass ratio] 0.6 {ratio} 0.9-2.4 [facility] ALP [Catalytic activity/Vol] 85 U/L 45-117 [facility] ALT [Catalytic activity/Vol] 28 U/L 16-61 [facility] Globulin (S) [Mass/Vol] 4.7 g/dL 2.2-4.2 [facility] Magnesium [Mass/Vol] 1.7 mg/dL 1.6-2.6 [facility] Legionella Antigen Urineon 0 12-11-2023 LEGU Only Recommended for severe cases of pneumonia URINE, CLEAN CATCH Legionella Antigen result interpretation: L pneumo Ag Ur Ql Negative Presumptive negative for Legionella pneumophila serogroup 1 antigen in urine, suggesting no recent or current infection. Legionella Ag, Urine Negative (See interpretation below) Normal [facility] Comment on above: Performed By: #### L 501.080 #### [facility] [address] [place], [address] Magnesiumon 12-11-2023 Magnesium [Mass/Vol] 1.7 mg/dL Normal 1.6-2.6 [facility] Comment on above: Performed By: #### L 100.0100, L500.2500 #### [facility] [address] [place], [place], [address] No Panel InformationOrdered By: Jenna Howell on 12-11-2023 Streptococcus pneumoniae Antigen (M [facility] Phosphoruson 12-11-2023 Phosphate [Mass/Vol] 2.5 mg/dL Normal 2.5-4.9 [facility] Comment on above: Performed By: #### L 100.0100, L500.2500 #### [facility] [address] [place], [address] Serum or plasma thyroid stim ulating hormone (TSH) measurement (units/volume)Ordered By: Jenna Howell on 12-11-2023 TSH Qn 0.65 uIU/mL 0.358-3.74 [facility] Stool Occult Blood iFOBon STOB Negative Normal [facility] Comment on above: Performed By: #### L 501.080 #### [facility] [address] [place], [place], [address] Stool gastrointestinal hemog lobin detection by immunologic methodOrdered By: Jenna Howell on 12-11-2023 Lower GI hemoglobin IA Ql (Stl) [facility] Strep pneumoniae Antig(UR,CS F)on 12-11-2023 STPAG Comments: Only Recommended for severe cases of pneumonia URINE INTERPRETATION Negative Urine Presumptive negative for pneumococcal pneumonia, suggesting no current or recent pneumococcal infection. Infection due to S pneumoniae cannot be ruled out since the antigen present in the sample may be below the detection limit of the test. Strep pneumo Test Negative URINE (See interpretation below) Normal [facility] Comment on above: Performed By: #### L 501.080 #### [facility] [address] [place], [place], [address] Thin prep Papanicolaou smear with manual screeningOrdered By: Jenna Howell on 12-11-2023 Thin prep Papanicolaou smear with manual screening 2.9 g/dL 3.2-5.0 [facility] Thin prep Papanicolaou smear with manual screening 27 U/L 15-37 [facility] Thyroid Stim Hormone (TSH)on 12-11-2023 TSH 0.65 uIU/mL Normal 0.358-3.74 [facility] Comment on above: Performed By: #### L 100.0100, L500.2500 #### [facility] [address] [place], [address] Urinalysis, Completeon 12-10 BACTERIA 0 SEEN Normal None Seen [facility] Comment on above: Order Comment: COLLE CTOR TO SPECIFY Performed By: #### L 501.080 #### [facility] [address] [place], [address] EPI,SQUAMOUS 0 SEEN Normal 0-5 [facility] Comment on above: Order Comment: COLLE CTOR TO SPECIFY Performed By: #### L 501.080 #### [facility] [address] [place], [address] Mucus Ql (Urine sed) 0 SEEN Normal [facility] Comment on above: Order Comment: COLLE CTOR TO SPECIFY Performed By: #### L 501.080 #### [facility] [address] [place], [address] RBC 0 SEEN Normal [address] Comment on above: Order Comment: COLLE CTOR TO SPECIFY Performed By: #### L 501.080 #### [facility] [address] [place], [address] WBC 0 SEEN Normal 0-[address] [place] [address] Comment on above: Order Comment: COLLE CTOR TO SPECIFY Performed By: #### L 501.080 #### [facility] [address] [place], [address] 12 Lead EKGon 12-10-2023 12 Lead EKG [facility] [address] [place] [address] 12 Lead EKG 12/10/23 0856 MR#: [id number] Acct: [id number] Name: FAYE TRINIDAD V Rep #: [id number] : [id number] From: Evan Boudreaux MD Attending Dr: Dr. Jenna Howell DO Status: ADM I N Ordering Dr: Geronimo Corley MD Date: 12/10/23 Location: MS3 Sex: M C Admitted: 12/10/23 Test Reason : SOB Blood Pressure : / mmHG Vent. Rate : 090 BPM Atrial Rate : 090 BPM P-R Int : 154 ms QRS Dur : 130 ms QT Int : 356 ms P-R-T Axes : 065 -78 032 degrees QTc Int : 435 ms Normal sinus rhythm Left axis deviation Right bundle branch block Abnormal ECG Confirmed by EVAN BOUDREAUX MD ([id number]), publishing editor ASIF HUERTA ([id number]) on 12/11/2023 6:24:02 AM Referred By: JONATHON/SHAINA Confirmed By:EVAN BOUDREAUX MD 12/11/23623 Date Evan Boudreaux MD CC: Dr. Geronimo Corley MD; Dr. Jenna Howell DO; Dr. Jaylen Win MD Signed Normal [facility] Absolute lymphocyte countOrd ered By: Geronimo Corley on 12-10-2023 Lymphocytes Auto (Unsp spec) [#/Vol] 0.41 10*3/uL 0.83-4.51 [facility] Activated partial thrombopla stin time (aPTT) in platelet poor plasma by coagulation aOrdered By: Geronimo Corley on 12-10-2023 aPTT Coag (PPP) [Time] 32.4 s 24.1-36.2 [facility] Automated lymphocyte count a s percentage of total leukocytesOrdered By: Geronimo Corley on 12-10-2023 Lymphocytes/100 WBC Auto (Unsp spec) 4.5 % 19-41 [facility] Basophil percentageOrdered B y: Geronimo Corley on 12-10-2023 Lactate [Moles/Vol] 2.0 mmol/L 0.4-2.0 [facility] Comment on above: Critical Result(s) C alled at: 14:22:58 12/10/2023 by: Alessia Kaur to Gary. Results read back by same. Basophils/100 WBC (Bld) 0.2 % 0-1 [facility] Bilirubin [Mass/Vol] 0.60 mg/dL 0.20-1.00 [facility] Comment on above: For patients on eltr ombopag therapy, use of Dimension [place] TBIL is not recommended. Chloride [Moles/Vol] 97 mmol/L 98-107 [facility] Eosinophils/100 WBC (Bld) 0.0 % 0-5 [facility] Glucose [Mass/Vol] 135 mg/dL 74-106 [facility] Comment on above: Fasting Glucose resu lt greater than or equal to 126 mg/dL suggests DIABETES MELLITUS per A.D.A. criteria. Hemoglobin (Bld) [Mass/Vol] 10.5 g/dL 13.0-16.5 [facility] Lactate [Moles/Vol] 2.0 mmol/L 0.4-2.0 [facility] Comment on above: Critical Result(s) C alled at: 10:04:47 12/10/2023 by: Alessia Kaur to Cain. Results read back by same. Monocytes/100 WBC (Bld) 7.1 % 0-10 [facility] Neutrophils (Bld) [#/Vol] 8.0 10*3/uL 2.0-7.7 [facility] Neutrophils/100 WBC (Bld) 87.8 % 47-70 [facility] Potassium [Moles/Vol] 4.3 mmol/L 3.5-5.1 [facility] Protein [Mass/Vol] 7.4 g/dL 6.4-8.2 [facility] Sodium [Moles/Vol] 131 mmol/L 136-145 [facility] WBC (Bld) [#/Vol] 9.1 10*3/uL 4.4-11.0 [facility] Bedside Glucoseon 12-10-2023 FINGERSTICK GLU 107 mg/dL High 74-106 [facility] Comment on above: Result Comment: KASHIF TELLEZ OF PATIENT CARE PER NURSING PROTOCOL Performed By: #### L 501.080 #### [facility] [address] [place], [address] CBC W/Diff, Automatedon 03-10 01-2023 Absolute Lymph 0.41 X10 3/uL Low 0.83-4.51 [facility] Comment on above: Performed By: #### L 503.6005, L300.4310, L300.3900, L500.4050, L100.0100 #### [facility] [address] [place], [address] Absolute Neut 8.0 X10 3/uL High 2.0-7.7 [facility] Comment on above: Performed By: #### L 503.6005, L300.4310, L300.3900, L500.4050, L100.0100 #### [facility] [address] [place], [address] Basophils/100 WBC (Bld) 0.2 % Normal 0-1 [facility] Comment on above: Performed By: #### L 503.6005, L300.4310, L300.3900, L500.4050, L100.0100 #### [facility] [address] [place], [address] Eosinophils/100 WBC (Bld) 0.0 % Normal 0-5 [facility] Comment on above: Performed By: #### L 503.6005, L300.4310, L300.3900, L500.4050, L100.0100 #### [facility] [address] [place], [address] Erythrocyte distribution width (RBC) [Ratio] 13.4 % Normal 11.6-14.6 [facility] Comment on above: Performed By: #### L 503.6005, L300.4310, L300.3900, L500.4050, L100.0100 #### [facility] [address] [place], [address] Hematocrit (Bld) [Volume fraction] 31.6 % Low 40-54 [facility] Comment on above: Performed By: #### L 503.6005, L300.4310, L300.3900, L500.4050, L100.0100 #### [facility] [address] [place], [address] Hemoglobin (Bld) [Mass/Vol] 10.5 g/dL Low 13.0-16.5 [facility] Comment on above: Performed By: #### L 503.6005, L300.4310, L300.3900, L500.4050, L100.0100 #### [facility] [address] [place], [address] IG% 0.400 Normal 0.0-0.9 [facility] Comment on above: Result Comment: IG% - Immature Granulocytes (promyelocytes, myelocytes and metamyelocytes) > 1% indicates that a LEFT SHIFT is Present. Performed By: #### L 503.6005, L300.4310, L300.3900, L500.4050, L100.0100 #### [facility] [address] [place], [address] Lymphocytes/100 WBC (Bld) 4.5 % Low 19-41 [facility] Comment on above: Performed By: #### L 503.6005, L300.4310, L300.3900, L500.4050, L100.0100 #### [facility] [address] [place], [address] MCH (RBC) [Entitic mass] 30.2 pg Normal 27.0-32.0 [facility] Comment on above: Performed By: #### L 503.6005, L300.4310, L300.3900, L500.4050, L100.0100 #### [facility] [address] [place], [address] MCHC (RBC) [Mass/Vol] 33.2 g/dL Normal 32-36 [facility] Comment on above: Performed By: #### L 503.6005, L300.4310, L300.3900, L500.4050, L100.0100 #### [facility] [address] [place], [address] MCV (RBC) [Entitic vol] 90.8 fL Normal 80-94 [facility] Comment on above: Performed By: #### L 503.6005, L300.4310, L300.3900, L500.4050, L100.0100 #### [facility] [address] [place], [address] Monocytes/100 WBC (Bld) 7.1 % Normal 0-10 [facility] Comment on above: Performed By: #### L 503.6005, L300.4310, L300.3900, L500.4050, L100.0100 #### [facility] [address] [place], [address] Neutrophils/100 WBC (Bld) 87.8 % High 47-70 [facility] Comment on above: Performed By: #### L 503.6005, L300.4310, L300.3900, L500.4050, L100.0100 #### [facility] [address] [place], [address] Nucleated RBC (Bld) [#/Vol] 0 10*3/uL Normal 0-5 [facility] Comment on above: Performed By: #### L 503.6005, L300.4310, L300.3900, L500.4050, L100.0100 #### [facility] [address] [place], [address] Platelet mean volume (Bld) [Entitic vol] 9.0 fL Normal 6.2-12.0 [facility] Comment on above: Performed By: #### L 503.6005, L300.4310, L300.3900, L500.4050, L100.0100 #### [facility] [address] [place], [address] Platelets (Bld) [#/Vol] 233 10*3/uL Normal 150-450 [facility] Comment on above: Performed By: #### L 503.6005, L300.4310, L300.3900, L500.4050, L100.0100 #### [facility] [address] [place], [address] RBC (Bld) [#/Vol] 3.48 10*6/uL Low 4.6-6.2 [facility] Comment on above: Performed By: #### L 503.6005, L300.4310, L300.3900, L500.4050, L100.0100 #### [facility] [address] [place], [address] RDW SD 44.8 fl High 35.1-43.9 [facility] Comment on above: Performed By: #### L 503.6005, L300.4310, L300.3900, L500.4050, L100.0100 #### [facility] [address] [place], [address] WBC (Bld) [#/Vol] 9.1 10*3/uL Normal 4.4-11.0 [facility] Comment on above: Performed By: #### L 503.6005, L300.4310, L300.3900, L500.4050, L100.0100 #### [facility] [address] [place], [address] Chest 1 View (Portable)on Chest 1 View (Portable) [facility] Imaging Services [address] [place] [address] Chest 1 View (Portable) MR#: [id number] Acct: [id number] Name: FAYE TRINIDAD V Rep #: [id number] : 1955 M 68 From: Cleve sidhu MD PCP: Dr. Jaylen Win MD Status: ADM IN Study: Chest 1 View (Portable) Date of Exam: 12/10/23 Exam# [id number] Ordering Dr: Geronimo Corley MD [id number] STUDY: X-RAY CHEST REASON FOR EXAM: Male, 68 years old. Cough TECHNIQUE: Single AP portable view of the chest. COMPARISON: Comparison is made with prior study dated March 21, 2018. FINDINGS: EKG electrodes are seen. Patchy left perihilar and left lower lobe infiltrate. There is no demonstrated pleural abnormality. Normal size heart. Normal mediastinum and ruben. Normal visualized pulmonary arteries. Normal visualized aortic arch and descending thoracic aorta. There are diffuse degenerative changes of the visualized thoracic spine. Normal visualized ribs, clavicles, and shoulders. There is no demonstrated abnormality of the visualized soft tissue structures of the upper abdomen. RAD/Chest 1 View (Portable) IMPRESSION: Patchy left perihilar and left lower lobe infiltrate. Electronically Signed: Cleve Clarke MD at 10:15 EDT , CC: Dr. Geronimo Corley MD; Dr. Jaylen Win MD Slate Cutter: Signed Normal [facility] Comprehensive Metabolic Prof ilon 12-10-2023 Albumin [Mass/Vol] 3.1 g/dL Low 3.2-5.0 [facility] Comment on above: Performed By: #### L 501.080 #### [facility] [address] [place], [address] Albumin/Globulin [Mass ratio] 0.7 {ratio} Low 0.9-2.4 [facility] Comment on above: Performed By: #### L 501.080 #### [facility] [address] [place], [address] ALK P 88 U/L Normal 45-117 [facility] Comment on above: Performed By: #### L 501.080 #### [facility] [address] [place], [address] ALT [Catalytic activity/Vol] 31 U/L Normal 16-61 [facility] Comment on above: Performed By: #### L 501.080 #### [facility] [address] [place], [address] AST [Catalytic activity/Vol] 36 U/L Normal 15-37 [facility] Comment on above: Performed By: #### L 501.080 #### [facility] [address] [place], [address] Bilirubin [Mass/Vol] 0.60 mg/dL Normal 0.20-1.00 [facility] Comment on above: Result Comment: For patients on eltrombopag therapy, use of Dimension [place] TBIL is not recommended. Performed By: #### L 501.080 #### [facility] [address] [place], [address] BUN/CRE 19.0 RATIO Normal 10-20 [facility] Comment on above: Performed By: #### L 501.080 #### [facility] [address] [place], [address] CA,Total 8.8 mg/dL Normal 8.5-10.1 [facility] Comment on above: Performed By: #### L 501.080 #### [facility] [address] [place], [address] Chloride [Moles/Vol] 97 mmol/L Low 98-107 [facility] Comment on above: Performed By: #### L 501.080 #### [facility] [address] [place], [address] CO2 [Moles/Vol] 26.0 mmol/L Normal 21.0-32.0 [facility] Comment on above: Performed By: #### L 501.080 #### [facility] [address] [place], [address] Creatinine [Mass/Vol] 1.42 mg/dL High 0.70-1.30 [facility] Comment on above: Result Comment: The validity of the calculated GFR GFRAA in patients over 70 years has not been determined. Clinical correlation is essential. Performed By: #### L 501.080 #### [facility] [address] [place], [address] ECRCL 50.22 ml/min Normal [facility] Comment on above: Performed By: #### L 501.080 #### [facility] [address] [place], [address] EST GFR - AA 64 mL/min Normal >60 [facility] Comment on above: Result Comment: Afri can Nam[place]ian GFR Calc Performed By: #### L 501.080 #### [facility] [address] [place], [address] GAP 8 Normal 5-15 [facility] Comment on above: Performed By: #### L 501.080 #### [facility] [address] [place], [address] GFR/1.73 sq M.predicted among non-blacks MDRD (S/P/Bld) [Vol rate/Area] 53 mL/min/{1.73_m2} Low >60 [facility] Comment on above: Result Comment: Non- GFR Calc Performed By: #### L 501.080 #### [facility] [address] [place], [address] Globulin (S) [Mass/Vol] 4.3 g/dL High 2.2-4.2 [facility] Comment on above: Performed By: #### L 501.080 #### [facility] [address] [place], [address] Glucose [Mass/Vol] 135 mg/dL High 74-106 [facility] Comment on above: Result Comment: Fast ing Glucose result greater than or equal to 126 mg/dL suggests DIABETES MELLITUS per A.D.A. criteria. Performed By: #### L 501.080 #### [facility] [address] [place], [address] Potassium [Moles/Vol] 4.3 mmol/L Normal 3.5-5.1 [facility] Comment on above: Performed By: #### L 501.080 #### [facility] [address] [place], [address] Sodium [Moles/Vol] 131 mmol/L Low 136-145 [facility] Comment on above: Performed By: #### L 501.080 #### [facility] [address] [place], [address] T PROT 7.4 g/dL Normal 6.4-8.2 [facility] Comment on above: Performed By: #### L 501.080 #### [facility] [address] [place], [address] Urea nitrogen [Mass/Vol] 27 mg/dL High 7-18 [facility] Comment on above: Performed By: #### L 501.080 #### [facility] [address] [place], [address] Determination of erythrocyte mean corpuscular volume (MCV)Ordered By: Geronimo Corley on 12-10-2023 MCV (RBC) [Entitic vol] 90.8 fL 80-94 [facility] Emergency Department Summary on 12-10-2023 Emergency Department Summary [facility] Medical Records Department [address] [place] [address] Emergency Department Summary 12/10/23 MR#: [id number] Acct: [id number] Name: FAYE TRINIDAD V Rep #: [id number] : 1955 68 From: Geronimo Corley MD PCP: Dr. Jaylen Win MD Status:ADM IN Location: [place] [address] HPI History of Present Illness Chief Complaint: Shortness of Breath Informant: patient and EMS Onset/Context/Angelo keon Onset: Today Context: gradual Timing: Continuous Current Severity: Moderate Maximum Severity: Moderate Associated Symptoms cough Chest Pain: Positive for None Narrative Narrative: 68-year-old male extensive past medical history of COPD, CHF, diabetes and Lynn's palsy. He is currently resides at [facility]. Reportedly today he had a room air pulse ox of 79% and it jumped up to 96% on 2 L. He was given a breathing treatment prior to arrival. Patient states he has not felt well for a week. He denies any fever but states he said a cough with nausea, vomiting and diarrhea. PE Risk Factors: Negative for Cancer, OCP + Smoking + > 35, Prior DVT or PE, Recent surgery or Recent travel Prior similar symptoms: No Recent Illness/Hospitaliz ation: No PFSH PFS Medical History (Updated 12/10/23 @ 11:[address] Jenna Howell DO) Diabetes mellitus type II GERD History of Lynn's palsy History of COPD History of diabetes mellitus Hypertension Hypothyroidism Schizophrenia Home Medications acetaminophen 500 mg tablet 500 mg PO TID 03/20/14 [History Last Taken Unknown] aspirin 81 mg chewable tablet 81 mg PO DAILY@0800 03/20/14 [History Last Taken Unknown] benztropine 2 mg tablet 1 mg PO DAILY 03/20/14 [History Last Taken Unknown] carbamazepine 200 mg tablet (Tegretol) 200 mg PO 4X/DAY 03/20/14 [History Last Taken Unknown] clozapine 100 mg tablet (Clozaril) 100 mg PO BID 03/20/14 [History Last Taken Unknown] clozapine 200 mg tablet 500 mg PO QHS 03/20/14 [History Last Taken Unknown] duloxetine 20 mg capsule,delayed release 20 mg PO DAILY 03/20/14 [History Last Taken Unknown] ergocalciferol (vitamin D2) 1,250 mcg (50,000 unit) capsule (Vitamin D2) 50,000 unit PO Q7D 03/20/14 [History Last Taken Unknown] famotidine 20 mg tablet 20 mg PO BID 03/20/14 [History Last Taken Unknown] fluticasone 250 mcg-salmeterol 50 mcg/dose blistr powdr for inhalation (Advair Diskus) 1 puff inhalation BID 03/20/14 [History Last Taken Unknown] folic acid 800 mcg tablet 1 mg PO DAILY 03/20/14 [History Last Taken Unknown] furosemide 40 mg tablet 20 mg PO DAILY 03/20/14 [History Last Taken Unknown] levothyroxine 75 mcg tablet 75 mcg PO DAILY 03/20/14 [History Last Taken Unknown] lisinopril 2.5 mg tablet 2.5 mg PO DAILY 03/20/14 [History Last Taken Unknown] lorazepam 0.5 mg tablet 1 mg PO TID 03/20/14 [History Last Taken Unknown] metformin 500 mg tablet 500 mg PO BIDCM 03/20/14 [History Last Taken Unknown] metoprolol succinate 25 mg tablet,extended release 24 hr 12.5 mg PO DAILY 03/20/14 [History Last Taken Unknown] olanzapine 20 mg tablet (Zyprexa) 15 mg PO DAILY 03/20/14 [History Last Taken Unknown] omega-3 fatty acids-fish oil 340 mg-1,000 mg capsule (Fish Oil) 1 ea PO DAILY 03/20/14 [History Last Taken Unknown] simvastatin 40 mg tablet 40 mg PO QHS 03/20/14 [History Last Taken Unknown] albuterol sulfate 90 mcg/actuation aerosol inhaler (ProAir HFA) 2 puff inhalation Q4H PRN PRN Wheezing 03/21/14 [History Last Taken Unknown] albuterol sulfate 90 mcg/actuation aerosol inhaler (Ventolin HFA) 2 puff inhalation Q3H PRN Wheezing 03/21/14 [History Last Taken Unknown] aluminum-mag hydroxide-simethic one 400 mg-400 mg-40 mg/5 mL oral susp (Mag-Al Plus Extra Strength) 30 ml PO Q4H PRN PRN Indigestion 03/21/14 [History Last Taken Unknown] magnesium hydroxide 400 mg/5 mL oral suspension 30 ml PO DAILY PRN PRN Constipation 03/21/14 [History Last Taken Unknown] tramadol 50 mg tablet 50 mg PO Q6H PRN PRN Pain 03/21/14 [History Last Taken Unknown] calcium carbonate 500 mg calcium (1,250 mg) tablet 500 mg PO BID 03/21/18 [History Last Taken Unknown] insulin glargine 100 unit/mL subcutaneous solution (Lantus U-100 Insulin) 5 unit subcut QHS 03/21/18 [History Last Taken Unknown] montelukast 10 mg tablet 10 mg PO DAILY 03/21/18 [History Last Taken Unknown] sodium chloride 1 gram tablet 1 g PO BID 03/21/18 [History Last Taken Unknown] tamsulosin 0.4 mg capsule 0.4 mg PO DAILY 03/21/18 [History Last Taken Unknown] albuterol sulfate 2.5 mg/3 mL (0.083 %) solution for nebulization 2.5 mg inhalation Q4H PRN shortness of breath or wheezing 12/10/23 [History Last Taken Unknown] Allergy/AdvReac Type Severity Reaction Status Date / Time No Known Allergies Allergy Verified 12/10/23 09:00 Social History Smoking Status: Light Smoker (<10/day) ROS ROS ED (more content not included)... Normal [facility] Erythrocyte distribution wid th ratioOrdered By: Geronimo Corley on 12-10-2023 Erythrocyte distribution width (RBC) [Ratio] 13.4 % 11.6-14.6 [facility] Erythrocyte distribution wid th standard deviationOrdered By: Geronimo Corley on 12-10-2023 Erythrocyte distribution width (RBC) [Entitic vol] 44.8 fL 35.1-43.9 [facility] Ferritinon 12-10-2023 Ferritin [Mass/Vol] 83 ng/mL Normal 26-388 [facility] Comment on above: Performed By: #### L 501.080 #### [facility] [place], [address] H AND P Exam - Hospitaliston 12-10-2023 H&P Exam - Hospitalist [facility] Medical Records Department [address] [place] [address] H P Exam - Hospitalist 12/10/23 1059 MR#: [id number] Acct: [id number] Name: FAYE TRINIDAD V Rep #: [id number] : 1955 68 From: Jenna Howell DO PCP: Dr. Jaylen Win MD Status:ADM IN Location: [facility] [id number] HPI - General General Date of Admission: 12/10/23 Date of Service: 12/10/23 Chief Complaint: Shortness of breath HPI Narrative FAYE TRINIDAD, is a 68 M who presented to the emergency department at [facility] on 12/10/2023 with shortness of breath. He is currently a resident at [facility] and they have an outbreak of influenza. Per report from [facility] he had a pulse ox of about 79% on room air and then it jumped up to 96% on 2 L nasal cannula. He was given a breathing treatment prior to arrival. Patient indicated on presentation he had not been well for about a week. He denies fever but stated he has had a cough with some nausea and intermittent vomiting and diarrhea. 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 On presentation he was found of a temperature of 99.3, blood pressure was 97/30, respiratory was 24 and oxygen saturation here was initially 92% on room air. His CBC shows a normal white count with a chronic anemia that is stable and a left shift with an 87.8% neutrophilia. Coags were normal. His chemistry panel showed mild hyponatremia that appears to be chronic and likely precipitated from his psych medications as well as an elevated BUN/creatinine at 27 and 1.42 with apparent baseline of 1.0-1.2. His glucose was mildly elevated at 135. Lactic acid was normal. Chest x-ray showed a patchy left perihilar and left lower lobe infiltrate. Rapid flu was positive on presentation. He was given aerosols and started on antibiotics in the emergency department and request for admission was made. [facility] Medical History Diabetes mellitus type II GERD History of Lynn's palsy History of COPD History of diabetes mellitus Hypertension Hypothyroidism Schizophrenia Home Medications acetaminophen 500 mg tablet 1,000 mg PO TID 03/20/14 [History Last Taken Unknown] carbamazepine 200 mg tablet (Tegretol) 200 mg PO 4X/DAY 03/20/14 [History Last Taken Unknown] clozapine 100 mg tablet (Clozaril) 100 mg PO BID SCHIZOPHRENIA 03/20/14 [History Last Taken Unknown] duloxetine 20 mg capsule,delayed release 20 mg PO DAILY 03/20/14 [History Last Taken Unknown] famotidine 20 mg tablet 20 mg PO BID 03/20/14 [History Last Taken Unknown] fluticasone 250 mcg-salmeterol 50 mcg/dose blistr powdr for inhalation (Advair Diskus) 1 puff inhalation BID 03/20/14 [History Last Taken Unknown] levothyroxine 75 mcg tablet 75 mcg PO DAILY 03/20/14 [History Last Taken Unknown] lisinopril 2.5 mg tablet 2.5 mg PO DAILY 03/20/14 [History Last Taken Unknown] metformin 500 mg tablet 1,000 mg PO BID 03/20/14 [History Last Taken Unknown] metoprolol succinate 25 mg tablet,extended release 24 hr 12.5 mg PO DAILY 03/20/14 [History Last Taken Unknown] simvastatin 40 mg tablet 40 mg PO QHS 03/20/14 [History Last Taken Unknown] albuterol sulfate 90 mcg/actuation aerosol inhaler (ProAir HFA) 2 puff inhalation Q4H PRN PRN Wheezing 03/21/14 [History Last Taken Unknown] magnesium hydroxide 400 mg/5 mL oral suspension 30 ml PO DAILY PRN Constipation 03/21/14 [History Last Taken Unknown] calcium carbonate 500 mg calcium (1,250 mg) tablet 500 mg PO BID 03/21/18 [History Last Taken Unknown] montelukast 10 mg tablet 10 mg PO DAILY 03/21/18 [History Last Taken Unknown] tamsulosin 0.4 mg capsule 0.4 mg PO DAILY 03/21/18 [History Last Taken Unknown] albuterol sulfate 2.5 mg/3 mL (0.083 %) solution for nebulization 2.5 mg inhalation Q4H PRN shortness of breath or wheezing 12/10/23 [History Last Taken Unknown] aluminum-mag hydroxide-simethic one 200 mg-200 mg-20 mg/5 mL oral susp (Antacid) 30 ml PO Q4H PRN GI UPSET 12/10/23 [History Last Taken Unknown] aspirin 81 mg tablet,delayed release 81 mg PO DAILY 12/10/23 [History Last Taken Unknown] benztropine 0.5 mg tablet 0.5 mg PO DAILY 12/10/23 [History Last Taken Unknown] bisacodyl 10 mg rectal suppository (Dulcolax (bisacodyl)) 10 mg AR DAILY PRN constipation 12/10/23 [History Last Taken Unknown] cholecalciferol (vitamin D3) 1,250 mcg (50,000 unit) capsule 1,250 mcg PO TU 12/10/23 [History Last Taken Unknown] clozapine 100 mg tablet 500 mg PO QHS SCHIZOPHRENIA 12/10/23 [History Last Taken Unknown] docusate sodium 100 mg tablet 100 mg PO DAILY CONSTIPATION 12/10/23 [History Last Taken Unknown] folic acid 400 mcg tablet 400 mcg PO DAILY 12/10/23 [History Last Taken Unknown] furosemide 20 mg tablet 20 mg PO DAILY 12/10/23 [History Last Taken Unknown] ibuprofen 400 mg tab (more content not included)... Normal [facility] Hematocrit Auto (Bld) [Volum e fraction]Ordered By: Geronimo Corley on 12-10-2023 Hematocrit (Bld) [Volume fraction] 31.6 % 40-54 [facility] Immature granulocytes/100 WB C Auto (Bld)Ordered By: Geronimo Corley on 12-10-2023 Immature granulocytes/100 WBC (Bld) 0.400 % 0.0-0.9 [facility] Comment on above: IG% - Immature Granu locytes (promyelocytes, myelocytes and metamyelocytes) > 1% indicates that a LEFT SHIFT is Present. Iron measurement (mass/mass) Ordered By: Jenna Howell on 12-10-2023 Iron (Unsp spec) [Mass/Mass] 31 ug/dL 65-175 [facility] Iron+Iron Binding Capacityon 12-10-2023 Iron [Mass/Vol] 31 ug/dL Low 65-175 [facility] Comment on above: Performed By: #### L 501.080 #### [facility] [address] [place], [place], [id number] IRON SATURATION 14.1 Low 15.0-55.0 [facility] Comment on above: Performed By: #### L 501.080 #### [facility] [address] [place], [place], [id number] TIBC 220 ug/dL Low 250-450 [facility] Comment on above: Performed By: #### L 501.080 #### [facility] [address] [facility] [place], [place], [id number] Laboratory - Chemistry and C hemistry - challengeOrdered By: Geronimo Corley on 12-10-2023 Albumin/Globulin [Mass ratio] 0.7 {ratio} 0.9-2.4 [facility] ALP [Catalytic activity/Vol] 88 U/L 45-117 [facility] ALT [Catalytic activity/Vol] 31 U/L 16-61 [facility] CO2 [Moles/Vol] 26.0 mmol/L 21.0-32.0 [facility] Globulin (S) [Mass/Vol] 4.3 g/dL 2.2-4.2 [facility] Urea nitrogen/Creatinine [Mass ratio] 19.0 mg/mg 10-20 [facility] - Chemistry and C hemistry - challengeOrdered By: Jenna Howell on 12-10-2023 Ferritin [Mass/Vol] 83 ng/mL 26-388 [facility] Laboratory - CoagulationOrde red By: Geronimo Corley on 12-10-2023 INR Coag (Bld) [Relative time] 1.1 {INR} [facility] PT Coag (PPP) [Time] 13.9 s 11.7-14.9 [facility] - Hematology and Cell countsOrdered By: Geronimo Corley on 12-10-2023 MCH (RBC) [Entitic mass] 30.2 pg 27.0-32.0 [facility] MCHC (RBC) [Mass/Vol] 33.2 g/dL 32-36 [facility] Nucleated RBC/100 WBC (Bld) [Ratio] 0 % 0-5 [facility] Platelet mean volume (Bld) [Entitic vol] 9.0 fL 6.2-12.0 [facility] Platelets (Bld) [#/Vol] 233 10*3/uL 150-450 [facility] - Microbiology an d Antimicrobial susceptibilityOrdered By: Geronimo Corley on 12-10-2023 SARS-CoV-2 (COVID-19) RNA PALLAVI+probe Ql (Unsp spec) Influenzae A [facility] Lactic Acidon 12-10-2023 Lactate [Moles/Vol] 2.0 mmol/L Normal 0.4-1.9 [facility] Comment on above: Result Comment: Crit ical Result(s) Called at: 14:22:58 12/10/2023 by: Alessia Kaur to Gary. Results read back by same. Performed By: #### L 501.080 #### [facility] [address] [place], [address] Lactate [Moles/Vol] 2.0 mmol/L Normal 0.4-1.9 [facility] Comment on above: Order Comment: Y Result Comment: Crit ical Result(s) Called at: 10:04:47 12/10/2023 by: Alessia Kaur to Cain. Results read back by same. Performed By: #### L 501.080 #### [facility] [address] [place], [place], [id number] M100.678on 12-10-2023 M100.678 Normal Reference Range = Negative COV + FLU + RSV PCR GeneXpert Instrument, PCR method RESULTS CALLED TO AGATA 12/10/23 Ramses Larose. REPORT READ BACK BY AGATA. Copy of report sent to Infection Control Printer [id number] 12/10/23 1020 ZAC. SARS-CoV-2 (COVID 19) Negative INFLUENZA A Positive A INFLUENZA A Positive A RSV PCR Negative FLUA Normal [facility] Comment on above: Performed By: #### L 501.080 #### [facility] [address] [place], [place], [id number] No Panel InformationOrdered By: Geronimo Corley on 12-10-2023 Estimated Creatinine Clearance Calc 50.22 ml/min [facility] Estimated GFR (MDRD) Amer 64 mL/min >60 [facility] Comment on above: GFR Calc Estimated GFR (MDRD) Non-Af Amer 53 mL/min >60 [facility] Comment on above: Non- GFR Calc No Panel InformationOrdered By: Jenna Howell on 12-10-2023 Total Iron Binding Capacity 220 ug/dL 250-450 [facility] Partial Thromboplast Timeon 12-10-2023 aPTT Coag (Bld) [Time] 32.4 s Normal 24.1-36.2 [facility] Comment on above: Performed By: #### L 501.080 #### [facility] [address] [place], [address] Prothrombin Time w/INRon INR Coag (PPP) [Relative time] 1.1 {INR} Normal [facility] Comment on above: Performed By: #### L 501.080 #### [facility] [address] [place], [address] PT Coag (PPP) [Time] 13.9 s Normal 11.7-14.9 [facility] Comment on above: Performed By: #### L 501.080 #### [facility] [address] [place], [address] RBC Auto (Bld) [#/Vol]Ordere d By: Geronimo Corley on 12-10-2023 RBC (Bld) [#/Vol] 3.48 10*6/uL 4.6-6.2 [facility] RESPIRATORY PANEL MOLECULARo n 12-10-2023 RP PANEL CRITICAL VALUE VERIFIED. CALLED TO AMADO DURAN 12/10/231925 Negro Rodriguez. RESULTS READ BACK BY SAME . Copy of report sent to Infection Control Printer [id number] 12/10/231926 GRICELDA. Normal Reference Range = Not Detected Resp path DNA+RNA Pnl Resp PALLAVI+probe Nucleic acid amplification test method ADENOVIRUS Not Detected INFLUENZA A A Positive for INFLUENZA A by NAAT technology A INFLUENZA A (SUBTYPE H1) Not Detected INFLUENZA A (SUBTYPE H3) A Positive for INFLUENZA A SUBTYPE H3 by NAAT technologyA INFLUENZA B Not Detected HUMAN METAPHNEUMO Not Detected PARAINFLUENZA 1 Not Detected PARAINFLUENZA 2 Not Detected PARAINFLUENZA 3 Not Detected PARAINFLUENZA 4 Not Detected RHINOVIRUS Not Detected RSV A Not Detected RSV B Not Detected INFLUENZA A (SUBTYPE H3) Normal [facility] Comment on above: Performed By: #### L 501.080 #### [facility] [address] [place], [address] Respiratory pathogens DNA an d RNA panel PALLAVI+probe (Resp)Ordered By: Jenna Howell on 12-10-2023 Respiratory Panel (PCR) Influenza A (Subtype H3) [facility] Serum or plasma calcium omar urement (mass/volume)Ordered By: Geronimo Corley on 12-10-2023 Calcium [Mass/Vol] 8.8 mg/dL 8.5-10.1 [facility] Serum or plasma creatinine m easurement (mass/volume)Ordered By: Geronimo Corley on 12-10-2023 Creatinine [Mass/Vol] 1.42 mg/dL 0.70-1.30 [facility] Comment on above: The validity of the calculated GFR & GFRAA in patients over 70 years has not been determined. Clinical correlation is essential. Serum or plasma iron saturat ion measurement (mass fraction)Ordered By: Jenna Howell on 12-10-2023 Iron saturation [Mass fraction] 14.1 % 15.0-55.0 [facility] Serum or plasma urea nitroge n measurement (mass/volume)Ordered By: Geronimo Corley on 12-10-2023 Urea nitrogen [Mass/Vol] 27 mg/dL 7-18 [facility] Thin prep Papanicolaou smear with manual screeningOrdered By: Geronimo Corley on 12-10-2023 Thin prep Papanicolaou smear with manual screening 3.1 g/dL 3.2-5.0 [facility] Thin prep Papanicolaou smear with manual screening 36 U/L 15-37 [facility] Thin prep Papanicolaou smear with manual screening 8 5-15 [facility] Office Visit: abd pain-?[place] [facility] [place] Documentation of current medications (procedure) Done Invalid Interpretation Code [facility] Work Phone: Fall risk assessment No Invalid Interpretation Code [facility] Work Phone: Protein mass conc Done [facility] Work Phone: Tobacco smoking status NHIS Current every day smoker [facility] Work Phone: Tobacco use CPHS Current every day smoker Invalid Interpretation Code [facility] Work Phone: Vital Signs Date Time Vital Sign Value Performing Clinician Facility 12-13-2023 16:13-0400 Body temperature 98 [degF] Dr. Jaylen Win Work Phone: [facility] 12-13-2023 16:13-0400 Diastolic blood pressure 93 mm[Hg] Dr. Jaylen Win Work Phone: [facility] 12-13-2023 16:13-0400 Heart rate 89 /min Dr. Jaylen Win Work Phone: [facility] 12-13-2023 16:13-0400 Respiratory rate 20 /min Dr. Jaylen Win Work Phone: [facility] 12-13-2023 16:13-0400 SaO2% (BldA) [Mass fraction] 99 % Dr. Jaylen Win Work Phone: [facility] 12-13-2023 16:13-0400 Systolic blood pressure 155 mm[Hg] Dr. Jaylen Win Work Phone: [facility] 12-13-2023 05:08-0400 Body mass index (BMI) [Ratio] 40.4 kg/m2 Dr. Jaylen Win Work Phone: [facility] 12-13-2023 05:08-0400 Body weight 97.[address] Jaylen Win Work Phone: [facility] 12-10-2023 14:38-0400 Body height 154.[address] Jaylen Win Work Phone: [facility] 12-10-2023 13:54-0400 Diastolic blood pressure 61 mm[Hg] [facility] 12-10-2023 13:54-0400 Heart rate 83 /min [facility] 12-10-2023 13:54-0400 Respiratory rate 16 /min [facility] 12-10-2023 13:54-0400 SaO2% (BldA) [Mass fraction] 94 % [facility] 12-10-2023 13:54-0400 Systolic blood pressure 95 mm[Hg] [facility] 12-10-2023 13:02-0400 Body temperature 98.3 [degF] [facility] 12-10-2023 08:55-0400 Body height 154.[address] [facility] 12-10-2023 08:55-0400 Body mass index (BMI) [Ratio] 40.6 kg/m2 [facility] 12-10-2023 08:55-0400 Body weight 97.[address] [facility] 05-22-2017 13:22-0400 BMI (Body Mass Index) 41.19 kg/m2 Aurelia Celaya MD [facility] Work Phone: 05-22-2017 13:22-0400 Body Temperature 98.2 [degF] Aurelia Celaya MD [facility] Work Phone: 05-22-2017 13:22-0400 BP Diastolic 72 mm[Hg] Aurelia Celaya MD [facility] Work Phone: 05-22-2017 13:22-0400 BP Systolic 125 mm[Hg] Aurelia Celaya MD [facility] Work Phone: 05-22-2017 13:22-0400 Height 162.56 cm Aurelia Celaya MD [facility] Work Phone: 05-22-2017 13:22-0400 Pulse (Heart Rate) 89 /min Aurelia Celaya MD [facility] Work Phone: 05-22-2017 13:22-0400 Respiratory Rate 18 /min Aurelia Celaya MD [facility] Work Phone: 05-22-2017 13:22-0400 Weight 108.86 kg Aurelia Celaya MD [facility] Work Phone: Encounters Encounter Date Encounter Type Care Provider Facility Start: 12-13-2023 Non-patient / Non-visit Dr. Miah Win Work Phone: [facility] Work Phone: Start: 12-12-2023 Non-patient / Non-visit Dr. Miah Win Work Phone: [facility] Work Phone: Start: 12-11-2023 Non-patient / Non-visit Dr. Miah Win Work Phone: [facility] Work Phone: Start: 12-10-2023 ambulatory Jaylen Win Facility: [facility] [place] [facility] Start: 12-10-2023 End: 12-13-2023 Evaluation and management of inpatient Jenna Dante Facility:[facility] Start: 12-10-2023 Non-patient / Non-visit Dr. Miah Win Work Phone: [facility] Work Phone: Start: 12-10-2023 End: 12-13-2023 [facility]: Start: 05-23-2017 [facility] Date Procedure Procedure Detail Performing Clinician Start: 12-12-2023 CT of head without contrast Dr. Jaylen Win Work Phone: Start: 12-11-2023 Measurement of occul t blood in stool specimen using immunoassay Dr. Jaylen Win Work Phone: Start: 12-11-2023 Streptococcus pneumo niae Antigen (M Dr. Jaylen Win Work Phone: Start: 12-11-[address] Carlitos Win Work Phone: Start: 12-10-[address] Jaylen Win Work Phone: Start: 12-10-2023 SARS-CoV-2, Influenz a & RSV (PCR) Start: 12-10-2023 Plain chest X-ray Plan of Treatment Date Care Activity Detail Author Start: 12-13-2023 Patient discharge [facility] Start: 12-11-2023 Thyroid stimulating hormone measurement [facility] Start: 12-11-2023 [facility] Start: 12-10-2023 Following clinical pathway protocol [facility] Start: 12-10-2023 Assessment of risk of venous thromboembolism [facility] Start: 12-10-[address] [facility] Start: 12-10-2023 Elevation of head of bed [facility] Start: 12-10-2023 Incentive spirometry [facility] Start: 12-10-2023 Insertion of catheter into peripheral vein [facility] Start: 12-10-2023 Notification of physician [facility] Start: 12-10-2023 Oxygen therapy [facility] Start: 12-10-2023 Patient education [facility] Start: 12-10-2023 Physiotherapy of chest [facility] Start: 12-10-2023 Providing care according to standard [facility] Start: 12-10-2023 Provision of activity privileges [facility] Start: 12-10-2023 Referral to occupational therapist [facility] Start: 12-10-2023 Referral to service [facility] Start: 12-10-2023 Respiratory secretion precautions [facility] Start: 12-10-2023 Respiratory therapy [facility] Start: 12-10-2023 Taking nasal swab [facility] Start: 12-10-2023 Tobacco use cessation education [facility] Start: 12-10-2023 [facility] Start: 12-10-2023 Bacteria identified in Blood by Culture Blood Culture [facility] Start: 12-10-2023 Measurement of occult blood in stool specimen using immunoassay [facility] Start: 12-10-2023 Bacteria identified in Sputum by Culture [facility] Start: 12-10-2023 Legionella pneumophila Ag [Presence] in Urine [facility] Start: 12-10-2023 Respiratory pathogens DNA and RNA panel - Respiratory specimen by PALLAVI with probe detection [facility] Start: 12-10-2023 Streptococcus pneumoniae antigen assay [facility] Start: 12-10-2023 [facility] Start: 12-10-2023 Admission procedure [facility] Start: 12-10-2023 [facility] Start: 12-10-2023 End: 12-10-2023 Blood culture [facility] Start: 12-10-2023 Patient referral to dietitian [facility] Start: 05-22-2017 End: 05-26-2017 Follow Up Appt Other Follow Up Appt Other [facility] Work Phone: Alanine aminotransfe rase [Enzymatic activity/volume] in Serum or Plasma [facility] Albumin [Mass/volume ] in Serum or Plasma [facility] Alkaline phosphatase [Enzymatic activity/volume] in Serum or Plasma [facility] Anion gap measurement [facility] Aspartate aminotrans ferase [Enzymatic activity/volume] in Serum or Plasma [facility] Bacteria identified in Urine by Culture [facility] Bilirubin measurement, urine [facility] Bilirubin, total measurement [facility] BUN/Creatinine ratio [facility] Calcium [Mass/volume ] in Serum or Plasma [facility] Carbon dioxide, tota l [Moles/volume] in Serum or Plasma [facility] Chloride [Moles/volu me] in Serum or Plasma [facility] Creatinine [Moles/vo lume] in Serum or Plasma [facility] Erythrocyte mean cor puscular volume determination [facility] Glucose [Mass/volume ] in Serum or Plasma [facility] Hematocrit [Volume F raction] of Blood [facility] Hemoglobin [Mass/vol ume] in Blood [facility] Hemoglobin [Presence ] in Urine [facility] Lactic acid measurement [facility] Leukocytes [#/volume ] in Blood [facility] Magnesium [Mass/volu me] in Serum or Plasma [facility] Mean corpuscular hem oglobin concentration determination [facility] Mean corpuscular hem oglobin determination [facility] Measurement of keton es in urine using dipstick [facility] Measurement of renal function [facility] Microscopic urinalysis [facility] Neutrophil count [facility] Neutrophil percent differential count [facility] Patient referral [facility] Work Phone: pH of Urine [facility] Platelets [#/volume] in Blood [facility] Potassium [Moles/vol ume] in Serum or Plasma [facility] Red blood cell count [facility] Red cell distributio n width determination [facility] Serum inorganic phos phate measurement [facility] Sodium [Moles/volume ] in Serum or Plasma [facility] Specific gravity of Urine [facility] Total protein measurement [facility] Urea nitrogen [Mass/ volume] in Serum or Plasma [facility] Urinalysis, blood, qualitative [facility] Urine dipstick for glucose [facility] Urine dipstick for l eukocyte esterase [facility] Urine dipstick for nitrite [facility] Urine dipstick for protein [facility] Urine examination [facility] Urine microscopy: ep ithelial cells [facility] Urine Microscopy: wh ite cells [facility] Urobilinogen [Presen ce] in Urine [facility] Immunizations Immunization Date Immunization Notes Care Provider Zander rodriguez 07-30-2013 Influenza virus vaccine [facility] Payers Date Payer Category Payer Self-pay [id number] 2016 Medicaid [id number] Medicaid Unknown [id number] Unknown [id number] Unknown [id number] Unknown [id number] Unknown [id number] Social History Date Type Detail Facility Start: 12-10-2023 End: 12-10-2023 Tobacco smoking status NHIS Unknown if ever smoked [facility] Start: 03-21-2014 None [facility] Start: 1955 Sex Assigned At Male [facility] Goals Date Patient Goal Desired Activity /State Functional Status Date Assessment Result Facility 12-13-2023 Functional status Chair;Bathroom Privileg e [facility] Work Phone: Mental Status Date Assessment Result Facility 12-13-2023 Cognitive function Voice/Name [facility] Work Phone: Discharge summary note 12-13-2023 Note Date & Type Note Facility 12-13-2023 Note [facility] Medical Records Department [address] [place] [address] Discharge Summary 12/13/23 1510 MR#: [id number] Acct: [id number] Name: FAYE TRINIDAD V Rep #: [id number] : 1955 68 From: Aleksandar Gomez DO PCP: Dr. Jaylen Win MD Status:DIS IN Location: [address] Providers Date of Admission: 12/10/23 Date of Discharge: 12/13/23 Primary Care Physician: Dr. Jaylen Win MD Reason For Visit: ACUTE HYPOXIA 2/2 INFLUENZA A Diagnosis Discharge Diagnosis (1) Pneumonia: Status: Acute Code(s): J18.9 - Pneumonia, unspecified organism (2) Influenza A: Status: Acute Code(s): J10.1 - Influenza due to other identified influenza virus with other respiratory manifestations (3) Anemia: Status: Chronic Code(s): D64.9 - Anemia, unspecified (4) Hypoxia: Status: Acute Code(s): R09.02 - Hypoxemia (5) Acute dehydration: Status: Acute Code(s): E86.0 - Dehydration (6) Hyponatremia: Status: Acute Code(s): E87.1 - Hypo-osmolality and hyponatremia (7) Elevated serum creatinine: Status: Acute Code(s): R79.89 - Other specified abnormal findings of blood chemistry (8) COPD with acute exacerbation: Status: Acute Code(s): J44.1 - Chronic obstructive pulmonary disease with (acute) exacerbation Plan 1. Acute community-acquired pneumonia-bacterial in nature, organism not identified #2 influenza A acute #3 hypoxia secondary to #1 #4 schizophrenia #5 type 2 diabetes #6 essential hypertension #7 hypothyroidism Acute hypoxic respiratory failure was ruled out Medications at Discharge Home Medications acetaminophen 500 mg tablet 1,000 mg PO TID 03/20/14 carbamazepine 200 mg tablet (Tegretol) 200 mg PO 4X/DAY 03/20/14 clozapine 100 mg tablet (Clozaril) 100 mg PO BID SCHIZOPHRENIA 03/20/14 duloxetine 20 mg capsule,delayed release 20 mg PO DAILY 03/20/14 famotidine 20 mg tablet 20 mg PO BID 03/20/14 fluticasone 250 mcg-salmeterol 50 mcg/dose blistr powdr for inhalation (Advair Diskus) 1 puff inhalation BID 03/20/14 levothyroxine 75 mcg tablet 75 mcg PO DAILY 03/20/14 lisinopril 2.5 mg tablet 2.5 mg PO DAILY 03/20/14 metformin 500 mg tablet 1,000 mg PO BID 03/20/14 metoprolol succinate 25 mg tablet,extended release 24 hr 12.5 mg PO DAILY 03/20/14 simvastatin 40 mg tablet 40 mg PO QHS 03/20/14 albuterol sulfate 90 mcg/actuation aerosol inhaler (ProAir HFA) 2 puff inhalation Q4H PRN PRN Wheezing 03/21/14 magnesium hydroxide 400 mg/5 mL oral suspension 30 ml PO DAILY PRN Constipation 03/21/14 calcium carbonate 500 mg calcium (1,250 mg) tablet 500 mg PO BID 03/21/18 montelukast 10 mg tablet 10 mg PO DAILY 03/21/18 tamsulosin 0.4 mg capsule 0.4 mg PO DAILY 03/21/18 albuterol sulfate 2.5 mg/3 mL (0.083 %) solution for nebulization 2.5 mg inhalation Q4H PRN shortness of breath or wheezing 12/10/23 aluminum-mag hydroxide-simethicone 200 mg-200 mg-20 mg/5 mL oral susp (Antacid) 30 ml PO Q4H PRN GI UPSET 12/10/23 aspirin 81 mg tablet,delayed release 81 mg PO DAILY 12/10/23 benztropine 0.5 mg tablet 0.5 mg PO DAILY 12/10/23 bisacodyl 10 mg rectal suppository (Dulcolax (bisacodyl)) 10 mg AR DAILY PRN constipation 12/10/23 cholecalciferol (vitamin D3) 1,250 mcg (50,000 unit) capsule 1,250 mcg PO TU 12/10/23 clozapine 100 mg tablet 500 mg PO QHS SCHIZOPHRENIA 12/10/23 docusate sodium 100 mg tablet 100 mg PO DAILY CONSTIPATION 12/10/23 folic acid 400 mcg tablet 400 mcg PO DAILY 12/10/23 furosemide 20 mg tablet 20 mg PO DAILY 12/10/23 ibuprofen 400 mg tablet (IBU) 400 mg PO Q6H PRN pain 12/10/23 nicotine (polacrilex) 2 mg buccal lozenge 2 mg PO Q2H 12/10/23 nicotine 10 mg inhalation cartridge (Nicotrol) 1 inh inhalation Q2H PRN nicotine cravings 12/10/23 olanzapine 15 mg tablet 15 mg PO QHS 12/10/23 omega-3 fatty acids 1,000 mg capsule 1,000 mg PO BID CHOLESTEROL 12/10/23 sodium chloride 1,000 mg soluble tablet 1,000 mg PO BID 12/10/23 cefdinir 300 mg capsule 300 mg PO BID #6 caps 12/13/23 lorazepam 0.5 mg tablet 0.5 mg PO Q8H PRN PRN Agitation #10 tabs 12/13/23 Hospital Course Operations None Procedures None Summary of Care Provided Minutes Spent on Discharge: 32 Hospital Course: This 68-year-old white male was seen in the emergency room at [facility] with complaints of shortness of breath. He was a resident at a skilled nursing which specialized in behavioral problems, there was an outbreak of influenza at the facility. Patient's pulse ox at the nursing facility was 79% on room air and he was placed on 2 L and it improved to 96%. Patient was given a breathing treatment prior to arrival in the emergency room. Evaluation in the emergency room showed his oxygen saturation initially 92% on room air, CBC showed a normal white blood cell count, chemistry panel showed mild hyponatremia which appears to be chronic, BUN was elevated at 27, prieto (more content not included)... [facility] Discharge summary 12-13-2023 Note Date & Type Note Facility 12-13-2023 Discharge summary Note Date/Time December 13, 2023 2:58pm [facility] Medical Records Department [address] [place] [address] Transfer to [facility] Care MR#: [id number] Acct: [id number] Name: FAYE TRINIDAD V Rep #:[id number] : 1955 68 From: Aleksandar Gomez DO PCP: Dr. Jaylen Win MD Status:ADM IN Certification of patient admission REQUIRED AT TIME OF ADMISSION. I CERTIFY THAT POST-HOSPITAL ECF SERVICES ARE REQUIRED TO BE GIVEN ON AN IN-PATIENT BASIS BECAUSE OF THE ABOVE NAMED PATIENT'S NEED FOR [facility] CARE ON A CONTINUING BASIS FOR THE CONDITION(S) FOR WHICH HE/SHE WAS RECEIVING IN-PATIENT HOSPITAL SERVICES PRIOR TO HIS/HER TRANSFER TO THE ECF. 12/13/23 1510<Electronically signed by Aleksandar Gomez DO> Diet Diet Order/Speech Therapy: 12/10/23 14:18 Diet: Consistent Carb - Calorie Controlled Food consistency:: Regular Liquid Consistency:: Regular/Thin Dietary Modifications:: Cardiac / Heart Healthy Diet Comments: cut up meats please; plastic silverware, no knife How many daily calories?: 1800 calorie Routine Orders/Code Status Code Status: DNRCC-A (No intubation) Therapies Weight Bearing: Full weight bearing Problem/Diagnosis (1) Pneumonia: Status: Acute Code(s): J18.9 - Pneumonia, unspecified organism Comment: Organism unknown (2) Influenza A: Status: Acute Code(s): J10.1 - Influenza due to other identified influenza virus with other respiratorymanifestations (3) Anemia: Status: Chronic Code(s): D64.9 - Anemia, unspecified (4) Hypoxia: Status: Acute Code(s): R09.02 - Hypoxemia (5) Acute dehydration: Status: Acute Code(s): E86.0 - Dehydration (6) Hyponatremia: Status: Acute Code(s): E87.1 - Hypo-osmolality and hyponatremia (7) Elevated serum creatinine: Status: Acute Code(s): R79.89 - Other specified abnormal findings of blood chemistry (8) COPD with acute exacerbation: Status: Acute Code(s): J44.1 - Chronic obstructive pulmonary disease with (acute) exacerbation Allergies/Procedures Done in Hospital Allergies No Known Allergies Allergy (Verified 12/10/23 09:00) Procedures: None Type of Care/Length of Stay Estimated LOS: More Than 30 Days Type of Care Needed: Intermediate Rehab Potential: Fair Prognosis: Fair Additional Orders/Day of Discharge H&P will serve as current which was dated: 12/10/23 Day of Discharge: 12/13/23 Dietary and Speech Recommendations Dietitian Recommendations/Changes: continue cardiac, 1800 calorie controlled diet as ordered; will add cut up meats per SNF routine. ONS if PO intake at meals fails. Discharge Plan Admission Admit Date/Time: 12/10/23 10:50 Primary Reason for Your Visit: hypoxia, pneumonia. Influenza Attending Provider: Aleksandar Gomez Primary Care Provider: Jaylen Win Consulting Providers: Jenna Howell Discharge Orders/Prescriptions Prescriptions: New lorazepam 0.5 mg Tablet 0.5 mg PO Q8H PRN PRN (Reason: Agitation) Qty: 10 0RF cefdinir 300 mg capsule 300 mg PO BID Qty: 6 0RF Rx Instructions: Started on 12/14/2023, administered for 3 days then stop Continued metformin 500 MG tablet 1,000 mg PO BID Patient Comments: DIABETES fluticasone propion-salmeterol [Advair Diskus] 1 PUFF inhaler 1 puff inhalation BID Patient Comments: COPD clozapine [Clozaril] 100 MG tablet 100 mg PO BID acetaminophen 500 MG tablet 1,000 mg PO TID simvastatin 40 MG tablet 40 mg PO QHS levothyroxine 75 MCG tablet 75 mcg PO DAILY carbamazepine [Tegretol] 200 MG tablet 200 mg PO 4X/DAY Patient Comments: SEIZURES famotidine 20 MG tablet 20 mg PO BID metoprolol succinate 25 MG tablet 12.5 mg PO DAILY lisinopril 2.5 MG tablet 2.5 mg PO DAILY duloxetine 20 MG capsule 20 mg PO DAILY magnesium hydroxide 30 ML suspension 30 ml PO DAILY PRN (Reason: Constipation) albuterol sulfate [ProAir HFA] 1 PUFF inhaler 2 puff inhalation Q4H PRN PRN (Reason: Wheezing) calcium carbonate 500 MG tablet 500 mg PO BID tamsulosin 0.4 MG capsule 0.4 mg PO DAILY montelukast 10 MG tablet 10 mg PO DAILY albuterol sulfate 2.5 mg /3 mL (0.083 %) solution for nebulization 2.5 mg inhalation Q4H PRN (Reason: shortness of breath or wheezing) aspirin 81 mg tablet,delayed release (DR/EC) 81 mg PO DAILY benztropine 0.5 mg tablet 0.5 mg PO DAILY clozapine 100 mg tablet 500 mg PO QHS docusate sodium 100 mg tablet 100 mg PO DAILY bisacodyl [Dulcolax (bisacodyl)] 10 mg suppository 10 mg AR DAILY PRN (Reason: constipation) omega-3 fatty acids 1,000 mg capsule 1,000 mg PO BID folic acid 400 mcg tablet 400 mcg PO DAILY furosemide 20 mg tablet 20 mg PO DAILY ibuprofen [IBU] 400 mg tablet 400 mg PO Q6H PRN (Reason: pain) alum-mag hydroxide-simeth [Antacid] 200-200-20 mg/5 mL suspension 30 ml PO Q4H PRN (Reason: GI UPSET) nicotine (polacrilex) 2 mg lozenge 2 mg PO Q2H Rx Instructions: DO NOT EXCEED 8 LOZENGES PER DAY Nicotrol 10 mg cartridge 1 inh inhalation Q2H PRN (Reason: nicotine cravings) Rx Instructions: DO NOT EXCEED 8 CARTRIDGES PER DAY sodium chloride 1,000 mg tablet,soluble 1,000 mg PO BID cholecalciferol (vitamin D3) 1,250 mcg (50,000 unit) capsule 1,250 mcg PO TU olanzapine 15 mg tablet 15 mg PO QHS Discontinued lorazepam [Ativan] 1 mg tablet 1 mg PO TID DermaPhor 44 % ointment 1 ea topical PRN oseltamivir [Tamiflu] 75 mg capsule 75 mg PO BID Referrals / Follow Up: Jaylen Win MD [Primary Care Provider] - Disposition Disposition (needs filled in before D/C Order can be placed): NonSkilled NH/Intermed Care 12/13/23 1510 <Electronically signed by Aleksandar Gomez DO> Cosigner Signature (if applicable): CC: Dr. Jenna Howell DO; Dr. Jaylen Win MD ~ [facility] Work Phone: Progress note 12-12-2023 Note Date & Type Note Facility 12-12-2023 Progress note Note Date/Time December 12, 2023 3:14pm [facility] Medical Records Department [address] [place] [address] Progress Note - Hospitalist 12/12/23 1512 MR#: [id number] Acct: [id number] Name: FAYE TRINIDAD V Rep #:[id number] : 1955 68 From: Jenna Howell DO PCP: Dr. Jaylen Win MD Status:ADM IN Location: [facility] [facility] [id number] Reason for Visit Reason for Visit: Shortness of breath Subjective Subjective Patient up in a chair and very sleepy today. Per nursing he was fine per night and early this morning but after he received his scheduled Ativan which is a chronic medication for him this morning he became more somnolent and sleepy. Metabolic workup has not been unremarkable and imaging was normal. He remains on room air. Objective Data Objective Data Vital Signs: Vital Signs Temp Pulse Resp BP Pulse Ox O2 Del Method 96.9 F L 93 18 133/82 H 98 Room Air 12/12/23 15:01 12/12/23 15:01 12/12/23 15:01 12/12/23 15:01 12/12/23 15:01 12/12/23 15:01 Oxygen Delivery Method Room Air Weight: 93 kg Body Mass Index (BMI) 38.7 Intake & Output: Intake and Output for Last 24 Hours 12/10/23 12/11/23 12/12/23 23:59 23:59 23:59 Intake Total 1905 / 1905 2705 / 2705 405 / 405 Output Total 300 / 300 1100 / 1100 Balance 1605 / 1605 1605 / 1605 405 / 405 Lab / Micro Data 12/12/23 06:35 12/12/23 06:35 Labs: Laboratory Results - last 24 hr 12/11/23 16:24: POC Glucose 163 H 12/12/23 06:35: WBC 12.1 H, RBC 3.44 L, Hgb 10.5 L, Hct 31.4 L, MCV 91.3, MCH 30.5, MCHC 33.4, RDW Std Deviation 46.3 H, RDW Coeff of Reid 13.8, Plt Count 274,MPV 9.2, Sodium 139, Potassium 4.3, Chloride 110 H, Carbon Dioxide 23.0, Anion Gap 6, BUN 20 H, Creatinine 0.89, Estim Creat Clear Calc 78.13, Est GFR (MDRD) Af Amer 109, Est GFR (MDRD) Non-Af 90, BUN/Creatinine Ratio 22.4 H, Glucose 175 H, Calcium 8.9 12/12/23 06:47: POC Glucose 147 H 12/12/23 10:27: Ammonia 25.0 12/12/23 10:33: POC Glucose 236 H Micro: Microbiology 12/11/23 01:00 Urine, Clean Catch Urine Culture - Preliminary Culture exhibits no growth. 12/10/23 09:16 Blood Culture (Wb) - Arm Right Blood Culture - Preliminary No growth in 48 hours. 12/10/23 09:39 Blood Culture (Wb) - Right Wrist Blood Culture - Preliminary No growth in 48 hours. 12/11/23 14:45 Urine, Clean Catch Streptococcus pneumoniae Antigen (M - Final 12/11/23 14:45 Urine, Clean Catch Legionella Antigen - Final 12/11/23 09:53 Stool Stool Occult Blood (JUSTINE) - Final 12/11/23 06:15 Stool Enteric Bacteriology - Final 12/11/23 06:15 Stool Clostridioides difficile (PCR) - Final 12/10/23 16:15 Mucosa - Nasopharyngeal Respiratory Panel (PCR) - Final Influenza A (Subtype H3) 12/10/23 09:15 Mucosa - Nose SARS-CoV-2, Influenza & RSV (PCR) - Final Influenzae A ABG Data ABG results: ABG 12/12/23 10:14 Specimen Type ART Sample Site L Radial pH 7.39 Bicarbonate Actual 21.8 L Total CO2 23 Base Excess -3 L O2 Saturation 95 O2 % 21.0 ABG pCO2 36.0 ABG pO2 78 Jose Test Positive O2 Delivery Device Not entered Vent Mode Not entered Radiography Diagnostic Testing: Radiology Impression Brain CT 12/12/23 12:29 IMPRESSION: Chronic involutional changes of the brain. Electronically Signed: Cleve Clarke MD at 13:31 EDT , Rhythm Strip Rhythm Strip: Sinus Rhythm Rate: 90 Ectopy: None Physical Exam Const no apparent distress and well nourished; Negative for average body habitus or healthy appearing Constitutional Narrative: Upper middle-aged, male, sitting up in a chair at the bedside, morbidly obese, appears comfortable and nontoxic, but he is very sleepy and difficult to arouse,he does move all 4 extremities symmetrically to sternal rub and opens his eyes but drifts back off to sleep very quickly Orientation / Consciousness: lethargic HEENT normocephalic, head/scalp atraumatic and moist oral mucous membranes HEENT Narrative: Large tongue with chronically slurred speech Resp normal respiratory effort, no retractions, no use of accessory muscles and No clear to auscultation bilaterally Resp Narrative: Few scattered end expiratory wheezes but overall much improved Auscultation: wheezes; Negative for rales or rhonchi Cardio regular rate, regular rhythm, S1 normal heart sound, S2 normal heart sound, no murmurs, no rub, no gallops and no clicks GI normal to inspection, nondistended, normoactive bowel sounds, soft to palpation and non-tender Neuro No CN's II-XII intact bilaterally, moves all extremities and no focal motor deficits Neuro Narrative: Patient very sleepy Sensorium / Orientation: awake, alert and oriented to person Speech: Negative for speech normal Psych affect normal Psych Narrative: Very pleasant, interacts appropriately Assessment & Plan Assessment/Plan (1) Pneumonia: (2) Influenza A: (3) Anemia: (4) Hypoxia: (5) Acute dehydration: (6) Hyponatremia: (7) Elevated serum creatinine: (8) COPD with acute exacerbation: PLAN: Plan Acute hypoxic respiratory failure secondary to viral influenza A pneumonia plus minus bacterial superinfection/acute exacerbation of COPD -Patient was found to be hypoxic on room air at his [facility] facility with an oxygen saturation 79% and improved to 96 on 2 L nasal cannula -Patient is now on room air -Influenza A is positive -Patient was started on Tamiflu as an outpatient will continue -Strep pneumo and Legionella antigens are negative but chest x-ray showed left lower lobe infiltrate -Discontinue azithromycin and would continue antibiotics for total of 7 days -Day 3 of 7 with ceftriaxone -Continue steroids 40 every 8 -Aggressive pulmonary toilet -Incentive spirometry and Acapella if patient can participate -Sputum culture was ordered and pending Toxic/metabolic encephalopathy -Suspect medication induced with Ativan -He was on his baseline dose of 1 mg 3 times daily from his med rec from the facility -Decreased to 0.5 mg 3 times daily as needed for agitation -Ammonia level is normal -ABG is unremarkable -CT head is unremarkable -As the days gone on patient has become more alert but still fairly sleepy whichprecludes discharge Hyponatremia -Resolved -Continue home sodium chloride tablets Anemia -Appears to be chronic and currently stable -Iron studies are consistent with anemia of chronic disease -No acute workup needed any further at this time Elevated serum creatinine -Resolved COPD -Hold home inhalers -Pulmonary toilet as noted above 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 DM-2 -Hold home metformin -Fasting blood sugar this morning is 132 and stable -SSI -Accu-Cheks as ordered Hyperlipidemia -Continue home simvastatin BPH with obstruction -Continue home Flomax Allergies -Continue home Singulair Hypertension -continue home metoprolol -Continue lisinopril -Continue home Lasix Hypothyroidism -TSH within normal limits -Continue home levothyroxine Schizophrenia -Continue home Clozaril -Continue home Tegretol -Continue home Cogentin -Hold home scheduled Ativan due to somnolence -Continue home olanzapine DVT prophylaxis -Subcu Lovenox twice daily due to BMI greater than 40 CODE STATUS -DNR CCA with no intubation per records from ECF Disposition: -Patient sleepier than normal with Ativan dosing seems to be the contributing factor -Workup negative -Hopeful for resolution and discharge tomorrow Charges/Coding Visit Charges Inpatient E&M: 80451 Subs Hosp L2 12/12/23 1528 <Electronically signed by Jenna Howell DO> Cosigner Signature (if applicable): CC: ~ Signed [facility] Work Phone: Progress note 12-11-2023 Note Date & Type Note Facility 12-11-2023 Progress note Note Date/Time December 11, 2023 1:53pm [facility] Medical Records Department [address] [place] [address] Progress Note - Hospitalist 12/11/23 1346 MR#: [id number] Acct: [id number] Name: FAYE TRINIDAD V Rep #:[id number] : 1955 68 From: Jenna Howell DO PCP: Dr. Jaylen Win MD Status:ADM IN Location: [facility]3 BP774-0 Reason for Visit Reason for Visit: Shortness of breath Subjective Subjective Patient indicates he is feeling much better. Has been weaned to room air. Did an ambulatory pulse ox and he is 94 on room air at rest but drops to 89 with exertion. I would like to see him a little bit better with exertion hopefully next 24 hours with ongoing IV steroids and aggressive pulmonary toilet, etc. we can get him back home tomorrow as long as he continues to improve. Objective Data Objective Data Vital Signs: Vital Signs Temp Pulse Resp BP Pulse Ox O2 Del Method 97.5 F L 82 18 140/70 H 94 Room Air 12/11/23 08:57 12/11/23 11:10 12/11/23 11:10 12/11/23 08:57 12/11/23 12:15 12/11/23 11:10 Oxygen Delivery Method Room Air Weight: 97.386 kg Body Mass Index (BMI) 40.5 Intake & Output: Intake and Output for Last 24 Hours 12/09/23 12/10/23 12/11/23 23:59 23:59 23:59 Intake Total 1905 / 1905 2550 / 2550 Output Total 300 / 300 1100 / 1100 Balance 1605 / 1605 1450 / 1450 Lab / Micro Data 12/11/23 06:53 12/11/23 06:53 Labs: Laboratory Results - last 24 hr 12/10/23 13:35: Lactic Acid 2.0 12/10/23 15:57: POC Glucose 107 H 12/10/23 20:44: POC Glucose 148 H 12/11/23 01:00: Urine Color Yellow, Urine Clarity Clear, Urine pH 7.0, Ur Specific [place] 1.005, Urine Protein 30 H, Urine Glucose (UA) Normal, Urine Ketones Negative, Urine Occult Blood 25 H, Urine Nitrite Negative, Urine Bilirubin Negative, Urine Urobilinogen Normal, Ur Leukocyte Esterase Negative, Urine RBC 0 SEEN, Urine WBC 0 SEEN, Ur Squamous Epith Cells 0 SEEN, Urine Bacteria 0 SEEN, Urine Mucus 0 SEEN 12/11/23 05:37: POC Glucose 135 H 12/11/23 06:53: WBC 12.5 H, RBC 3.58 L, Hgb 10.5 L, Hct 32.4 L, MCV 90.5, MCH 29.3, MCHC 32.4, RDW Std Deviation 44.3 H, RDW Coeff of Reid 13.3, Plt Count 241,MPV 9.8, Immature Gran % (Auto) 0.600, Neut % (Auto) 85.3 H, Lymph % (Auto) 11.3L, Morrill % (Auto) 2.6, Eos % (Auto) 0.0, Baso % (Auto) 0.2, Absolute Neuts (auto)10.7 H, Absolute Lymphs (auto) 1.41, Nucleated RBC % 0, Sodium 136, Potassium 4.1, Chloride 103, Carbon Dioxide 23.0, Anion Gap 10, BUN 17, Creatinine 1.00, Estim Creat Clear Calc 71.31, Est GFR (MDRD) Af Amer 96, Est GFR (MDRD) Non-Af 79, BUN/Creatinine Ratio 17.0, Glucose 132 H, Calcium 8.8, Phosphorus 2.5, Magnesium 1.7, Total Bilirubin 0.60, AST 27, ALT 28, Alkaline Phosphatase 85, Total Protein 7.6, Albumin 2.9 L, Globulin 4.7 H, Albumin/Globulin Ratio 0.6 L, TSH 0.65 12/11/23 12:00: POC Glucose 222 H Micro: Microbiology 12/11/23 09:53 Stool Stool Occult Blood (JUSTINE) - Final 12/11/23 06:15 Stool Enteric Bacteriology - Final 12/11/23 06:15 Stool Clostridioides difficile (PCR) - Final 12/10/23 16:15 Mucosa - Nasopharyngeal Respiratory Panel (PCR) - Final Influenza A (Subtype H3) 12/10/23 09:15 Mucosa - Nose SARS-CoV-2, Influenza & RSV (PCR) - Final Influenzae A Radiography Diagnostic Testing: Radiology Impression Chest X-Ray 12/10/23 09:15 IMPRESSION: Patchy left perihilar and left lower lobe infiltrate. Electronically Signed: Cleve Clarke MD at 10:15 EDT , Rhythm Strip Rhythm Strip: Sinus Rhythm Rate: 90 Ectopy: None Physical Exam Const alert, no apparent distress and well nourished; Negative for average body habitus or healthy appearing Constitutional Narrative: Upper middle-aged, male, sitting up in a chair at the bedside, morbidly obese, appears comfortable and nontoxic, has been weaned to room air at rest General Appearance: cooperative HEENT normocephalic, head/scalp atraumatic, hearing grossly normal bilaterally and moist oral mucous membranes HEENT Narrative: Mallampati is 3-4, no thrush Resp normal respiratory effort, no retractions, no use of accessory muscles and No clear to auscultation bilaterally Resp Narrative: Few scattered wheezes but much improved, tachypnea has resolved Auscultation: wheezes; Negative for rales or rhonchi Cardio regular rate, regular rhythm, S1 normal heart sound, S2 normal heart sound, no murmurs, no rub, no gallops and no clicks GI normal to inspection, nondistended, normoactive bowel sounds, soft to palpation and non-tender Extremity no clubbing, cyanosis or edema Extremity Narrative: Pedal pulses are 2+, feet are considerably dry and have extensive callus formation Neuro No CN's II-XII intact bilaterally, moves all extremities and no focal motor deficits Neuro Narrative: Follows commands well but speech is difficult to understand, chronic facial droop on the right, no significant weakness noted Speech: Negative for speech normal Psych affect normal Psych Narrative: Very pleasant, interacts appropriately Assessment & Plan Assessment/Plan (1) Pneumonia: (2) Influenza A: (3) Anemia: (4) Hypoxia: (5) Acute dehydration: (6) Hyponatremia: (7) Elevated serum creatinine: (8) COPD with acute exacerbation: PLAN: Plan Acute hypoxic respiratory failure secondary to viral influenza A pneumonia plus minus bacterial superinfection/acute exacerbation of COPD -Patient was found to be hypoxic on room air at his extended care facility with an oxygen saturation 79% and improved to 96 on 2 L nasal cannula -Patient has been weaned to room air at rest and amatory pulse ox was 89% -Influenza A is positive -Patient was started on Tamiflu as an outpatient will continue -Check respiratory viral panel -Urine antigens for strep pneumo and Legionella were ordered yesterday but not yet collected-discussed with nursing -Will cover with ceftriaxone and azithromycin for now -Continue steroids 40 every 8 -Aggressive pulmonary toilet -Incentive spirometry and Acapella if patient can participate -Sputum culture was ordered and pending Hyponatremia -Resolved -Continue home sodium chloride tablets Anemia -Appears to be chronic and currently stable -Iron studies are consistent with anemia of chronic disease -No acute workup needed any further at this time Elevated serum creatinine -Resolved COPD -Hold home inhalers -Pulmonary toilet as noted above 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 DM-2 -Hold home metformin -Fasting blood sugar this morning is 132 and stable -SSI -Accu-Cheks as ordered Hyperlipidemia -Continue home simvastatin BPH with obstruction -Continue home Flomax Allergies -Continue home Singulair Hypertension -continue home metoprolol -Continue lisinopril -Continue home Lasix Hypothyroidism -TSH within normal limits -Continue home levothyroxine Schizophrenia -Continue home Clozaril -Continue home Tegretol -Continue home Cogentin -Continue home Ativan -Continue home olanzapine DVT prophylaxis -Subcu Lovenox twice daily due to BMI greater than 40 CODE STATUS -DNR CCA with no intubation per records from ECF Disposition: -Probable discharge tomorrow -He was able to be on room air at rest but did desat to 89% with exertion. I would like to see him, but little bit with exertion prior to sending him back tooid readmission Charges/Coding Visit Charges Inpatient E&M: 74817 Subs Hosp L2 12/11/23 1353 <Electronically signed by Jenna Howell DO> Cosigner Signature (if applicable): CC: ~ Signed [facility] Work Phone: History and physical note 12-10-2023 Note Date & Type Note Facility 12-10-2023 History and physi julieta note Note Date/Time December 10, 2023 11:02am [facility] Medical Records Department [address] [place] [address] H&P Exam - Hospitalist 12/10/23 1059 MR#: [id number] Acct: [id number] Name: FAYE TRINIDAD V Rep #:[id number] : 1955 68 From: Jenna Howell DO PCP: Dr. Jaylen Win MD Status:ADM IN Location: [facility] [place] [id number] HPI - General General Date of Admission: 12/10/23 Date of Service: 12/10/23 Chief Complaint: Shortness of breath HPI Narrative FAYE TRINIDAD, is a 68 M who presented to the emergency department at [facility] on 12/10/2023 with shortness of breath. He is currently a resident at [facility] and they have an outbreak of influenza. Per report from [facility] he had a pulse ox of about 79% on roomair and then it jumped up to 96% on 2 L nasal cannula. He was given a breathingtreatment prior to arrival. Patient indicated on presentation he had not been well for about a week. He denies fever but stated he has had a cough with some nausea and intermittent vomiting and diarrhea. 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 On presentation he was found of a temperature of 99.3, blood pressure was 97/30,respiratory was 24 and oxygen saturation here was initially 92% on room air. His CBC shows a normal white count with a chronic anemia that is stable and a left shift with an 87.8% neutrophilia. Coags were normal. His chemistry panel showed mild hyponatremia that appears to be chronic and likely precipitated fromhis psych medications as well as an elevated BUN/creatinine at 27 and 1.42 with apparent baseline of 1.0-1.2. His glucose was mildly elevated at 135. Lactic acid was normal. Chest x-ray showed a patchy left perihilar and left lower lobeinfiltrate. Rapid flu was positive on presentation. He was given aerosols and started on antibiotics in the emergency department andrequest for admission was made. [facility] Medical History Diabetes mellitus type II GERD History of Lynn's palsy History of COPD History of diabetes mellitus Hypertension Hypothyroidism Schizophrenia Home Medications acetaminophen 500 mg tablet 1,000 mg PO TID 03/20/14 [History Last Taken Unknown] carbamazepine 200 mg tablet (Tegretol) 200 mg PO 4X/DAY 03/20/14 [History Last Taken Unknown] clozapine 100 mg tablet (Clozaril) 100 mg PO BID SCHIZOPHRENIA 03/20/14 [History Last Taken Unknown] duloxetine 20 mg capsule,delayed release 20 mg PO DAILY 03/20/14 [History Last Taken Unknown] famotidine 20 mg tablet 20 mg PO BID 03/20/14 [History Last Taken Unknown] fluticasone 250 mcg-salmeterol 50 mcg/dose blistr powdr for inhalation (Advair Diskus) 1 puff inhalation BID 03/20/14 [History Last Taken Unknown] levothyroxine 75 mcg tablet 75 mcg PO DAILY 03/20/14 [History Last Taken Unknown] lisinopril 2.5 mg tablet 2.5 mg PO DAILY 03/20/14 [History Last Taken Unknown] metformin 500 mg tablet 1,000 mg PO BID 03/20/14 [History Last Taken Unknown] metoprolol succinate 25 mg tablet,extended release 24 hr 12.5 mg PO DAILY 03/20/14 [History Last Taken Unknown] simvastatin 40 mg tablet 40 mg PO QHS 03/20/14 [History Last Taken Unknown] albuterol sulfate 90 mcg/actuation aerosol inhaler (ProAir HFA) 2 puff inhalation Q4H PRN PRN Wheezing 03/21/14 [History Last Taken Unknown] magnesium hydroxide 400 mg/5 mL oral suspension 30 ml PO DAILY PRN Constipation 03/21/14 [History Last Taken Unknown] calcium carbonate 500 mg calcium (1,250 mg) tablet 500 mg PO BID 03/21/18 [History Last Taken Unknown] montelukast 10 mg tablet 10 mg PO DAILY 03/21/18 [History Last Taken Unknown] tamsulosin 0.4 mg capsule 0.4 mg PO DAILY 03/21/18 [History Last Taken Unknown] albuterol sulfate 2.5 mg/3 mL (0.083 %) solution for nebulization 2.5 mg inhalation Q4H PRN shortness of breath or wheezing 12/10/23 [History Last Taken Unknown] aluminum-mag hydroxide-simethicone 200 mg-200 mg-20 mg/5 mL oral susp (Antacid) 30 ml PO Q4H PRN GI UPSET 12/10/23 [History Last Taken Unknown] aspirin 81 mg tablet,delayed release 81 mg PO DAILY 12/10/23 [History Last Taken Unknown] benztropine 0.5 mg tablet 0.5 mg PO DAILY 12/10/23 [History Last Taken Unknown] bisacodyl 10 mg rectal suppository (Dulcolax (bisacodyl)) 10 mg AR DAILY PRN constipation 12/10/23 [History Last Taken Unknown] cholecalciferol (vitamin D3) 1,250 mcg (50,000 unit) capsule 1,250 mcg PO TU 12/10/23 [History Last Taken Unknown] clozapine 100 mg tablet 500 mg PO QHS SCHIZOPHRENIA 12/10/23 [History Last Taken Unknown] docusate sodium 100 mg tablet 100 mg PO DAILY CONSTIPATION 12/10/23 [History Last Taken Unknown] folic acid 400 mcg tablet 400 mcg PO DAILY 12/10/23 [History Last Taken Unknown] furosemide 20 mg tablet 20 mg PO DAILY 12/10/23 [History Last Taken Unknown] ibuprofen 400 mg tablet (IBU) 400 mg PO Q6H PRN pain 12/10/23 [History Last Taken Unknown] lorazepam 1 mg tablet (Ativan) 1 mg PO TID 12/10/23 [History Last Taken Unknown] nicotine (polacrilex) 2 mg buccal lozenge 2 mg PO Q2H 12/10/23 [History Last Taken Unknown] nicotine 10 mg inhalation cartridge (Nicotrol) 1 inh inhalation Q2H PRN nicotinecravings 12/10/23 [History Last Taken Unknown] olanzapine 15 mg tablet 15 mg PO QHS 12/10/23 [History Last Taken Unknown] omega-3 fatty acids 1,000 mg capsule 1,000 mg PO BID CHOLESTEROL 12/10/23 [History Last Taken Unknown] oseltamivir 75 mg capsule (Tamiflu) 75 mg PO BID 12/10/23 [History Last Taken Unknown] sodium chloride 1,000 mg soluble tablet 1,000 mg PO BID 12/10/23 [History Last Taken Unknown] white petrolatum 44 % topical ointment (DermaPhor) 1 ea topical PRN DRY SKIN 12/10/23 [History Last Taken Unknown] Allergy/AdvReac Type Severity Reaction Status Date / Time No Known Allergies Allergy Verified 12/10/23 09:00 unable to obtain unable to obtain Social History Smoking Status: Light Smoker (<10/day) ROS ROS Narrative Speech is fairly unintelligible and patient is somewhat confused so review of systems was extremely difficult and patient was not able to contribute much at this time Vital Signs Vital Signs Vital Signs: 12/10/23 08:55 12/10/23 08:59 12/10/23 09:42 Temperature 99.3 F H 99.3 F H Temperature Source Oral Oral Pulse Rate 92 92 87 Respiratory Rate 24 H 24 H 22 H Respiratory Effort Respiratory Depth Respiratory Pattern Blood Pressure 97/30 L 97/30 L 113/62 Blood Pressure Mean 52 52 79 Pulse Ox 92 92 92 Oxygen Delivery Method Room Air Room Air Room Air 12/10/23 10:03 12/10/23 10:03 12/10/23 10:05 Temperature 99.3 F H Temperature Source Temporal Pulse Rate 86 86 Respiratory Rate 21 H 21 H Respiratory Effort Short of Breath Respiratory Depth Normal Respiratory Pattern Tachypnea Blood Pressure 112/64 112/64 Blood Pressure Mean 80 80 Pulse Ox 91 92 Oxygen Delivery Method Room Air Room Air Room Air Weight Weight: 97.4 kg Body Mass Index (BMI) 40.6 Physical Exam Const alert, no apparent distress and well nourished; Negative for average body habitus or healthy appearing Constitutional Narrative: Mild confusion, speech is garbled which is his baseline due to history of Lynn'spalsy and psychiatric disorder, morbidly obese, male, sitting up in bed, very pleasant and eye contact is good, nursing at bedside, currently pillows comfortable and nontoxic overall. General Appearance: cooperative HEENT normocephalic, head/scalp atraumatic and hearing grossly normal bilaterally HEENT Narrative: Mallampati 4, large tongue, no thrush, edentulous Eyes PERRL, EOMs intact bilaterally and conjunctivae normal Eyes Narrative: No scleral icterus Neck no lymphadenopathy and supple Neck Narrative: Trachea midline, no thyroid enlargement Resp no retractions, no use of accessory muscles and No clear to auscultation bilaterally Resp Narrative: Mild tachypnea, scattered end expiratory wheezing diffusely Auscultation: wheezes; Negative for rales or rhonchi Cardio regular rate, regular rhythm, S1 normal heart sound, S2 normal heart sound, no murmurs, no rub, no gallops and no clicks GI normal to inspection, nondistended, normoactive bowel sounds, soft to palpation and non-tender Extremity no clubbing, cyanosis or edema Extremity Narrative: Pedal pulses are 2+, feet are considerably dry and have extensive callus formation Skin no rashes or lesions noted, no wounds, skin turgor normal, no jaundice, no petechiae and no mottling Neuro No CN's II-XII intact bilaterally, moves all extremities and no focal motor deficits Neuro Narrative: Follows commands well but speech is difficult to understand, chronic facial droop on the right, no significant weakness noted Sensorium / Orientation: awake, alert and oriented to person Speech: Negative for speech normal Psych affect normal Psych Narrative: Very pleasant, interacts appropriately Results Lab / Micro Data 12/10/23 09:16 12/10/23 09:16 Labs: Laboratory Results - last 24 hr 12/10/23 09:16: WBC 9.1, RBC 3.48 L, Hgb 10.5 L, Hct 31.6 L, MCV 90.8, MCH 30.2,MCHC 33.2, RDW Std Deviation 44.8 H, RDW Coeff of Reid 13.4, Plt Count 233, MPV 9.0, Immature Gran % (Auto) 0.400, Neut % (Auto) 87.8 H, Lymph % (Auto) 4.5 L, Morrill % (Auto) 7.1, Eos % (Auto) 0.0, Baso % (Auto) 0.2, Absolute Neuts (auto) 8.0 H, Absolute Lymphs (auto) 0.41 L, Nucleated RBC % 0, PT 13.9, INR 1.1, APTT 32.4, Sodium 131 L, Potassium 4.3, Chloride 97 L, Carbon Dioxide 26.0, Anion Gap8, BUN 27 H, Creatinine 1.42 H, Estim Creat Clear Calc 50.22, Est GFR (MDRD) Af Amer 64, Est GFR (MDRD) Non-Af 53 L, BUN/Creatinine Ratio 19.0, Glucose 135 H, Lactic Acid 2.0, Calcium 8.8, Total Bilirubin 0.60, AST 36, ALT 31, Alkaline Phosphatase 88, Total Protein 7.4, Albumin 3.1 L, Globulin 4.3 H, Albumin/Globulin Ratio 0.7 L Micro: Microbiology 12/10/23 09:15 Mucosa - Nose SARS-CoV-2, Influenza & RSV (PCR) - Final Influenzae A Rhythm Strip Rhythm Strip: Sinus Rhythm Rate: 90 Ectopy: None Imaging Radiology Impression Chest X-Ray 12/10/23 09:15 IMPRESSION: Patchy left perihilar and left lower lobe infiltrate. Electronically Signed: Cleve Clarke MD at 10:15 EDT , Assessment & Plan Assessment/Plan (1) Pneumonia: (2) Influenza A: (3) Anemia: (4) Hypoxia: (5) Acute dehydration: (6) Hyponatremia: (7) Elevated serum creatinine: (8) COPD with acute exacerbation: PLAN: Plan Acute hypoxic respiratory failure secondary to viral pneumonia plus minus bacterial superinfection/acute exacerbation of COPD -Patient was found to be hypoxic on room air at his extended care facility with an oxygen saturation 79% and improved to 96 on 2 L nasal cannula -Wean oxygen as able -Influenza A is positive -Patient was started on Tamiflu as an outpatient will continue -Check respiratory viral panel -Check strep pneumo and Legionella antigens -Will cover with ceftriaxone and azithromycin for now -Steroids 40 every 8 -Aggressive pulmonary toilet -Incentive spirometry and Acapella if patient can participate -Check sputum culture if able to be produced Hyponatremia -Appears to be chronic and likely related to his baseline psychiatric medications -Continue home sodium chloride tablets Anemia -Appears to be chronic -Check iron studies -No acute workup needed any further at this time Elevated serum creatinine -Admission serum creatinine slightly above baseline and appears to be related todehydration -Gentle hydration -Repeat lab in a.m. -Hold home ibuprofen COPD -Hold home inhalers -Pulmonary toilet as noted above 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 DM-2 -Hold home metformin -SSI -Accu-Cheks as ordered Hyperlipidemia -Continue home simvastatin BPH with obstruction -Continue home Flomax Allergies -Continue home Singulair Hypertension -continue home metoprolol -Continue lisinopril -Continue home Lasix Hypothyroidism -Check TSH -Continue home levothyroxine Schizophrenia -Continue home Clozaril -Continue home Tegretol -Continue home Cogentin -Continue home Ativan -Continue home olanzapine DVT prophylaxis -Subcu Lovenox twice daily due to BMI greater than 40 CODE STATUS -DNR CCA with no intubation per records from [facility]CF Charges/Coding Visit Charges Inpatient E&M: 15012 Init Hosp L2 12/10/23 1830 <Electronically signed by Jenna Howell DO> Cosigner Signature (if applicable): CC: Dr. Jenna Howell DO; Dr. Jaylen Win MD~ Signed [facility] Work Phone: Discharge summary 12-10-2023 Note Date & Type Note Facility 12-10-2023 Discharge summary Note Date/Time December 10, 2023 9:13am [facility] Records Department [address] [place] [address] Emergency Department Summary 12/10/23 MR#: [id number] Acct: [id number] Name: FAYE TRINIDAD V Rep #:[id number] 2 : [id number] 68 From: Geronimo Corley MD PCP: Dr. Jaylen Win MD Status:[id number] History of Present Illness Chief Complaint: Shortness of Breath Informant: patient and EMS Onset/Context/Timing Onset: Today Context: gradual Timing: Continuous Current Severity: Moderate Maximum Severity: Moderate Associated Symptoms cough Chest Pain: Positive for None Narrative Narrative: 68-year-old male extensive past medical history of COPD, CHF, diabetes and Lynn's palsy. He is currently resides at [facility]. Reportedly today he had a room air pulse ox of 79% and it jumped up to 96% on 2L. He was given a breathing treatment prior to arrival. Patient states he has not felt well for a week. He denies any fever but states he said a cough with nausea, vomiting and diarrhea. PE Risk Factors: Negative for Cancer, OCP + Smoking + > 35, Prior DVT or PE, Recent surgery or Recent travel Prior similar symptoms: No Recent Illness/Hospitalization: No PFSH [facility] Medical History (Updated 12/10/23 @ 11:[address] Jenna Howell, DO) Diabetes mellitus type II GERD History of Lynn's palsy History of COPD History of diabetes mellitus Hypertension Hypothyroidism Schizophrenia Home Medications acetaminophen 500 mg tablet 500 mg PO TID 03/20/14 [History Last Taken Unknown] aspirin 81 mg chewable tablet 81 mg PO DAILY@0800 03/20/14 [History Last Taken Unknown] benztropine 2 mg tablet 1 mg PO DAILY 03/20/14 [History Last Taken Unknown] carbamazepine 200 mg tablet (Tegretol) 200 mg PO 4X/DAY 03/20/14 [History Last Taken Unknown] clozapine 100 mg tablet (Clozaril) 100 mg PO BID 03/20/14 [History Last Taken Unknown] clozapine 200 mg tablet 500 mg PO QHS 03/20/14 [History Last Taken Unknown] duloxetine 20 mg capsule,delayed release 20 mg PO DAILY 03/20/14 [History Last Taken Unknown] ergocalciferol (vitamin D2) 1,250 mcg (50,000 unit) capsule (Vitamin D2) 50,000 unit PO Q7D 03/20/14 [History Last Taken Unknown] famotidine 20 mg tablet 20 mg PO BID 03/20/14 [History Last Taken Unknown] fluticasone 250 mcg-salmeterol 50 mcg/dose blistr powdr for inhalation (Advair Diskus) 1 puff inhalation BID 03/20/14 [History Last Taken Unknown] folic acid 800 mcg tablet 1 mg PO DAILY 03/20/14 [History Last Taken Unknown] furosemide 40 mg tablet 20 mg PO DAILY 03/20/14 [History Last Taken Unknown] levothyroxine 75 mcg tablet 75 mcg PO DAILY 03/20/14 [History Last Taken Unknown] lisinopril 2.5 mg tablet 2.5 mg PO DAILY 03/20/14 [History Last Taken Unknown] lorazepam 0.5 mg tablet 1 mg PO TID 03/20/14 [History Last Taken Unknown] metformin 500 mg tablet 500 mg PO BIDCM 03/20/14 [History Last Taken Unknown] metoprolol succinate 25 mg tablet,extended release 24 hr 12.5 mg PO DAILY 03/20/14 [History Last Taken Unknown] olanzapine 20 mg tablet (Zyprexa) 15 mg PO DAILY 03/20/14 [History Last Taken Unknown] omega-3 fatty acids-fish oil 340 mg-1,000 mg capsule (Fish Oil) 1 ea PO DAILY 03/20/14 [History Last Taken Unknown] simvastatin 40 mg tablet 40 mg PO QHS 03/20/14 [History Last Taken Unknown] albuterol sulfate 90 mcg/actuation aerosol inhaler (ProAir HFA) 2 puff inhalation Q4H PRN PRN Wheezing 03/21/14 [History Last Taken Unknown] albuterol sulfate 90 mcg/actuation aerosol inhaler (Ventolin HFA) 2 puff inhalation Q3H PRN Wheezing 03/21/14 [History Last Taken Unknown] aluminum-mag hydroxide-simethicone 400 mg-400 mg-40 mg/5 mL oral susp (Mag-Al Plus Extra Strength) 30 ml PO Q4H PRN PRN Indigestion 03/21/14 [History Last Taken Unknown] magnesium hydroxide 400 mg/5 mL oral suspension 30 ml PO DAILY PRN PRN Constipation 03/21/14 [History Last Taken Unknown] tramadol 50 mg tablet 50 mg PO Q6H PRN PRN Pain 03/21/14 [History Last Taken Unknown] calcium carbonate 500 mg calcium (1,250 mg) tablet 500 mg PO BID 03/21/18 [History Last Taken Unknown] insulin glargine 100 unit/mL subcutaneous solution (Lantus U-100 Insulin) 5 unitsubcut QHS 03/21/18 [History Last Taken Unknown] montelukast 10 mg tablet 10 mg PO DAILY 03/21/18 [History Last Taken Unknown] sodium chloride 1 gram tablet 1 g PO BID 03/21/18 [History Last Taken Unknown] tamsulosin 0.4 mg capsule 0.4 mg PO DAILY 03/21/18 [History Last Taken Unknown] albuterol sulfate 2.5 mg/3 mL (0.083 %) solution for nebulization 2.5 mg inhalation Q4H PRN shortness of breath or wheezing 12/10/23 [History Last Taken Unknown] Allergy/AdvReac Type Severity Reaction Status Date / Time No Known Allergies Allergy Verified 12/10/23 09:00 Social History Smoking Status: Light Smoker (<10/day) ROS ROS ED ROS Narrative Cough. Nausea, vomiting diarrhea. Review of Systems ROS Unobtainable: Denies due to encephalopathy Constitutional Constitutional ED: Denies chills or fever(s) ENT ENT ED: Denies ear pain Cardiovascular Cardiovascular: Denies chest pain Respiratory/Chest Respiratory/Chest: Reports cough; Denies dyspnea Gastrointestinal Gastrointestinal: Reports diarrhea, nausea and vomiting; Denies abdominal pain, constipation or melena Genitourinary Genitourinary ED: Denies dysuria Musculoskeletal Musculoskeletal: Denies arthralgias Integumentary Denies abscess Neurologic Neurologic: Denies headache(s) Psychiatric Psychiatric: Denies anxiety Endocrine Endocrinology: Denies cold intolerance Hematologic/Lymphatic Hematologic/Lymphatic: Denies easy bleeding Allergic/Immunologic Allergic/Immunologic ED: Denies mouth swelling, tongue swelling or urticaria EXAM Physical Exam Narrative Exam Narrative: 68-year-old male vital signs are 6 show a initial blood pressure 97/30. He is hypotensive. Temperature nine 9.3. Pulse ox 92% on oxygen. Reportedly was 79%on room air earlier today. HEENT exam pupils round reactive light. No facial trauma. No facial droop. Moist mucous membranes. Neck nontender. No lymphadenopathy. Lungs coarse breath sounds bilaterally. No wheezing. No appreciable rhonchi. Heart regular rhythm rate about 90 no murmur. Chest wall and ribs nontender. Abdomen soft nontender. Moving all 4 extremities. Nontender no deformity. No edema. Neurologically he is awake. He is answeringquestions. He has no focal motor deficit except he does have right facial palsywith a history of Lynn's palsy. Const Vital Signs: 12/10/23 08:55 12/10/23 08:59 12/10/23 09:42 Temperature 99.3 F H 99.3 F H Temperature Source Oral Oral Pulse Rate 92 92 87 Respiratory Rate 24 H 24 H 22 H Respiratory Effort Respiratory Depth Respiratory Pattern Blood Pressure 97/30 L 97/30 L 113/62 Blood Pressure Mean 52 52 79 Pulse Ox 92 92 92 Oxygen Delivery Method Room Air Room Air Room Air 12/10/23 10:03 12/10/23 10:03 12/10/23 10:05 Temperature 99.3 F H Temperature Source Temporal Pulse Rate 86 86 Respiratory Rate 21 H 21 H Respiratory Effort Short of Breath Respiratory Depth Normal Respiratory Pattern Tachypnea Blood Pressure 112/64 112/64 Blood Pressure Mean 80 80 Pulse Ox 91 92 Oxygen Delivery Method Room Air Room Air Room Air Positive well nourished, well developed and obese; Negative for cachectic, contractures or unkempt General Appearance ED: well developed; Negative for unkempt, cachectic, contractures, NAD or pallor Nutritional Appearance: obese; Negative for cachectic HEENT Reports moist mucous membranes atraumatic; Negative for trauma or tenderness Eyes PERRL and EOMs intact bilaterally General Eye ED: Negative for pale conjunctiva or scleral icterus Neck no lymphadenopathy, supple, no meningeal signs and no JVD Lymph Lymphatic: Negative for other Resp normal respiratory effort and clear to auscultation bilaterally Effort and Inspection: Negative for pain with movement Auscultation: Negative for rales, rhonchi, wheezes or diminished lung sounds Cardio regular rate, regular rhythm, S1 normal heart sound, S2 normal heart sound and no murmurs Rate: Negative for bradycardia or tachycardic Rhythm: Negative for abnormal rhythm GI non-tender, non-distended and no masses Inspection: Negative for other Palpation: soft; Negative for tender, guarding or rebound tenderness present Back/Spine no CVA tenderness and normal to inspection General Back: Negative for CVA tenderness Extremity normal to inspection General Extremety ED: Negative for edema or tenderness General Extremity: Negative for edema Neuro No oriented x3 Neuro Narrative: Right facial droop. Sensorium / Orientation: alert, oriented to person and oriented to place; Negative for oriented to time Motor Exam: strength 5/5 throughout Psych mental status grossly normal Appearance: Negative for unkempt Attitude: No agitated Mood & Affect: Negative for depressed, anxious or tearful Skin no wounds General Skin Exam: Negative for jaundice or pallor Lesions: no lesions Rashes: no rashes Trauma: Negative for abrasion or laceration MDM MDM MDM Narrative Medical decision making narrative: 68-year-old male [facility] with[facility]pot[facility] 97/30 and hypoxic on room air at 79%. Due to his hypotension low-grade fever he meets the sepsis protocol be put to the sepsis protocol. Tylenolfor his fever. IV fluid bolus. Most likely will need to be admitted. Repeat exam at 10:40 AM patient resting comfortably. Currently is not hypoxic his pulse ox on room air is between 92 to 94%. He is in no respiratory distress. He is receiving IV fluids. He did not get the Tylenol because he hastrouble with potential aspiration. I have the hospitalist on page for admission. We will start the patient on IV antibiotics both Zithromax and Rocephin until proven whether he has pneumonia or not. History & Record Review Discussion w/independent historian: EMS personnel and Patient Additional record(s) reviewed:: Prior inpatient record, Prior outpatient record,Prior ED visit and Prior labs Lab Data Attestation: I reviewed the patient's lab results. Lab results narrative: CBC shows a normal white count 9.1. H&H 10.5 and 31.6. Platelets 233. Hemoglobin was previously 12.7. PT/INR 13 and 1. PTT 32. Electrolytes show sodium 131. Gap of 8. BUN 27 creatinine 1.42. Kidney function was previously normal. Glucose 135. Lactic acid 2.0. Liver enzymes unremarkable. COVID-negative. Flu a positive. Chest x-ray possible left hilar and left upper lobe infiltrate. Labs: Laboratory Results - last 24 hr 12/10/23 09:16 WBC 9.1 RBC 3.48 L Hgb 10.5 L Hct 31.6 L MCV 90.8 MCH 30.2 MCHC 33.2 RDW Std Deviation 44.8 H RDW Coeff of Reid 13.4 Plt Count 233 MPV 9.0 Immature Gran % (Auto) 0.400 Neut % (Auto) 87.8 H Lymph % (Auto) 4.5 L Morrill % (Auto) 7.1 Eos % (Auto) 0.0 Baso % (Auto) 0.2 Absolute Neuts (auto) 8.0 H Absolute Lymphs (auto) 0.41 L Nucleated RBC % 0 PT 13.9 INR 1.1 APTT 32.4 Sodium 131 L Potassium 4.3 Chloride 97 L Carbon Dioxide 26.0 Anion Gap 8 BUN 27 H Creatinine 1.42 H Estim Creat Clear Calc 50.22 Est GFR (MDRD) Af Amer 64 Est GFR (MDRD) Non-Af 53 L BUN/Creatinine Ratio 19.0 Glucose 135 H Lactic Acid 2.0 Calcium 8.8 Total Bilirubin 0.60 AST 36 ALT 31 Alkaline Phosphatase 88 Total Protein 7.4 Albumin 3.1 L Globulin 4.3 H Albumin/Globulin Ratio 0.7 L Radiography Chest X-Ray - ED: 1 View, Read by ED Physician, Heart, Mediastinum, Bony Structures, Chronic Changes and Left Infiltrate Diagnostic Testing: Clinical Impression(s) from Imaging Studies Chest X-Ray 12/10/23 09:15 IMPRESSION: Patchy left perihilar and left lower lobe infiltrate. Electronically Signed: Cleve Clarke MD at 10:15 EDT , Chest x-ray, portable, single view interpreted both by myself and the radiologist shows a left hilar and left upper lobe possible infiltrate. Rhythm Strip Rhythm Strip: Sinus Rhythm Rate: 90 Ectopy: None EKG Initial EKG: Attestation: I personally reviewed and interpreted this EKG as follows: Interpretation: Sinus Rhythm and No Acute Injury Pattern Comments: Normal sinus rhythm rate of 90 no acute signs of AL or ischemia. Right bundle branch block. Discharge Plan Dx/Rx/DC Orders Clinical Impression: Acute kidney injury, Acute dehydration, History of COPD, Influenza A, Anemia, Hypoxia, History of Lnyn's palsy, History of diabetes mellitus, Pneumonia Disposition Disposition: [facility] What to do if you have Problems For any increased pain, shortness of breath, bleeding, nausea or vomiting, chestpain, or any unexpected problems, contact your Primary Care Provider. Call [facility] ([phone]) or report to the closest Emergency Room. Call 911 if necessary. 12/10/23 1617 <Electronically signed by Geronimo Corley MD> Cosigner Signature (if applicable): CC: Dr. Jaylen Win MD ~ Signed [facility] Work Phone: Evaluation note Note Date & Type Note Facility Evaluation note Diagnosis Onset Date Acute dehydration acute Anemia acute Elevated serum creatinine ac havasupai Hyponatremia acute Hypoxia acute Influenza A acute Pneumonia acute COPD with acute exacerbation [facility] Work Phone: Evaluation note Note Date & Type Note Facility Evaluation note Diagnosis Onset Date Acute dehydration acute COPD with acute exacerbation acute Elevated serum creatinine ac havasupai Hyponatremia acute Hypoxia acute Influenza A acute Pneumonia acute Anemia [facility] Work Phone: Summary Purpose Family History No Family History Records Found Relationship Condition Age at Onset Recorded Date/T martínez Unknown Family History?No pertinent history Unkno wn March 21, 2014 11:55am Advance Directives No Advanced Directives Records Found Advance Directive Response Recorded Date/ Time Advance Directives No March 20 11:28pm Living Will Yes December 10, 2023 9:01am Power of Equine Vet Yes December 09 9:01am Name of Medical Power of Equine Vet RUPESH December 10, 2023 9:01am Advance Directive Response Recorded Date/ Time Name of Medical Power of Equine Vet RUPESH December 10, 2023 2:47pm Advance Directives No March 20 11:28pm Living Will Yes December 10, 2023 2:47pm Power of Equine Vet Yes December 09 2:47pm Chief Complaint and Reason for Visit Chief Complaint ACUTE HYPOXIA 2/2 IN FLUENZA A Reason for Visit Acute dehydration Anemia Elevated serum creatinine Hyponatremia Hypoxia Influenza A Pneumonia COPD with acute exacerbation Chief Complaint ACUTE HYPOXIA 2/2 IN FLUENZA A ACUTE HYPOXIA 2/2 INFLUENZA A ACUTE HYPOXIA 2/2 INFLUENZA A ACUTE HYPOXIA 2/2 INFLUENZA A ACUTE HYPOXIA 2/2 INFLUENZA A Reason for Visit Acute dehydration COPD with acute exacerbation Elevated serum creatinine Hyponatremia Hypoxia Influenza A Pneumonia Anemia Additional Source Comments (unrecognized sect ion and content) No Status Records FoundNo Status Records Found INFORMATION SOURCE (unrecogn ized section and content) DATE CREATED AUTHOR 03/25/2018 [facility] DATE CREATED AUTHOR AUTHOR'S ORGANIZ ATION 12/18/2023 [facility] Care Teams (unrecognized sec tion and content) Team Status: Active Member Role Status Dates Dr. Jaylen Win MD Family Provider Active Dr. Jaylen Win MD Primary Care Provider Active Team Status: Active Member Role Status Dates Dr. Jaylen Win MD Primary Care Provider Active Dr. Geronimo Corley MD Emergency Provider Active Dr. Jenna Howell DO Admit Provider, Attending Provide r Active Team Status: Active Member Role Status Dates Dr. Jaylen Win MD Primary Care Provider Active Dr. Geronimo Corley MD Emergency Provider Active Dr. Jenna Howell DO Admit Provider, Att ending Provider, Other Provider Active Team Status: Active Member Role Status Dates Dr. Jaylen Win MD Primary Care Provider Active Dr. Geronimo Corley MD Emergency Provider Active Dr. Jenna Howell DO Admit Provider, Other Provider Ac tive Dr. Aleksandar Gomez DO Attending Provider, Other Pro vider Active Team Status: Inactive Member Role Status Dates Dr. Jaylen Win MD Primary Care Provider Active Dr. Geronimo Corley MD Emergency Provider Active Dr. Jenna Howell DO Admit Provider, Other Provider Ac tive Dr. Aleksandar Gomez DO Attending Provider Active Goals (unrecognized section and content) Goals may be documented in a n alternate section FOR RECORDS PERTAINING TO PATIENTS WHO ARE [...] BE BASED ON THE PRIMARY CLINICAL RECORDS. [facility] [facility]. provides no warranty or guarantee of the accuracy or completeness of information in this document.
[2025-03-19 23:58] VITALS: BP 85/51; PULSE 81; RESP 19; TEMP 36.8; O2SAT 92
--- NOTE | 2025-03-20 00:16 | ED.RN ---
Nurse at nursing facility called to speak with the RN yelling why didn't you do any testing? the sister is yelling at us stating you guys are doing nothing to treat him. RN explains to nurse- Dr. Silva called his sister who is a POA and signed the DNR that he has a DNR in place. She should consider hospice at this time. no further testing will be done. Nurse yelling can you please do something before he leaves? Rn states he has already left the emergency room. nurse hangs up.
== END 2025-03-20 00:11 | disposition home or self-care (01) ==
PROVIDERS: Emergency Provider Emergency Medicine; PCP Family Medicine; Visit Provider Emergency Medicine
DX: I95.9 Hypotension, unspecified (principal); F20.9 Schizophrenia, unspecified; J44.9 Chronic obstructive pulmonary disease, unspecified; E11.9 Type 2 diabetes mellitus without complications; I10 Essential (primary) hypertension; Z66 Do not resuscitate; Z79.51 Long term (current) use of inhaled steroids; Z79.84 Long term (current) use of oral hypoglycemic drugs; Z79.899 Other long term (current) drug therapy; E03.9 Hypothyroidism, unspecified; Z79.82 Long term (current) use of aspirin
CPT/HCPCS: 82962; 99284

== ENCOUNTER 2025-03-22 11:17 | Inpatient (IN) | payer MEDICAID, SELFPAY ==
[2025-03-22] VITALS (9 sets, daily range): BP systolic 96–151; BP diastolic 68–104; PULSE 96–104; RESP 15–24; TEMP 36–36.7; O2SAT 94–100; BMI 39.9; BMI 41.7
[2025-03-22 11:51] LABS: Bedside Glucose 142 mg/dL (74-106)
[2025-03-22 11:57] LABS: Absolute Lymphocyte Count 1.44 X10^3/uL (0.83-4.51); Absolute Neutrophil Count 13.8 X10^3/uL (2.0-7.7); Basophil# 0.09 X10^3/uL; Basophil% 0.5 % (0-1); Differential Indicated SCAN CRITERIA MET; Hematocrit 32.8 % (40-54); Lymphocyte # 1.44 X10^3/ul (0.83-4.51); Lymphocyte % 8.8 % (19-41); Mean Corp Hgb Conc 33.5 g/dL (32-36); Mean Corpuscular Hgb 29.6 pg (27.0-32.0); Mean Corpuscular Volume 88.4 fL (80-94); Mean Platelet Vol. 9.5 fl (6.2-12.0); Monocyte# 0.85 X10^3/uL; Monocyte% 5.2 % (0-10); NRBC Flagged by Analyzer 0 % (0-5); POSITIVE MORPHOLOGY YES; Platelet Count 398 K/mm3 (150-450); RBC Distribution Width CV 14.3 % (11.6-14.6); RBC Distribution Width SD 45.5 fl (35.1-43.9); Red Blood Count 3.71 M/mm3 (4.6-6.2); White Blood Count 16.4 K/mm3 (4.4-11.0)
[2025-03-22] MEDS: 0.9% Normal Saline (1000mL) 1,000 ML 1000 ML IV (12:11)
--- NOTE | 2025-03-22 12:28 | EDS_ITS ---
HPI History of Present Illness Chief Complaint: Hypotension Narrative Narrative: Sent in from retirement facility for evaluation of vomiting. Vomiting for last couple days with ported bile. Was given fluids and Zofran at facility. History of dementia DNR [employer] from records as of 2018. Note was seen 3 days ago unresponsive reported hypotension was not hypotensive. Blood sugars normal. Physician spoke with sister who is the DPOA at that time, patient was sent back to facility. Facilities had him on IV Rocephin. Additional history of schizophrenia, hypertension, diabetes Prior similar symptoms: Yes PFSH [facility] Medical History Pneumonia History of diabetes mellitus History of Lynn's palsy History of COPD Schizophrenia Hypothyroidism Hypertension GERD Diabetes mellitus type II Home Medications ?Medication ?Instructions ?Recorded ?Last Taken ?Type acetaminophen 500 mg tablet 1,000 mg PO TID 03/20/14 U nknown History carbamazepine 200 mg tablet 200 mg PO 4X/DAY 03/20/14 Unknown History (Tegretol) clozapine 100 mg tablet (Clozaril) 100 mg PO BID SCHIZ OPHRENIA 03/20/14 Unknown History duloxetine 20 mg capsule,delayed 20 mg PO DAILY Unknown History release fluticasone 250 mcg-salmeterol 50 1 puff inhalation BI D 03/20/14 Unknown History mcg/dose blistr powdr for inhalation (Advair Diskus) levothyroxine 75 mcg tablet 75 mcg PO DAILY 03/20/14 U nknown History lisinopril 2.5 mg tablet 2.5 mg PO DAILY 03/20/14 Unk nown History metformin 500 mg tablet 1,000 mg PO BID 03/20/14 Unk nown History metoprolol succinate 25 mg 12.5 mg PO DAILY 03/20/14 U nknown History tablet,extended release 24 hr simvastatin 40 mg tablet 40 mg PO QHS 03/20/14 Unknow n History magnesium hydroxide 400 mg/5 mL 30 ml PO DAILY PRN Con stipation 03/21/14 Unknown History oral suspension calcium carbonate 500 mg PO BID 03/21/18 Unkno wn History tamsulosin 0.4 mg capsule 0.4 mg PO DAILY 03/21/18 Unk nown History albuterol sulfate 2.5 mg/3 mL 2.5 mg inhalation Q4H CO N 12/10/23 Unknown History (0.083 %) solution for nebulization shortness of breat h or wheezing aluminum-mag hydroxide-simethicone 30 ml PO Q4H PRN GI UPSET 12/10/23 Unknown History 200 mg-200 mg-20 mg/5 mL oral susp (Antacid) aspirin 81 mg tablet,delayed 81 mg PO DAILY 12/10/23 U nknown History release benztropine 0.5 mg tablet 0.5 mg PO DAILY 12/10/23 Unk nown History bisacodyl 10 mg rectal suppository 10 mg CO DAILY PRN constipation 12/10/23 Unknown History (Dulcolax (bisacodyl)) cholecalciferol (vitamin D3) 1,250 1,250 mcg PO TU Unknown History mcg (50,000 unit) capsule clozapine 100 mg tablet 400 mg PO QHS SCHIZOPHRENIA 12/10/23 Unknown History docusate sodium 100 mg tablet 100 mg PO DAILY CONSTIPA TION 12/10/23 Unknown History folic acid 400 mcg tablet 1 mg PO DAILY 12/10/23 Unkno wn History furosemide 20 mg tablet 20 mg PO DAILY 12/10/23 Unkn own History ibuprofen 400 mg tablet (IBU) 400 mg PO Q6H PRN pain 0 12/10/23 Unknown History nicotine (polacrilex) 2 mg buccal 2 mg PO Q2H 12/10/23 Unknown History lozenge nicotine 10 mg inhalation 1 inh inhalation Q2H PRN yuki otine 12/10/23 Unknown History cartridge (Nicotrol) cravings olanzapine 15 mg tablet 15 mg PO QHS 12/10/23 Unknow n History omega-3 fatty acids 1,000 mg 1,000 mg PO BID CHOLESTER OL 12/10/23 Unknown History capsule sodium chloride 1,000 mg soluble 1,000 mg PO BID 12/09 Unknown History tablet lorazepam 0.5 mg tablet 0.5 mg PO Q8H PRN PRN Agitat ion 12/13/23 Unknown Rx #10 tabs Allergy/AdvReac Type Severity Reaction Status Date / Time No Known Allergies Allergy Verified 03/19/25 23:05 Social History Smoking Status: Light Smoker (<10/day) ROS ROS ED ROS Narrative Unable due to patient's baseline condition he is not able to converse a clearly. EXAM Physical Exam Const Vital Signs: 03/22/25 11:20 03/22/25 11:27 03/22/25 13:18 Temperature 98.1 F Temperature Source Oral Pulse Rate 103 H 100 Respiratory Effort Short of Breath Respiratory Pattern Normal Blood Pressure 124/69 H 121/104 H Blood Pressure Mean 87 109 Pulse Ox 98 94 Oxygen Delivery Method Room Air Room Air Positive well nourished and well developed General Appearance ED: well developed and NAD HEENT Reports moist mucous membranes normocephalic and atraumatic Eyes General Eye ED: Yes normal appearance of both eyes Neck full ROM Chest Wall Chest: Negative for tenderness Resp normal respiratory effort and normal air movement Effort and Inspection: symmetric chest movement; Negative for respiratory distress Cardio regular rate, regular rhythm and no murmurs Peripheral Pulses: pulses 2+ throughout GI GI Narrative: Distention of abdomen no guarding or rebound bowel sounds appreciated. Palpation: Negative for guarding or rebound tenderness present Extremity normal to inspection General Extremety ED: Negative for edema or tenderness General Extremity: Negative for edema Neuro Neuro Narrative: Patient awake, trying to answer questions however incomprehensible. Sensorium / Orientation: awake MDM MDM MDM Narrative Medical decision making narrative: Interventions / MDM: Differential diagnosis: Bowel obstruction, vomiting, kidney injury Diagnosis considered but do not suspect: Pneumonia however x-ray negative. My EKG interpretation: N/A Imaging independently reviewed and interpreted by myself: CT abdomen pelvis IV contrast: Small bowel obstruction transition point mid ileal region per radiology. 1 view chest x-ray: No acute process. Also read by radiology. External documents reviewed: Reviewed ED visit 3 days ago noted he is DNR comfort care only reviewed ED note spoke with sister did not want any aggressive treatments therefore sent back to facility. Test considered but not ordered:N/A ED course: Patient sent in for evaluation of vomiting. He was given fluids Zofran at the facility. Reviewing the ED note for 3 days ago with comfort care only this was not placed on his paperwork today however was found in the system signed in 2018 by his sister Nicole, who is the DPOA. Blood glucose 142. Reached out to his sister discussed the comfort care status, she states she was called and told patient was sent here for vomiting. She states she is concerned of his pain and vomiting last couple days. I discussed comfort care concerns for symptomatic treatment versus aggressive treatment with testing and intervention which includes surgery. She states she is okay with this if this was help with symptoms. Therefore workup initiated with abdominal labs and CT scan. 1455: White count returned at 16. Hemoglobin 11. Cath urine obtained. Creatinine elevated at 3.61 BUN of 74 potassium of 4.5. New kidney injury com pared to November of last year in the normal range 0.9. He is continuing IV fluids. CT scan results concerning small bowel obstruction. He has had previous appendectomy and discussion with his sister was younger sounds like complicated issue with perforation. Discussed this with the sister, Nicole TAYLOR, who lives out of town 2 hours away he has not had a bowel obstruction in the past. She would want interventions to get him better including surgery. Of his kidneys not improved she is amenable to dialysis. Confirms that he does not speak much over the last few years. From her discussion, discussed with her sounds like she would prefer him DNR Comfort Care arrest. Hospitalist paged for discussion. I did discuss with on-call surgeon Dr. Nichole who was in surgery. With his kidney injury, he would like patient admitted to medicine. 1518: I spoke with Dr. Mansfield discussed patient's history conversations with the sister and findings. Patient be admitted to the medical floor for further management. Re-evaluation: stable Disposition discussed with patient/family/significant other: Sister BRANDON Case discussed with consulting clinician: General Surgery, hospitalist This note was generated with [employer] dictation software. It may contain incorrect words, spelling, and punctuation that were not noted in checking the note before signing. Lab Data Attestation: I reviewed the patient's lab results. Labs: Laboratory Results - last 24 hr 03/22/25 03/22/25 03/22/25 11:27 11:34 14:01 WBC 16.4 H RBC 3.71 L Hgb 11.0 L Hct 32.8 L MCV 88.4 MCH 29.6 MCHC 33.5 RDW Std Deviation 45.5 H RDW Coeff of Reid 14.3 Plt Count 398 MPV 9.5 Immature Gran % (Auto) 1.500 H Neut % (Auto) 84.0 H Lymph % (Auto) 8.8 L [place] % (Auto) 5.2 Eos % (Auto) 0.0 Baso % (Auto) 0.5 Absolute Neuts (auto) 13.8 H Absolute Lymphs (auto) 1.44 Nucleated RBC % 0 Platelet Estimate A Polychromasia 1+ Sodium 133 Potassium 4.5 Chloride 93 L Carbon Dioxide 20.0 L Anion Gap 19 H BUN 74 H Creatinine 3.61 H Estim Creat Clear Calc 19.30 L Est GFR (MDRD) Non-Af 18 L BUN/Creatinine Ratio 20.4 H Glucose 135 H Calcium 9.1 Total Bilirubin 0.36 AST 30 ALT 26 Alkaline Phosphatase 112 Total Protein 7.8 Albumin 3.7 Globulin 4.1 Albumin/Globulin Ratio 0.9 Lipase 13 Urine Color Yellow Urine Clarity Sl. Cloudy Urine pH 6.0 Ur Specific [place] 1.015 Urine Protein 30 H Urine Glucose (UA) Normal Urine Ketones Negative Urine Occult Blood 150 H Urine Nitrite Negative Urine Bilirubin Negative Urine Urobilinogen Normal Ur Leukocyte Esterase 25 H POC Glucose 142 H Radiography Diagnostic Testing: Clinical Impression(s) from Imaging Studies Chest X-Ray 03/22/25 13:15 IMPRESSION: Mild cardiomegaly. The lungs are clear. Reading Location: [id number] Abdomen/Pelvis CT 03/22/25 13:30 IMPRESSION: Small-bowel obstruction with air-fluid levels in distended stomach as described. The transition point is in the mid ileal region. Reading Location: [facility] Discharge Plan Dx/Rx/DC Orders Clinical Impression: Small bowel obstruction, Vomiting, Acute kidney injury, Dementia Disposition Disposition: Acute Care Hospital [facility]
[2025-03-22 12:47] LABS: Lipase 13 U/L (13-75)
[2025-03-22 13:00] LABS: ALB/GLOB Ratio 0.9 RATIO (0.9-2.4); AST(SGOT) 30 U/L (<=37); Alanine Aminotransfer ALT/SGPT 26 U/L (<=46); Albumin, Serum 3.7 g/dL (3.4-4.8); Alkaline Phosphatase 112 U/L (40-129); Anion Gap 19 (5-15); BUN 74 mg/dL (4-19); BUN/Creat Ratio 20.4 RATIO (10-20); Calcium,Total 9.1 mg/dL (7.6-11.0); Chloride 93 mmol/L (98-108); Creatinine, Serum 3.61 mg/dL (0.70-1.20); EST Glomerular Filtration Rate 18 (>60); Globulin 4.1 g/dL (2.2-4.2); Glucose 135 mg/dL (70-99); Potassium 4.5 mmol/L (3.3-5.1); Protein, Total 7.8 g/dL (5.9-8.4); Sodium Level 133 mmol/L (133-145); Total Bilirubin 0.36 mg/dL (0.00-1.30)
[2025-03-22 13:13] LABS: Platelet Estimate A (ADEQ); Polychromasia 1+
--- NOTE | 2025-03-22 13:15 | RAD_ITS ---
PROCEDURE: CHEST 1 VIEW (PORTABLE) 03/22/2025 REASON FOR EXAM: LEUKOCYTOSIS TECHNIQUE: Frontal view of the chest. COMPARISON: Prior study dated December 10, 2023. FINDINGS: Hardware: EKG electrodes are seen. Heart: Mild cardiomegaly Lungs: The lungs are clear. Bones: Degenerative changes are identified within the thoracic spine. Other: RAD/Chest 1 View (Portable) IMPRESSION: Mild cardiomegaly. The lungs are clear. Reading Location: [id number]
--- NOTE | 2025-03-22 13:30 | CT_ITS ---
PROCEDURE: ABDOMEN/PELVIS WITHOUT CONT 03/22/2025 REASON FOR EXAM: VOMITING, PAIN Hypotension. Dehydration. Green bile emesis. TECHNIQUE: ABDOMEN/PELVIS WITHOUT CONT Noncontrast technique limits evaluation of the abdominal and pelvic viscera. Coronal and Sagittal reconstruction series were provided. One or more dose reduction techniques were used (e.g., Automated exposure control, adjustment of the mA and/or kV according to patient size, use of iterative reconstruction technique). Dose report: CTDI volume: 20.12 mGy. DLP: 1114.35 mGy. COMPARISON: None FINDINGS: Lung bases: Increased markings at the lung bases with areas of coalescence suggestive of possible atelectasis. Liver: Normal size. No obvious mass. Gallbladder: The gallbladder is contracted or prior resection. Clinical correlation recommended. Spleen: Normal size. Pancreas: Diffuse fatty atrophy. Adrenals: Unremarkable Kidneys: Unremarkable Bladder: The urinary bladder is contracted. Diffuse bladder wall thickening. Bowel: The stomach is distended with fluid and residual food particles. There is evidence of small bowel dilatation with multiple air-fluid levels down to the mid ileal level. Increased markings in the peritoneal mesenteric fat suggestive of possible edematous changes. Small lymph nodes are seen within the peritoneum fat. Small amount of fecal material is seen throughout the colon. Distal small bowel obstruction should be ruled out. Appendix: Not identified. Lymph nodes: Unremarkable. Vasculature: Mild diffuse atherosclerotic calcifications are noted. Peritoneum / Retroperitoneum: Unremarkable. Bones: Spondylolysis of the pars interarticularis of the L5 vertebrae. No significant listhesis is seen. CT/Abdomen/Pelvis without Cont IMPRESSION: Small-bowel obstruction with air-fluid levels in distended stomach as described . The transition point is in the mid ileal region. Reading Location: [id number]
[2025-03-22 14:12] LABS: Bacteria 0 SEEN /hpf (None Seen); Mucous, Urine 0 SEEN /hpf (<or=2+)
[2025-03-22 14:46] LABS: Color, Urine Yellow (Yellow); Glucose, Dipstick Normal (Normal); Ketone-Dipstick Negative (Negative); Leukocyte Esterase-Dipstick 25 /ul (Negative); Nitrite-Dipstick Negative (Negative); Occult Blood-Urine 150 /ul (Negative); Protein-Dipstick 30 mg/dl (Negative); Specific Gravity, Urine 1.015 (1.002-1.030); Urine Bilirubin Dipstick Negative (Negative); Urine Clarity Sl. Cloudy (Clear); Urine Urobilinogen Normal (Normal)
[2025-03-22] MEDS: 0.9% Normal Saline (1000mL) 1,000 ML 150 ML IV ×2 (15:07→23:01)
[2025-03-22] MEDS: Oxymetazoline 0.05% 1 SPRAY SPRAY.BTL 2 SPRAY NASAL (15:08)
[2025-03-22 15:36] LABS: White Blood Cells 0-5 SEEN /hpf (0-5)
[2025-03-22 15:37] LABS: Red Blood Cells-Urine 0-5 SEEN /hpf (0-5); Squamous Epithelial Cells - UA 0-5 SEEN /hpf (0-5)
[2025-03-22] MEDS: Ondansetron 4 MG/2 ML Vial IV (15:47)
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
--- NOTE | 2025-03-22 15:50 | HP.PCM.HOS_ITS ---
HPI - General General Date of Service: 03/22/25 Chief Complaint: N/V HPI Narrative FAYE TRINIDAD, is a 69-year-old male history of schizophrenia, diabetes, hypertension, hypothyroidism, BPH, COPD, who presented [facility] ED 03/22/2025 for vomiting. 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 ED physician discussed with sister who does want interventions done for patient if it will make him feel better so is not ETHICS INSTRUCTOR but [facility]. Patient afebrile in the ED, heart rate 103, blood pressure 124/69, pulse ox 98% on room air. BMP revealed a BUN of 74 and a creatinine of 3.61 with a creatinine last year of 0.90. CBC with white blood cell count of 16.4, hemoglobin of 11. Chest x-ray with no acute process and CT of the abdomen obtained which demonstrated small bowel obstruction with air-fluid levels and distended stomach with a transition point in the mid ileal region. General surgeon recommended that patient be admitted to medicine given his kidney failure with surgery consult and he will be seen and evaluated in consultation so hospitalist contacted for admission. Patient speaks minimally which reportedly is at baseline and no family available at bedside at this time. He primarily complained that he was thirsty but denied abdominal pain, seems she denied nausea, cannot elicit any other history [facility] Medical History Pneumonia History of diabetes mellitus History of Lynn's palsy History of COPD Schizophrenia Hypothyroidism Hypertension GERD Diabetes mellitus type II Home Medications ?Medication ?Instructions ?Recorded ?Last Taken ?Type acetaminophen 500 mg tablet 1,000 mg PO TID 03/20/14 U nknown History carbamazepine 200 mg tablet 200 mg PO 4X/DAY 03/20/14 Unknown History (Tegretol) clozapine 100 mg tablet (Clozaril) 100 mg PO BID SCHIZ OPHRENIA 03/20/14 Unknown History duloxetine 20 mg capsule,delayed 20 mg PO DAILY Unknown History release fluticasone 250 mcg-salmeterol 50 1 puff inhalation BI D 03/20/14 Unknown History mcg/dose blistr powdr for inhalation (Advair Diskus) levothyroxine 75 mcg tablet 75 mcg PO DAILY 03/20/14 U nknown History lisinopril 2.5 mg tablet 2.5 mg PO DAILY 03/20/14 Unk nown History metformin 500 mg tablet 1,000 mg PO BID 03/20/14 Unk nown History metoprolol succinate 25 mg 12.5 mg PO DAILY 03/20/14 U nknown History tablet,extended release 24 hr simvastatin 40 mg tablet 40 mg PO QHS 03/20/14 Unknow n History magnesium hydroxide 400 mg/5 mL 30 ml PO DAILY PRN Con stipation 03/21/14 Unknown History oral suspension calcium carbonate 500 mg PO BID 03/21/18 Unkno wn History tamsulosin 0.4 mg capsule 0.4 mg PO DAILY 03/21/18 Unk nown History albuterol sulfate 2.5 mg/3 mL 2.5 mg inhalation Q4H MT N 12/10/23 Unknown History (0.083 %) solution for nebulization shortness of breat h or wheezing aluminum-mag hydroxide-simethicone 30 ml PO Q4H PRN GI UPSET 12/10/23 Unknown History 200 mg-200 mg-20 mg/5 mL oral susp (Antacid) aspirin 81 mg tablet,delayed 81 mg PO DAILY 12/10/23 U nknown History release benztropine 0.5 mg tablet 0.5 mg PO DAILY 12/10/23 Unk nown History bisacodyl 10 mg rectal suppository 10 mg MT DAILY PRN constipation 12/10/23 Unknown History (Dulcolax (bisacodyl)) cholecalciferol (vitamin D3) 1,250 1,250 mcg PO TU Unknown History mcg (50,000 unit) capsule clozapine 100 mg tablet 400 mg PO QHS SCHIZOPHRENIA 12/10/23 Unknown History docusate sodium 100 mg tablet 100 mg PO DAILY CONSTIPA TION 12/10/23 Unknown History folic acid 400 mcg tablet 1 mg PO DAILY 12/10/23 Unkno wn History furosemide 20 mg tablet 20 mg PO DAILY 12/10/23 Unkn own History ibuprofen 400 mg tablet (IBU) 400 mg PO Q6H PRN pain 0 12/10/23 Unknown History nicotine (polacrilex) 2 mg buccal 2 mg PO Q2H 12/10/23 Unknown History lozenge nicotine 10 mg inhalation 1 inh inhalation Q2H PRN yuki otine 12/10/23 Unknown History cartridge (Nicotrol) cravings olanzapine 15 mg tablet 15 mg PO QHS 12/10/23 Unknow n History omega-3 fatty acids 1,000 mg 1,000 mg PO BID CHOLESTER OL 12/10/23 Unknown History capsule sodium chloride 1,000 mg soluble 1,000 mg PO BID 12/09 Unknown History tablet lorazepam 0.5 mg tablet 0.5 mg PO Q8H PRN PRN Agitat ion 12/13/23 Unknown Rx #10 tabs Allergy/AdvReac Type Severity Reaction Status Date / Time No Known Allergies Allergy Verified 03/19/25 23:05 Social History Smoking Status: Light Smoker (<10/day) ROS ROS Narrative Unable to obtain full ROS due to patient's difficulty with communication Vital Signs Vital Signs Vital Signs: 03/22/25 11:20 03/22/25 11:27 03/22/25 13:18 Temperature 98.1 F Temperature Source Oral Pulse Rate 103 H 100 Respiratory Effort Short of Breath Respiratory Pattern Normal Blood Pressure 124/69 H 121/104 H Blood Pressure Mean 87 109 Pulse Ox 98 94 Oxygen Delivery Method Room Air Room Air Weight Weight: 95.7 kg Body Mass Index (BMI) 39.9 Physical Exam Narrative General: Alert, unable to assess orientation HEENT: Atraumatic Eyes: Anicteric, extraocular movements grossly intact Neck: Thick Respiratory: Seems to have some transmitted upper airway sounds, normal respiratory effort Cardiovascular: Regular rate and rhythm GI: Distended, did not appear overtly tender on palpation without any guarding Extremities: No significant pitting edema Musculoskeletal: Moving all extremities Neuro: No overt focal neurological deficits though patient unable to participate in full neuroexam Skin: No rashes appreciated Psych: Pleasant, attempts to be cooperative Results Lab / Micro Data 03/22/25 11:27 03/22/25 11:27 Labs: Laboratory Results - last 24 hr 03/22/25 11:27: WBC 16.4 H, RBC 3.71 L, Hgb 11.0 L, Hct 32.8 L, MCV 88.4, MCH 29.6, MCHC 33.5, RDW Std Deviation 45.5 H, RDW Coeff of Reid 14.3, Plt Count 398, MPV 9.5, Immature Gran % (Auto) 1.500 H, Neut % (Auto) 84.0 H, Lymph % (Auto) 8.8 L, [place] % (Auto) 5.2, Eos % (Auto) 0.0, Baso % (Auto) 0.5, Absolute Neuts (auto) 13.8 H, Absolute Lymphs (auto) 1.44, Nucleated RBC % 0, Platelet Estimate A, Polychromasia 1+, Sodium 133, Potassium 4.5, Chloride 93 L, Carbon Dioxide 20.0 L, Anion Gap 19 H, BUN 74 H, Creatinine 3.61 H, Estim Creat Clear Calc 19.30 L, Est GFR (MDRD) Non-Af 18 L, BUN/Creatinine Ratio 20.4 H, Glucose 135 H, Calcium 9.1, Total Bilirubin 0.36, AST 30, ALT 26, Alkaline Phosphatase 112, Total Protein 7.8, Albumin 3.7, Globulin 4.1, Albumin/Globulin Ratio 0.9, Lipase 13 03/22/25 11:34: POC Glucose 142 H 03/22/25 14:01: Urine Color Yellow, Urine Clarity Sl. Cloudy, Urine pH 6.0, Ur Specific [place] 1.015, Urine Protein 30 H, Urine Glucose (UA) Normal, Urine Ketones Negative, Urine Occult Blood 150 H, Urine Nitrite Negative, Urine Bilirubin Negative, Urine Urobilinogen Normal, Ur Leukocyte Esterase 25 H, Urine RBC 0-5 SEEN, Urine WBC 0-5 SEEN, Ur Squamous Epith Cells 0-5 SEEN, Urine Bacteria 0 SEEN, Urine Mucus 0 SEEN Imaging Radiology Impression Chest X-Ray 03/22/25 13:15 IMPRESSION: Mild cardiomegaly. The lungs are clear. Reading Location: [id number] Abdomen/Pelvis CT 03/22/25 13:30 IMPRESSION: Small-bowel obstruction with air-fluid levels in distended stomach as described. The transition point is in the mid ileal region. Reading Location: [facility] Assessment & Plan Assessment/Plan (1) Acute kidney injury: (2) Small bowel obstruction: (3) Vomiting: PLAN: Plan # Nausea and vomiting secondary to small bowel obstruction -CT of the abdomen in the ED demonstrated small bowel obstruction with air-fluid levels and distended stomach with transition point in the mid ileal region -N.p.o. -Surgery consult -IV fluids, supportive care #Acute kidney failure -Last available kidney function was November 2023 which showed a normal creatinine of 0.9 however today patient with creatinine of 3.61 and BUN of 74 with noted gap of 19 and a bicarb of 20 -Has been having a lot of nausea and vomiting poor p.o. intake which may be the cause or contributor -IV fluids -Urine studies - Will consult nephrology -I's and O's -Avoid nephrotoxic agents - Urine does not appear infected # History of schizophrenia -Unfortunately patient's medications will have to be held given his small bowel obstruction, resume these as soon as safe to do so given he is on Clozaril, Tegretol, olanzapine -Does take lorazepam as needed for agitation, will add this for agitation here #Type 2 diabetes mellitus -Glucose checks and sliding scale insulin #Chronic BPH with obstruction - Holding home medications given small bowel obstruction n.p.o. #Hx COPD -Continue home inhalers -Incentive spirometer #Hypothyroidism - Resume Synthroid once patient able to take p.o., if he will have prolonged n.p.o. can was consider IV Synthroid if necessary #DVT ppx: SCDs Lashay Mansfield MD Charges/Coding Visit Charges Inpatient E&M: 95153 Init Hosp L2
[2025-03-22 17:15] LABS: Lactic Acid 1.3 mmol/L (0.0-2.0)
[2025-03-22 18:11] LABS: Bedside Glucose 137 mg/dL (74-106)
[2025-03-22] MEDS: Budesonide Respules 0.5 MG/2 ML AMPUL.NEB. INHALATION (18:54)
[2025-03-22] MEDS: Albuterol 2.5 MG/3 ML VIAL.NEB. INHALATION (18:54)
[2025-03-23] VITALS (8 sets, daily range): BP systolic 141–159; BP diastolic 64–81; PULSE 98–111; RESP 16–24; TEMP 36.7–37.1; O2SAT 93–98
[2025-03-23 00:32] LABS: Bedside Glucose 134 mg/dL (74-106)
[2025-03-23 00:36] LABS: Urea Nitrogen, Urine 677 mg/dL (NO RANGE EST.); Urine Chloride < 20 mmol/L (Not Establ.); Urine Potassium 25.6 mmol/L (Not Establ.); Urine Sodium < 20 mmol/L (Not Establ.)
[2025-03-23] MEDS: Lorazepam 2 MG/ML WCH Syringe 0.5 MG IV (01:58)
[2025-03-23] MEDS: Ondansetron 4 MG/2 ML Vial IV (02:01)
--- NOTE | 2025-03-23 05:50 | RAD_ITS ---
PROCEDURE: ABD DECUB AND/OR ERECT(PORTABL 03/23/2025 REASON FOR EXAM: SMALL BOWEL OBSTRUCTION TECHNIQUE: ABD DECUB AND/OR ERECT(PORTABL COMPARISON: CT scan on 03/22/2025. FINDINGS: Mild bilateral basilar atelectatic pulmonary changes. Moderate diffuse distention/dilatation of the small bowels, probably secondary to partial small bowel obstruction, slightly decreased. There is no demonstrated free abdominal air. Normal visualized liver. Normal visualized spleen. Normal visualized kidneys. The soft tissue structures of the pelvis are unremarkable. Mild diffuse spondylosis. RAD/Abd Decub and/or Erect(Portabl IMPRESSION: Mild bilateral basilar atelectatic pulmonary changes. Moderate diffuse distention/dilatation of the small bowels, probably secondary to partial small bowel obstruction, slightly decreased. Reading Location: [facility] [address]
[2025-03-23 05:52] LABS: Absolute Lymphocyte Count 1.74 X10^3/uL (0.83-4.51); Absolute Neutrophil Count 12.1 X10^3/uL (2.0-7.7); Basophil# 0.05 X10^3/uL; Basophil% 0.3 % (0-1); Eosinophil# 0.02 X10^3/uL; Eosinophils% 0.1 % (0-5); Hematocrit 30.9 % (40-54); Hemoglobin 10.2 g/dL (13.0-16.5); Lymphocyte # 1.74 X10^3/ul (0.83-4.51); Lymphocyte % 11.4 % (19-41); Mean Corpuscular Hgb 29.2 pg (27.0-32.0); Mean Corpuscular Volume 88.5 fL (80-94); Mean Platelet Vol. 9.3 fl (6.2-12.0); Monocyte# 0.83 X10^3/uL; Monocyte% 5.4 % (0-10); NRBC Flagged by Analyzer 0 % (0-5); Neutrophil # 12.07 X10^3/uL (2.7-7.7); Neutrophil % 79.4 % (47-70); Platelet Count 384 K/mm3 (150-450); RBC Distribution Width CV 14.4 % (11.6-14.6); Red Blood Count 3.49 M/mm3 (4.6-6.2); White Blood Count 15.2 K/mm3 (4.4-11.0)
[2025-03-23] MEDS: 0.9% Normal Saline (1000mL) 1,000 ML 150 ML IV ×3 (06:02→19:08)
[2025-03-23] MEDS: Budesonide Respules 0.5 MG/2 ML AMPUL.NEB. INHALATION ×2 (06:34→20:36)
[2025-03-23] MEDS: Albuterol 2.5 MG/3 ML VIAL.NEB. INHALATION ×3 (06:34→20:33)
[2025-03-23 06:46] LABS: AST(SGOT) 23 U/L (<=37); Alanine Aminotransfer ALT/SGPT 24 U/L (<=46); Albumin, Serum 3.5 g/dL (3.4-4.8); Alkaline Phosphatase 128 U/L (40-129); Anion Gap 15 (5-15); BUN 65 mg/dL (4-19); BUN/Creat Ratio 25.7 RATIO (10-20); Calcium,Total 8.8 mg/dL (7.6-11.0); Carbon Dioxide 23.4 mmol/L (21.0-32.0); Chloride 100 mmol/L (98-108); Creatinine, Serum 2.51 mg/dL (0.70-1.20); EST Glomerular Filtration Rate 27 (>60); Estimated Creatinine Clearance 27.41 ml/min (50-250); Globulin 3.5 g/dL (2.2-4.2); Glucose 132 mg/dL (70-99); Protein, Total 6.9 g/dL (5.9-8.4); Sodium Level 139 mmol/L (133-145); Total Bilirubin 0.32 mg/dL (0.00-1.30)
[2025-03-23 06:47] LABS: Thyroid Stim Hormone (TSH) 0.389 uIU/mL (0.300-4.200)
--- NOTE | 2025-03-23 07:00 | PN.SURG_ITS ---
Subjective Subjective Patient evaluated resting comfortably in bed. Patient is very challenging to understand. He answers no to having any abdominal pain. He does not that when he eats too much he notes pain and vomiting. He denies gas and unsure if he had a bowel movement. Objective Data Objective Data Vital Signs: Vital Signs Temp Pulse Resp BP Pulse Ox O2 Del Method 98.1 F 98 20 H 146/64 H 93 Room Air 03/23/25 02:03 03/23/25 06:35 03/23/25 06:35 03/23/25 02:03 03/23/25 04:00 03/23/25 04:00 Oxygen Delivery Method Room Air Weight: 213 lb 12.8 oz Body Mass Index (BMI) 41.7 Intake & Output: Intake and Output for Last 24 Hours 03/21/25 03/22/25 03/23/25 23:59 23:59 23:59 Intake Total 1999 / 1999 1000 / 1000 Output Total 0 / 250 650 / 650 Balance 2000 / 1750 350 / 350 Lab / Micro Data 03/23/25 05:15 03/23/25 05:15 Labs: Laboratory Results - last 24 hr 03/22/25 11:27: WBC 16.4 H, RBC 3.71 L, Hgb 11.0 L, Hct 32.8 L, MCV 88.4, MCH 29.6, MCHC 33.5, RDW Std Deviation 45.5 H, RDW Coeff of Reid 14.3, Plt Count 398, MPV 9.5, Immature Gran % (Auto) 1.500 H, Neut % (Auto) 84.0 H, Lymph % (Auto) 8.8 L, [place] % (Auto) 5.2, Eos % (Auto) 0.0, Baso % (Auto) 0.5, Absolute Neuts (auto) 13.8 H, Absolute Lymphs (auto) 1.44, Nucleated RBC % 0, Platelet Estimate A, Polychromasia 1+, Sodium 133, Potassium 4.5, Chloride 93 L, Carbon Dioxide 20.0 L, Anion Gap 19 H, BUN 74 H, Creatinine 3.61 H, Estim Creat Clear Calc 19.30 L, Est GFR (MDRD) Non-Af 18 L, BUN/Creatinine Ratio 20.4 H, Glucose 135 H, Calcium 9.1, Total Bilirubin 0.36, AST 30, ALT 26, Alkaline Phosphatase 112, Total Protein 7.8, Albumin 3.7, Globulin 4.1, Albumin/Globulin Ratio 0.9, Lipase 13 03/22/25 11:34: POC Glucose 142 H 03/22/25 14:01: Urine Color Yellow, Urine Clarity Sl. Cloudy, Urine pH 6.0, Ur Specific [place] 1.015, Urine Protein 30 H, Urine Glucose (UA) Normal, Urine Ketones Negative, Urine Occult Blood 150 H, Urine Nitrite Negative, Urine Bilirubin Negative, Urine Urobilinogen Normal, Ur Leukocyte Esterase 25 H, Urine RBC 0-5 SEEN, Urine WBC 0-5 SEEN, Ur Squamous Epith Cells 0-5 SEEN, Urine Bacteria 0 SEEN, Urine Mucus 0 SEEN 03/22/25 16:10: Lactic Acid 1.3 03/22/25 17:54: POC Glucose 137 H 03/22/25 23:55: Ur Random Sodium < 20, Urine Creatinine 142.00, Urine Potassium 25.6, Urine Chloride < 20, Urine Urea Nitrogen 677 03/23/25 00:15: POC Glucose 134 H 03/23/25 05:15: WBC 15.2 H, RBC 3.49 L, Hgb 10.2 L, Hct 30.9 L, MCV 88.5, MCH 29.2, MCHC 33.0, RDW Std Deviation 46.0 H, RDW Coeff of Reid 14.4, Plt Count 384, MPV 9.3, Immature Gran % (Auto) 3.400 H, Neut % (Auto) 79.4 H, Lymph % (Auto) 11.4 L, [place] % (Auto) 5.4, Eos % (Auto) 0.1, Baso % (Auto) 0.3, Absolute Neuts (auto) 12.1 H, Absolute Lymphs (auto) 1.74, Nucleated RBC % 0, Sodium 139, Potassium 4.0, Chloride 100, Carbon Dioxide 23.4, Anion Gap 15, BUN 65 H, C reatinine 2.51 H, Estim Creat Clear Calc 27.41 L, Est GFR (MDRD) Non-Af 27 L, B UN/Creatinine Ratio 25.7 H, Glucose 132 H, Calcium 8.8, Total Bilirubin 0.32, AST 23, ALT 24, Alkaline Phosphatase 128, Total Protein 6.9, Albumin 3.5, Globulin 3.5, Albumin/Globulin Ratio 1.0, TSH 0.389 Radiography Diagnostic Testing: Radiology Impression Chest X-Ray 03/22/25 13:15 IMPRESSION: Mild cardiomegaly. The lungs are clear. Reading Location: [id number] Abdomen/Pelvis CT 03/22/25 13:30 IMPRESSION: Small-bowel obstruction with air-fluid levels in distended stomach as described. The transition point is in the mid ileal region. Reading Location: [id number] Abdomen X-Ray 03/23/25 05:50 IMPRESSION: Mild bilateral basilar atelectatic pulmonary changes. Moderate diffuse distention/dilatation of the small bowels, probably secondary to partial small bowel obstruction, slightly decreased. Reading Location: [place] [address] Physical Exam GI GI Narrative: Abdomen- distended, hypoactive bowel sounds, nontender to palpation Assessment & Plan Assessment/Plan (1) Small bowel obstruction: PLAN: I am following this patient in conjunction with Dr. Nichole. He has independently evaluated this patient. Labs reviewed. WBC decreased to 15.2 and Creatinine now at 2.51 Single upright KUB obtained this morning showing air within the small bowel. Patient not able to obtain other positional images. Read does note partial small bowel obstruction with slightly decreased distention of the small bowel. Continue IV hydration and NPO until bowel function occurs No surgical intervention planned at this time Obtain KUB tomorrow morning Encourage ambulation We will continue to monitor this patient Charges/Coding Visit Charges Inpatient E&M: 05481 Subs Hosp L2
[2025-03-23 07:05] LABS: Bedside Glucose 137 mg/dL (74-106)
--- NOTE | 2025-03-23 07:12 | PCM.PN.HOSP ---
Reason for Visit Reason for Visit: Diagnoses Unspecified intestinal obstruction, unspecified as to partial versus complete obstruction (03/22/25) Acute kidney failure, unspecified (03/22/25) Vomiting, unspecified (03/22/25) Subjective Subjective Still with nausea. Still with abdominal distention. Objective Data Objective Data Vital Signs: Vital Signs Temp Pulse Resp BP Pulse Ox O2 Del Method 36.7 C 98 20 H 146/64 H 93 Room Air 03/23/25 02:03 03/23/25 06:35 03/23/25 06:35 03/23/25 02:03 03/23/25 04:00 03/23/25 04:00 Oxygen Delivery Method Room Air Weight: 96.978 kg Body Mass Index (BMI) 41.7 Intake & Output: Intake and Output for Last 24 Hours 03/21/25 03/22/25 03/23/25 23:59 23:59 23:59 Intake Total 2000 / 2000 1000 / 1000 Output Total 0 / 250 650 / 650 Balance 2000 / 1750 350 / 350 Lab / Micro Data 03/23/25 05:15 03/23/25 05:15 Labs: Laboratory Results - last 24 hr 03/22/25 11:27: WBC 16.4 H, RBC 3.71 L, Hgb 11.0 L, Hct 32.8 L, MCV 88.4, MCH 29.6, MCHC 33.5, RDW Std Deviation 45.5 H, RDW Coeff of Reid 14.3, Plt Count 398, MPV 9.5, Immature Gran % (Auto) 1.500 H, Neut % (Auto) 84.0 H, Lymph % (Auto) 8.8 L, [place] % (Auto) 5.2, Eos % (Auto) 0.0, Baso % (Auto) 0.5, Absolute Neuts (auto) 13.8 H, Absolute Lymphs (auto) 1.44, Nucleated RBC % 0, Platelet Estimate A, Polychromasia 1+, Sodium 133, Potassium 4.5, Chloride 93 L, Carbon Dioxide 20.0 L, Anion Gap 19 H, BUN 74 H, Creatinine 3.61 H, Estim Creat Clear Calc 19.30 L, Est GFR (MDRD) Non-Af 18 L, BUN/Creatinine Ratio 20.4 H, Glucose 135 H, Calcium 9.1, Total Bilirubin 0.36, AST 30, ALT 26, Alkaline Phosphatase 112, Total Protein 7.8, Albumin 3.7, Globulin 4.1, Albumin/Globulin Ratio 0.9, Lipase 13 03/22/25 11:34: POC Glucose 142 H 03/22/25 14:01: Urine Color Yellow, Urine Clarity Sl. Cloudy, Urine pH 6.0, Ur Specific [place] 1.015, Urine Protein 30 H, Urine Glucose (UA) Normal, Urine Ketones Negative, Urine Occult Blood 150 H, Urine Nitrite Negative, Urine Bilirubin Negative, Urine Urobilinogen Normal, Ur Leukocyte Esterase 25 H, Urine RBC 0-5 SEEN, Urine WBC 0-5 SEEN, Ur Squamous Epith Cells 0-5 SEEN, Urine Bacteria 0 SEEN, Urine Mucus 0 SEEN 03/22/25 16:10: Lactic Acid 1.3 03/22/25 17:54: POC Glucose 137 H 03/22/25 23:55: Ur Random Sodium < 20, Urine Creatinine 142.00, Urine Potassium 25.6, Urine Chloride < 20, Urine Urea Nitrogen 677 03/23/25 00:15: POC Glucose 134 H 03/23/25 05:15: WBC 15.2 H, RBC 3.49 L, Hgb 10.2 L, Hct 30.9 L, MCV 88.5, MCH 29.2, MCHC 33.0, RDW Std Deviation 46.0 H, RDW Coeff of Reid 14.4, Plt Count 384, MPV 9.3, Immature Gran % (Auto) 3.400 H, Neut % (Auto) 79.4 H, Lymph % (Auto) 11.4 L, [place] % (Auto) 5.4, Eos % (Auto) 0.1, Baso % (Auto) 0.3, Absolute Neuts (auto) 12.1 H, Absolute Lymphs (auto) 1.74, Nucleated RBC % 0, Sodium 139, Potassium 4.0, Chloride 100, Carbon Dioxide 23.4, Anion Gap 15, BUN 65 H, Creatinine 2.51 H, Estim Creat Clear Calc 27.41 L, Est GFR (MDRD) Non-Af 27 L, BUN/Creatinine Ratio 25.7 H, Glucose 132 H, Calcium 8.8, Total Bilirubin 0.32, AST 23, ALT 24, Alkaline Phosphatase 128, Total Protein 6.9, Albumin 3.5, Globulin 3.5, Albumin/Globulin Ratio 1.0, TSH 0.389 03/23/25 05:59: POC Glucose 137 H Radiography Diagnostic Testing: Radiology Impression Chest X-Ray 03/22/25 13:15 IMPRESSION: Mild cardiomegaly. The lungs are clear. Reading Location: [id number] Abdomen/Pelvis CT 03/22/25 13:30 IMPRESSION: Small-bowel obstruction with air-fluid levels in distended stomach as described. The transition point is in the mid ileal region. Reading Location: [id number] Abdomen X-Ray 03/23/25 05:50 IMPRESSION: Mild bilateral basilar atelectatic pulmonary changes. Moderate diffuse distention/dilatation of the small bowels, probably secondary to partial small bowel obstruction, slightly decreased. Reading Location: [place] [address] Physical Exam Const alert and no apparent distress HEENT head/scalp atraumatic and moist oral mucous membranes HEENT Narrative: Tongue protruding from her mouth. Tongue protruding from mouth Resp normal respiratory effort, no retractions, no use of accessory muscles and clear to auscultation bilaterally Cardio regular rate, regular rhythm, S1 normal heart sound and S2 normal heart sound GI normal to inspection, nondistended, normoactive bowel sounds, soft to palpation, non-tender and non-distended Extremity normal to inspection and full ROM Assessment & Plan Assessment/Plan (1) Small bowel obstruction: PLAN: NPO General surgery following. (2) Acute kidney injury: PLAN: suspect prerenal/ATN. improving with IVF PLAN: Plan Chronic conditions: Schizophrenia: Clozaril, Tegretol, olanzapine held given NPO status. DM2; SSI COPD: stable. hypothyroidism: levothyroxine VTE prophylaxis: SCDs. Charges/Coding Visit Charges Inpatient E&M: 28643 Subs Hosp L2
--- NOTE | 2025-03-23 09:56 | CASEMGMT ---
Social Work- SW called pt sister/POA to confirm return to [facility]. Pt sister agreeable. DCA updated. Plan: [facility]; intermediate level of care EDINSON Cabello
--- NOTE | 2025-03-23 10:25 | CASEMGMT ---
Addendum entered by Mayela Chua 03/23/25 10:47: Fax confirmation rec'd. Mayela Chua DC Planning Asst. Original Note: Discharge Planning Updates faxed to [facility]. Mayela Chua DC Planning Asst.
[2025-03-23 12:42] LABS: Bedside Glucose 122 mg/dL (74-106)
[2025-03-23 21:44] LABS: Bedside Glucose 137 mg/dL (74-106)
--- NOTE | 2025-03-24 00:08 | PCM.HOSP.N ---
Hospitalist Note Patient with mild dyspnea, crackles at bases, has been on NS 150 cc/hr since presentation, weight upon presentation 210 lb, now up to 213 lb, will decrease rate of IVFs given NPO status with SBO and obtain CXR.
[2025-03-24] MEDS: 0.9% Normal Saline (1000mL) 1,000 ML 75 ML IV ×2 (00:21→14:39)
--- NOTE | 2025-03-24 00:30 | RAD_ITS ---
PROCEDURE: CHEST 1 VIEW (PORTABLE) 03/24/2025 REASON FOR EXAM: DYSPNEA TECHNIQUE: Frontal view of the chest. COMPARISON: 03/22/2025. FINDINGS: Interval appearance of mild bilateral basilar atelectatic pulmonary changes. There is no demonstrated pleural abnormality. Normal heart and pericardium. Normal mediastinum and ruben. Normal visualized pulmonary arteries. Normal visualized aortic arch and descending thoracic aorta. Normal visualized thoracic spine. Normal visualized ribs, clavicles, and shoulders. There is no demonstrated abnormality of the visualized soft tissue structures of the upper abdomen. RAD/Chest 1 View (Portable) IMPRESSION: Interval appearance of mild bilateral basilar atelectatic pulmonary changes. Reading Location: [facility]
[2025-03-24 04:59] LABS: Bedside Glucose 109 mg/dL (74-106)
--- NOTE | 2025-03-24 05:22 | RAD_ITS ---
PROCEDURE: ABDOMEN SINGLE VIEW (PORTABLE) N/A REASON FOR EXAM: SMALL BOWEL OBSTRUCTION TECHNIQUE: ABDOMEN SINGLE VIEW (PORTABLE) COMPARISON: 03/23/2025. FINDINGS: Moderate gaseous distention of the small bowels, unchanged. Normal visualized lung bases. There is no demonstrated free abdominal air. Normal visualized liver. Normal visualized spleen. Normal visualized kidneys. The soft tissue structures of the pelvis are unremarkable. Diffuse spondylosis. RAD/Abdomen Single View (Portable) IMPRESSION: Moderate gaseous distention of the small bowels, unchanged. Reading Location: [facility]
[2025-03-24 06:37] VITALS: BP 135/70; PULSE 111; RESP 20; TEMP 36.8; O2SAT 94
[2025-03-24] MEDS: Ondansetron 4 MG/2 ML Vial IV ×2 (06:40→14:39)
[2025-03-24] MEDS: 0.9% Saline Lock 10 ML Syringe IV (06:40)
[2025-03-24 06:59] LABS: Hematocrit 33.1 % (40-54); Hemoglobin 10.6 g/dL (13.0-16.5); Mean Corpuscular Volume 90.7 fL (80-94); Mean Platelet Vol. 9.1 fl (6.2-12.0); POSITIVE COUNT YES; POSITIVE MORPHOLOGY YES; Platelet Count 411 K/mm3 (150-450); RBC Distribution Width CV 14.6 % (11.6-14.6); RBC Distribution Width SD 48.4 fl (35.1-43.9); Red Blood Count 3.65 M/mm3 (4.6-6.2); White Blood Count 16.8 K/mm3 (4.4-11.0)
[2025-03-24 07:04] LABS: Bedside Glucose 116 mg/dL (74-106)
[2025-03-24 07:08] LABS: Differential Indicated MANUAL DIFF
[2025-03-24] MEDS: Albuterol 2.5 MG/3 ML VIAL.NEB. INHALATION ×3 (07:12→19:43)
[2025-03-24] MEDS: Budesonide Respules 0.5 MG/2 ML AMPUL.NEB. INHALATION ×2 (07:13→19:43)
[2025-03-24 07:14] VITALS: PULSE 110; RESP 20
--- NOTE | 2025-03-24 07:20 | PCM.PN.HOSP ---
Reason for Visit Reason for Visit: Diagnoses Unspecified intestinal obstruction, unspecified as to partial versus complete obstruction (03/22/25) Acute kidney failure, unspecified (03/22/25) Vomiting, unspecified (03/22/25) Subjective Subjective Still with abdominal distention. Objective Data Objective Data Vital Signs: Vital Signs Temp Pulse Resp BP Pulse Ox O2 Del Method 36.8 C 112 H 20 H 135/70 H 94 Room Air 03/24/25 06:37 03/24/25 07:14 03/24/25 07:14 03/24/25 06:37 03/24/25 06:37 03/24/25 06:43 Oxygen Delivery Method Room Air Weight: 96.978 kg Body Mass Index (BMI) 41.7 Intake & Output: Intake and Output for Last 24 Hours 03/22/25 03/23/25 03/24/25 23:59 23:59 23:59 Intake Total 1999 2942.5 / 2942.5 778.75 / 778.75 Output Total 0 / 250 650 / 650 Balance 1999 2292.5 / 2292.5 778.75 / 778.75 Lab / Micro Data 03/24/25 06:12 03/24/25 06:12 Labs: Laboratory Results - last 24 hr 03/23/25 12:15: POC Glucose 122 H 03/23/25 16:43: POC Glucose 137 H 03/23/25 23:22: POC Glucose 109 H 03/24/25 06:12: WBC 16.8 H, RBC 3.65 L, Hgb 10.6 L, Hct 33.1 L, MCV 90.7, MCH 29.0, MCHC 32.0, RDW Std Deviation 48.4 H, RDW Coeff of Reid 14.6, Plt Count 411, MPV 9.1, Neut % (Auto) Not Reportable 03/24/25 06:35: POC Glucose 116 H Radiography Diagnostic Testing: Radiology Impression Chest X-Ray 03/24/25 00:30 IMPRESSION: Interval appearance of mild bilateral basilar atelectatic pulmonary changes. [facility] 03/24/25 05:22 IMPRESSION: Moderate gaseous distention of the small bowels, unchanged. Reading Location: [place] [id number] Physical Exam Const alert and no apparent distress HEENT head/scalp atraumatic and moist oral mucous membranes Resp normal respiratory effort, no retractions, no use of accessory muscles and clear to auscultation bilaterally Cardio regular rate, regular rhythm, S1 normal heart sound and S2 normal heart sound GI normal to inspection, nondistended, normoactive bowel sounds, soft to palpation, non-tender and non-distended Assessment & Plan Assessment/Plan (1) Small bowel obstruction: PLAN: NPO General surgery following. NGT previously attempted, but was unable to advance. unchanged at this time. (2) Acute kidney injury: PLAN: suspect prerenal/ATN. improving with IVF PLAN: Plan Chronic conditions: Schizophrenia: Clozaril, Tegretol, olanzapine held given NPO status. DM2; SSI COPD: stable. hypothyroidism: levothyroxine VTE prophylaxis: SCDs. Charges/Coding Visit Charges Inpatient E&M: 08799 Subs Hosp L2
[2025-03-24 07:29] LABS: Anion Gap 19 (5-15); BUN 51 mg/dL (4-19); BUN/Creat Ratio 26.8 RATIO (10-20); Calcium,Total 9.2 mg/dL (7.6-11.0); Carbon Dioxide 21.9 mmol/L (21.0-32.0); Chloride 105 mmol/L (98-108); Creatinine, Serum 1.91 mg/dL (0.70-1.20); EST Glomerular Filtration Rate 38 (>60); Estimated Creatinine Clearance 36.02 ml/min (50-250); Glucose 119 mg/dL (70-99); Potassium 3.8 mmol/L (3.3-5.1); Sodium Level 146 mmol/L (133-145)
--- NOTE | 2025-03-24 08:13 | PCM.PN.SRG ---
Subjective Subjective Patient evaluated resting comfortably in bed. He notes belching. He notes some nausea. Negative bowel movement and vomiting. Negative flatus. Objective Data Objective Data Vital Signs: Vital Signs Temp Pulse Resp BP Pulse Ox O2 Del Method 98.2 F 110 H 20 H 135/70 H 94 Room Air 03/24/25 06:37 03/24/25 07:14 03/24/25 07:14 03/24/25 06:37 03/24/25 06:37 03/24/25 06:43 Oxygen Delivery Method Room Air Weight: 213 lb 12.8 oz Body Mass Index (BMI) 41.7 Intake & Output: Intake and Output for Last 24 Hours 03/22/25 03/23/25 03/24/25 23:59 23:59 23:59 Intake Total 1999 2942.5 / 2942.5 778.75 / 778.75 Output Total 0 250 650 / 650 Balance 1999 2292.5 / 2292.5 778.75 / 778.75 Lab / Micro Data 03/24/25 06:12 03/24/25 06:12 Labs: Laboratory Results - last 24 hr 03/23/25 12:15: POC Glucose 122 H 03/23/25 16:43: POC Glucose 137 H 03/23/25 23:22: POC Glucose 109 H 03/24/25 06:12: WBC 16.8 H, RBC 3.65 L, Hgb 10.6 L, Hct 33.1 L, MCV 90.7, MCH 29.0, MCHC 32.0, RDW Std Deviation 48.4 H, RDW Coeff of Reid 14.6, Plt Count 411, MPV 9.1, Neut % (Auto) Not Reportable, Sodium 146 H, Potassium 3.8, Chloride 105, Carbon Dioxide 21.9, Anion Gap 19 H, BUN 51 H, Creatinine 1.91 H, Estim Creat Clear Calc 36.02 L, Est GFR (MDRD) Non-Af 38 L, BUN/Creatinine Ratio 26.8 H, Glucose 119 H, Calcium 9.2 03/24/25 06:35: POC Glucose 116 H Radiography Diagnostic Testing: Radiology Impression Chest X-Ray 03/24/25 00:30 IMPRESSION: Interval appearance of mild bilateral basilar atelectatic pulmonary changes. Reading Location: [place] [address] KUB X-Ray 03/24/25 05:22 IMPRESSION: Moderate gaseous distention of the small bowels, unchanged. Reading Location: [place] [address] Physical Exam GI GI Narrative: Abdomen- distended, firm, no active bowel sounds. Slight pressure sensation Assessment & Plan Assessment/Plan (1) Small bowel obstruction: PLAN: I am following this patient in conjunction with Dr. Kim in Dr. Nichole's absence. He has independently evaluated this patient. Labs reviewed. WBC increased KUB obtained and demonstrated moderate gaseous distention of the small bowels, unchanged from yesterdays image Continue NPO at this time No surgical intervention planned We will continue to monitor this patient Charges/Coding Visit Charges Inpatient E&M: 90454 Subs Hosp L2
[2025-03-24 08:35] LABS: Lymphocyte 20 % (19-41); Metamyelocyte 2 % (0-1); Myelocyte 1 % (0-0); Neutrophil-Segmented 76 % (47-70); Platelet Estimate ADEQUATE (ADEQ); Promyelocyte 1 % (0-0); Red Cell Morphology NORM C+C NORMAL (NORM C&C); Total Cells Counted 100 (MANUAL DIFF)
[2025-03-24 08:36] LABS: Absolute Neutrophil Count 12.8 X10^3/uL (2.0-7.7); Pathologist Review May foll
[2025-03-24 10:36] VITALS: BP 130/81; PULSE 112; RESP 20; TEMP 37.7; O2SAT 96
[2025-03-24 12:29] VITALS: PULSE 110; RESP 20
[2025-03-24 13:04] LABS: Bedside Glucose 118 mg/dL (74-106)
[2025-03-24 15:00] VITALS: BP 124/80; PULSE 110; RESP 20; TEMP 37.6; O2SAT 96
[2025-03-24 18:15] LABS: Bedside Glucose 105 mg/dL (74-106)
[2025-03-24 19:43] VITALS: PULSE 116; RESP 24
--- NOTE | 2025-03-24 21:28 | NURSING ---
LINEN CONTROLLER pushed staff assist and this Rn walking to the room when she said the pt had fallen in the bathroom face first. This RN called for PLANT CULTURE MANAGER and then LINEN CONTROLLER came running out again and informed this RN I think he isnt breathing. This RN Told Carole LINEN CONTROLLER to call emile valdes THis RN in to check a pulse, while Carole called emile valdes and got crash cart. This RN was attempting to turn pt over to start chest compressions when primary nurse came in and said pt was a DNRCC-A no intubation. Nubia CONVEYOR LINE BAKERY WORKER first to respond. Vivien Set Up Mechanic Coating Machines, Dr. Rodriguez then came to the room.
--- NOTE | 2025-03-24 21:30 | PCM.HOSP.N ---
Hospitalist Note Patient found in the restroom, recently used toilet, unresponsive, no heart beat, not breathing. Noted DNR-CCA, no intubation. Patient did have emesis on his face. Updated Surgery service who has been following and contacted patient POA Sister and updated on his . DOD: 03/24/25, TOD: 9:08 pm (approximated).
--- NOTE | 2025-03-24 21:45 | NURSING ---
2109 this RN responded to CIRCULATING PROCESS INSPECTOR overhead alert. Pt prone in bathroom in puddle of green vomit with several staff members present. Staff preparing to call Code blue due to pt not breathing/no pulse. Made staff aware of pt's DNR status. Monitor attached to pt to confirm asystole rhythm. Pt cyanotic. Rolled pt to supine position and assisted to bed. Dr. Rodriguez present and made family aware of pt's status. IV removed. packet printed, [employer] notified, and Vivien nursing supervisor gas meter repair spoke with family regarding home placement which they would prefer pt to go to [facility]. Post mortem care provided. No personal items present.
--- NOTE | 2025-03-25 15:59 | PCM.DEATH ---
Preliminary Cause of Preliminary Cause of Preliminary Cause of : small bowel obstruction. Date of Admission: 03/22/25 Date of : 03/24/25 (2107) Principle Diagnosis Problem List: Active and Suspected Problems (Updated 03/22/25 @ 15:[address] Byron Kyle DO) Dementia (Acute) Acute kidney injury (Acute) Vomiting (Acute) Small bowel obstruction (Acute) Hospital Course Patient presented with bowel obstruction. Patient was unable to tolerate an NG tube. Patient was slowly progressing but still was having abdominal distention and vomiting. On the evening of the , patient was on the toilet and was found unresponsive without a pulse. His CODE STATUS was DNR Comfort Care arrest. Patient was noted to have emesis covering his face. Patient was pronounced at 2107. Visit Charges Inpatient E&M: 82603 Disch Hosp
== END 2025-03-24 21:13 | DRG 247 ==
LOC: ED 15:04 → MS3 16:02
PROVIDERS: Admitting Provider Internal Medicine; Emergency Provider Emergency Medicine; PCP Family Medicine; Referring Provider Internal Medicine
DX: K56.600 Partial intestinal obstruction, unspecified as to cause (principal); N17.0 Acute kidney failure with tubular necrosis; Z66 Do not resuscitate; J44.9 Chronic obstructive pulmonary disease, unspecified; E11.9 Type 2 diabetes mellitus without complications; F20.9 Schizophrenia, unspecified; E03.9 Hypothyroidism, unspecified; I10 Essential (primary) hypertension; F17.200 Nicotine dependence, unspecified, uncomplicated; I95.9 Hypotension, unspecified; N13.8 Other obstructive and reflux uropathy; R06.00 Dyspnea, unspecified; N40.1 Benign prostatic hyperplasia with lower urinary tract symptoms; Z79.84 Long term (current) use of oral hypoglycemic drugs; Z79.51 Long term (current) use of inhaled steroids; Z79.82 Long term (current) use of aspirin; Z79.899 Other long term (current) drug therapy
CPT/HCPCS: 36415; 71045; 74018; 74019; 74176; 80048; 80053; 81001; 82436; 82570; 82962; 83605; 83690; 84133; 84300; 84443; 84540; 85025; 94640; 99284; 99285; P9612; A4216; J2405